=== PATIENT | female | born 1955 | race Caucasian/White ===

== ENCOUNTER 2024-09-12 08:02 | Outpatient (AMB) | payer OTHER, SELFPAY ==
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
[2024-09-12 08:13] VITALS: BP 110/80; PULSE 92; TEMP 37.2; O2SAT 97; BMI 27.3
== END 2024-09-12 08:44 | disposition home or self-care (01) ==
PROVIDERS: PCP Internal Medicine; Visit Provider Physician Assistant
DX: J06.9 Acute upper respiratory infection, unspecified (principal); H66.001 Acute suppurative otitis media without spontaneous rupture of ear drum, right ear

== ENCOUNTER 2024-09-12 08:02 | Outpatient (REF) | payer OTHER, SELFPAY ==
[2024-09-12 10:43] LABS: Influenza A PCR NEGATIVE (Negative); Influenza B PCR NEGATIVE (Negative); Resp Syncy Virus RNA Qual PCR NEGATIVE (Negative); SARS COV2 PCR INHOUSE POSITIVE (Negative)
== END 2024-09-12 08:03 | disposition home or self-care (01) ==
LOC: HO.LAB 08:02
PROVIDERS: PCP Internal Medicine; Visit Provider Physician Assistant
DX: J06.9 Acute upper respiratory infection, unspecified (principal); H66.001 Acute suppurative otitis media without spontaneous rupture of ear drum, right ear
CPT/HCPCS: 0241U; 99202

== ENCOUNTER 2024-09-13 09:00 | Outpatient (AMB) | payer OTHER, SELFPAY ==
[2024-09-13 09:06] VITALS: BP 122/88; PULSE 105; TEMP 36.8; O2SAT 98; BMI 27.3
--- NOTE | 2024-09-13 09:06 | MHC.OFFWIV ---
Intake Vital Signs 09/13/24 09:06 Height 5 ft 3 in Weight 154 lb BMI 27.3 BP 122/88 Blood Pressure Location Rt brachial Position Sitting Pulse 105 H Temp 98.3 F Temp Source Oral Pulse Oximetry (%) 98 Oxygen Delivery Method Room Air Intake Visit Reasons: EP-Covid pos, Worsening symptoms Intake Note: Pt is here today c/o Rt ear pain and she tested positive for COVID-19 yesterday Patient Tobacco Use Status: Never used Tobacco Allergies Sulfa (Sulfonamide Antibiotics) Allergy (Mild, Verified 09/13/24 09:11) Hives lisinopril Adverse Reaction (Mild, Verified 09/13/24 09:11) Cough HPI EP-Covid pos, Worsening symptoms HPI Details Patient returns to walk-in after presenting yesterday with viral/respiratory symptoms and ear pain. Diagnosed with otitis media and prescribed Augmentin. Patient also notes some worsening chest congestion. However, COVID nasal swab was obtained and is returning positive. PFSH Social History Patient Tobacco Use Status: Never used Tobacco Review of Systems Const Details: See HPI Physical Exam Vital Signs: Last Vital Signs Temp 98.3 F 09/13/24 09:06 BP 122/88 09/13/24 09:06 BMI result Body Mass Index 27.3 Const Other: Patient appears mildly ill/on comfortable HEENT Other: Erythema at right TM with inferior crescent of pus Left TM is mildly erythematous Posterior pharynx with erythema/injection No patchy exudates + anterior cervical chain lymphadenopathy Assessment & Plan Assessment & Plan (1) Otitis media: Code(s): H66.90 - Otitis media, unspecified, unspecified ear Qualifiers: Otitis media type: suppurative Chronicity: acute Laterality: right Recurrence: non-recurrent Spontaneous tympanic membrane rupture: without spontaneous rupture Qualified Code(s): H66.001 - Acute suppurative otitis media without spontaneous rupture of ear drum, right ear Plan: Ongoing right otitis media Patient is on Augmentin and as only started yesterday Continue current medication regimen Can use ibuprofen and warm compresses (2) COVID-19 virus infection: Code(s): U07.1 - COVID-19 Plan: Now testing positive for COVID-19 Lungs sound coarse bilaterally but otherwise clear. Will give her a script for Paxlovid Risks/benefits discussed with patient Hydrate well Call or return to office if worsening symptoms Medications: New nirmatrelvir-ritonavir 300 mg (150 mg x 2)-100 mg (Paxlovid) take TWO 150 mg tablets of nirmatrelvir with ONE 100 mg tablet of ritonavir twice daily for 5 days PO. Hold Statin. 30 ea 0RF U07.1 - COVID-19 Coding Level of Care Code Est Pt Level 3 (72854) Diagnoses Non-recurrent acute suppurative otitis media of right ear without spontaneous rupture of tympanic membrane H66.001 Otitis media type: suppurative Chronicity: acute Laterality: right Recurrence: non-recurrent Spontaneous tympanic membrane rupture: without spontaneous rupture COVID-19 virus infection U07.1
== END 2024-09-13 11:59 | disposition home or self-care (01) ==
LOC: HO.HMCWIC 09:01
PROVIDERS: PCP Internal Medicine
DX: H66.001 Acute suppurative otitis media without spontaneous rupture of ear drum, right ear (principal); U07.1 COVID-19

== ENCOUNTER → 2024-09-13 09:00 | Outpatient (BNVA) | payer OTHER, SELFPAY | PROVIDERS: PCP Internal Medicine | DX: H66.001 Acute suppurative otitis media without spontaneous rupture of ear drum, right ear (principal); U07.1 COVID-19 | CPT/HCPCS: 99212 ==

== ENCOUNTER 2024-11-26 13:29 | Outpatient (AMB) | payer OTHER, SELFPAY ==
--- OUTSIDE RECORDS SUMMARY | 2024-11-26 13:48 | XMS_ITS | Encounter Summary ---
Author Organization [facility] Address [address] [place] [address] Care Team Providers Care Electronic Scale Assembler And Tester Name Role Phone Bhakti Escalona MD Primary Care Prov ider Encounter Details Date Type Department Care Team Description 09/21/2023 Pt. Non Urgent Medical Question Adult Medicine [address] [address] Bhakti Escalona MD [address] [place] [address] Social History Tobacco Use Types Packs/Day Years Used Date Smoking Tobacco: Never Smokeless Tobacco: Never Alcohol Use Standard Drinks/Week Comments No 0 (1 standard drink = 0.6 oz pur e alcohol) 2-3 beer/wine per week Sex Assigned at Date Recorded Not on file Job Start Date Occupation Industry Not on file Not on file Not on file COVID-19 Exposure Response Date Recorded In the last 10 days, have yo u been in contact with someone who was confirmed or suspected to have Coronavirus/COVID-19? No / Unsure 08/24/2023 11:04 AM EST documented as of this encounter Plan of Treatment Not on file documented as of this encounter Visit Diagnoses Not on filedocumented in this encounter Care Teams Electronic Scale Assembler And Tester Relationship Specialty Start Date End Date Bhakti Escalona MD [address] [place] [address] PCP - General Internal Medicine 04/06/22 documented as of this encounter
--- OUTSIDE RECORDS SUMMARY | 2024-11-26 13:48 | XMS_ITS | Encounter Summary ---
Author Organization [facility] Address [address] [place] [address] Care Team Providers Care Biomedical Scientist Name Role Phone Michael Garland MD Primary Care Provider [phone] Gab Kerns PA-C Primary Care Provider Stephani Sun MD Primary Care Provider Louann Ramirez MD Primary Care Provider Bhakti Arciniega MD Primary Care Prov ider Encounter Details Date Type Department Care Team Description 07/03/2016 [facility] Medical Records [address] [place] [address] Abstract, Provider Social History Tobacco Use Types Packs/Day Years Used Date Smoking Tobacco: Never Smokeless Tobacco: Never Alcohol Use Standard Drinks/Week Comments Yes 0 (1 standard drink = 0.6 oz pur e alcohol) 2-3 beer/wine per week Sex Assigned at Date Recorded Not on file Job Start Date Occupation Industry Not on file Not on file Not on file documented as of this encounter Plan of Treatment Not on file documented as of this encounter Visit Diagnoses Not on filedocumented in this encounter Care Teams Biomedical Scientist Relationship Specialty Start Date End Date Michael Garland MD [address] [place], [place] [phone] PCP - General 12/26/09 02/27/21 Gab Kerns PA-C [address] [place] [address] PCP - General Internal Medicine 02/28/21 08/01/21 Stephani Sun MD [address] [place] [address] PCP - General Internal Medicine 08/02/21 09/06/21 Louann Ching MD [address] [place] [address] PCP - General Internal Medicine 09/07/21 04/05/22 Pascual Williamson, Bhakti Cooley MD [address] [place] [address] PCP - General Internal Medicine 04/06/22 documented as of this encounter
--- OUTSIDE RECORDS SUMMARY | 2024-11-26 13:48 | XMS_ITS | Encounter Summary ---
Author Organization [facility] Address [address] [place] [address] Care Team Providers Care Linux Consultant Name Role Phone Michael Garland MD Primary Care Provider [phone] Gab Kerns PA-C Primary Care Provider Stephani Sun MD Primary Care Provider Louann Ramirez MD Primary Care Provider Bhakti Arciniega MD Primary Care Prov ider Encounter Details Date Type Department Care Team Description 02/11/2019 Release of Information Medical Records [address] [place] [address] Abstract, Provider Social History Tobacco Use Types [...] on filedocumented in this encounter Care Teams Linux Consultant Relationship Specialty Start Date End Date Michael Garland MD [address] [place], [place] [phone] PCP - General 12/26/09 02/27/21 Gab Kerns PA-C [address] [place] [address] PCP - General Internal Medicine 02/28/21 08/01/21 Stephani Sun MD [address] [place] [address] PCP - General Internal Medicine 08/02/21 09/06/21 Louann Ching MD [address] [place] [address] PCP - General Internal Medicine 09/07/21 04/05/22 Pascual Williamson, Bhakti Cooley MD [address] [place] [address] PCP - General Internal Medicine 04/06/22 documented as of this encounter
--- OUTSIDE RECORDS SUMMARY | 2024-11-26 13:48 | XMS_ITS | Encounter Summary ---
Author Organization [facility] Address [address] [place] [address] Care Team Providers Care Endocrinology Specialist Name Role Phone Louann Ching MD [facility] Bhakti Wilson MD Primary Care Prov ider Encounter Details Date Type Department Care Team Description 09/27/2021 Driver/Guide Report Medical Records [address] [place] [address] Stanislaw Victor MD Social History Tobacco Use Types Packs/Day Years [...] on filedocumented in this encounter Care Teams Endocrinology Specialist Relationship Specialty Start Date End Date Louann Ching MD PCP - General Internal Medicine 09/07/21 04/05/22 Bhakti Escalona MD [address] [place] [address] PCP - General Internal Medicine 04/06/22 documented as of this encounter
--- OUTSIDE RECORDS SUMMARY | 2024-11-26 13:49 | XMS_ITS | Encounter Summary ---
Author Organization [facility] Address [address] [place] [address] Care Team Providers Care Steam Shovelman Name Role Phone Bhakti Escalona MD Primary Care Prov ider Encounter Details Date Type Department Care Team Description 05/17/2023 Meat Grading Machine Operator Report Medical Records [address] [place] [address] Jacquie Stovall Social History Tobacco Use Types Packs/Day Years [...] on filedocumented in this encounter Care Teams Steam Shovelman Relationship Specialty Start Date End Date Bhakti Escalona MD [address] [place], [place] [phone] PCP - General Internal Medicine 04/06/22 documented as of this encounter
--- OUTSIDE RECORDS SUMMARY | 2024-11-26 13:49 | XMS_ITS | Encounter Summary ---
Author Organization [facility] Address [address] [place] [address] Care Team Providers Care Rn Bone Marrow Transplant Name Role Phone Michael Garland MD Primary Care Provider [phone] Gab Kerns PA-C Primary Care Provider [phone] Stephani Sun MD Primary Care Provider Louann Ramirez MD Primary Care Provider Bhakti Arciniega MD Primary Care Prov ider Reason for Visit * Reason Onset Date Comments refill request 02/11/2018 Encounter Details Date Type Department Care Team Description 02/11/2018 Refill Adult Medicine [facility] - [address] [phone] Michael Garland MD [address] [place] [address] [phone] refill request Social History Tobacco Use Types Packs/Day Years Used Date Smoking Tobacco: Never Smokeless Tobacco: Never Alcohol Use Standard Drinks/Week Comments No 0 (1 standard drink = 0.6 oz pur e alcohol) 2-3 beer/wine per week Sex Assigned at Date Recorded Not on file Job Start Date Occupation Industry Not on file Not on file Not on file documented as of this encounter Miscellaneous Notes * Telephone Encounter - Nicole Hutton M.A. - 02/11/2018 3:46 PM EDT Lab Results Component Value Date NA 141 05/20/2017 K 4.2 05/20/2017 CO2 25.6 05/20/2017 CL 100 05/20/2017 BUN 13 05/20/2017 CREAT 0.8 05/20/2017 GLU 109 05/20/2017 CA 9.8 05/20/2017 GFR > 60 05/20/2017 * Telephone Encounter - Kalpana Laureano - 02/11/2018 8:53 AM EDT Patient would like script to be: E-PRESCRIBED/FAXED TO PHARMACY WHEN WAS THE PATIENT'S LAST APPOINTMENT IN ADULT MEDICINE? 12/26/17 WHEN WAS THE LAST TIME THE PATIENT SAW THEIR PCP? 11/07/17 Does patient have an upcoming appointment? Yes 05/15/18 (THE MEDICATION REQUESTED IS ON THE MED LIST ABOVE) All of the medications requested were on the CURRENT MEDS list Did you check the Pharmacy information above?: YES Patient wants: 90 -day supply Is this a mail order prescription request ? YES Patients current insurance carrier is: Payor: [employer] / Plan: [employer] POS $20/$30 [employer] [id number] / Product Type: POS [id number] documented in this encounter Plan of Treatment Not on file documented as of this encounter Visit Diagnoses Not on filedocumented in this encounter Care Teams Rn Bone Marrow Transplant Relationship Specialty Start Date End Date Michael Garland MD [address] [place] [address] PCP - General 12/26/09 02/27/21 Gab Kerns PA-C [address] [place] [address] PCP - General Internal Medicine 02/28/21 08/01/21 Stephani Sun MD [address] [place] [address] PCP - General Internal Medicine 08/02/21 09/06/21 Louann Ching MD [address] [place] [address] PCP - General Internal Medicine 09/07/21 04/05/22 Bhakti Escalona MD [address] [place] [address] PCP - General Internal Medicine 04/06/22 documented as of this encounter
--- OUTSIDE RECORDS SUMMARY | 2024-11-26 13:49 | XMS_ITS ---
Author Organization [facility] Address [address] [facility] [address] [place] [address] Care Team Providers Care Training Program Manager Name Role Phone Bhakti Garner Primary Care Provider TIARA Ortiz Unavailable [phone] Allergies Allergen (clinical drug ingredient) Drug/Non Drug Allergy documented on EMR Reaction Allergy Type Onset Date Status Substance with sulfonamide structure and antibacterial mechanism of action (substance) sulfa drugs (uncoded) Unknown Allergy Active VoSoL HC Unknown Drug Allergy Active lisinopril Lisinopril Unknown Drug Allergy Activ e Mold Unknown Allergy Active REASON FOR VISIT 3 month f/u Medications Medication SIG (Take, Route, Frequency, Duration) Notes Start Date End Date Status Nortriptyline HCl 25 MG 1 capsule Orally Once a day Active Turmeric 500 MG as directed Orally Not-Taking Reclast 5 MG/100ML as directed Intravenous Not-Taking ALPRAZolam 0.5 MG 1 tablet Orally Once a day Active Calcium Citrate + D Active Claritin 10 MG 1 tablet Orally Once a day Not-Taking PROzac 20 MG 1 capsule Orally Onc e a day Active Estradiol 0.1 MG/GM as directed Vaginal Not-Taking Losartan Potassium 50 MG 1 tablet Orally Once a day Active Simvastatin 40 MG 1 tablet in the even ing Orally Once a day Active Omeprazole 20 MG 1 capsule 30 minutes before morning meal Orally Once a day Active Problems Problem Type SNOMED Code ICD Code Onset Dates Problem Status W/U Status Risk Notes Problem Postmenopausal osteoporosis (456996605) Postmenopausal osteoporosis (M81.0) Active confirmed Vital Signs Weight 163.6 lbs 07/18/2024 Height 5ft 3in in 07/18/2024 BMI 28.98 kg/m2 07/18/2024 Heart Rate 80 /min 07/18/2024 Temperature 96.6 degrees Fahrenheit 07/18/20 24 Respiratory Rate 12 /min 07/18/2024 Encounters Encounter Location Date Provider Diagnosis [facility] [address] [facility] [address] [place] [address] 07/18/2024 TIARA SEAY Type 2 diabetes mellitus with hyperglycemia, without long-term current use of insulin E11.65 ; Hallux limitus, right M20.5X1 and Postmenopausal osteoporosis M81.0 Assessments Encounter Date Diagnosis (ICD Code) Assessment Notes Treatment Notes Treatment Clinical Notes Section Notes 07/18/2024 Type 2 diabetes mellitus with hyperglycemia, without long-term current use of insulin (ICD-10 - E11.65) Discussed with patient regarding proper glucose control, exercise, and diet. Explained to patient proper shoe gear, and importance of daily foot checks. I reviewed neuropathy and why it occurs in diabetics. I educated the patient on proper blood sugar control and the importance of an HgBA1c of less than 7.0%. I reviewed the signs and symptoms of neuropathy with the patient. 07/18/2024 Hallux limitus, right (ICD-10 - M20.5X1) The foot callus is resolved. 07/18/2024 Postmenopausal osteoporosis (ICD-10 - M81.0) I discussed her osteoporosis diagnosis. We discussed she is a higher risk of developing stress fractures in the feet. I discussed the signs and symptoms of a stress fracture. We discussed this does not have to be activity dependent. I recommended she call the office with any new onset pain or swelling in the feet. Plan Of Treatment Treatment Notes Assessment Notes Type 2 diabetes mellitus wit h hyperglycemia, without long-term current use of insulin Discussed with patient regarding proper glucose control, exercise, and diet. Explained to patient proper shoe gear, and importance of daily foot checks. I reviewed neuropathy and why it occurs in diabetics. I educated the patient on proper blood sugar control and the importance of an HgBA1c of less than 7.0%. I reviewed the signs and symptoms of neuropathy with the patient. Hallux limitus, right The foot callus is resolved. Postmenopausal osteoporosis I discussed her osteoporosis diagnosis. We discussed she is a higher risk of developing stress fractures in the feet. I discussed the signs and symptoms of a stress fracture. We discussed this does not have to be activity dependent. I recommended she call the office with any new onset pain or swelling in the feet. Next Appt Details Follow Up: 3 Months, Reason: Provider Name:TIARA PURVIS SEAY, 2025 11:30:00 AM, [address] [facility], [facility] [address], [place], [address], Progress Notes * Marichuy HARRISONOB: [birth year] (69 yo F)Acc No.[id number]:07/18/2024 Progress Note Patient:?Nicole HARRISON Provider:?Tiara Seay DPM :1955???Age:69 Y???Sex:Female D ate:07/18/2024 Address:[address] [place], [place] [id number] Pcp:Bhakti Garner Subjective: * Chief Complaints: * ???3 month f/u * HPI: ???Constitutional:? This 69 y/o female returns to my office for a diabetic foot evaluation. The callus has not returned. Overall she denies any pain or recent issues with her feet. She was diagnosed with osteoporosis and is awaiting starting Reclast. She denies any recent stress fractures. She has no other foot complaints this visit. Her hba1c was elevated last time at 7.0. Her last visit with her PCP care team for diabetes management was 03/26/2024. Allergies and medical history reviewed. * ROS:?GENERAL: Pt denies nausea, fever, vomiting, chills, or shortness of breath. Pt in NAD. ALLERGY: patient denies any new allergy HEME/ONC: patient denies any bleeding or clotting disorders CARDIOLOGY: pt denies chest pain, palpitations LUNGS: pt denies shortness of breath ABDOMEN: patient denies any bloating, abdominal pain, or swelling MUSCULOSKELETAL: See HPI, she has occasional joint pain SKIN: see HPI, otherwise no lesions, rash or itching NEURO: No persistent headache, weakness or numbness PSYCH: patient has anxiety The remainder of the review of systems is noncontributory. * Medical History:? * Surgical History:?tonsillect citlali and adenoidectomy eye surgery plastic surgery- ears 4 D&C wisdom teeth extraction hysterectomy * Hospitalization/Major Diagno stic Procedure:?tonsillectomy and adenoidectomy eye surgery plastic surgery- ears hysterectomy * Family History:?Father: hear t attack.?Mother: diabetes, hypertension, , hypercholesterolemia, unknown type of cancer.? * Social History:?Tobacco: no Alcohol: occasional . * Medications:?TakingCalcium C itrate + D ALPRAZolam 0.5 MG Tablet 1 tablet Orally Once a day Nortriptyline HCl 25 MG Capsule 1 capsule Orally Once a day Omeprazole 20 MG Capsule Delayed Release 1 capsule 30 minutes before morning meal Orally Once a day Simvastatin 40 MG Tablet 1 tablet in the evening Orally Once a day Losartan Potassium 50 MG Tablet 1 tablet Orally Once a day PROzac 20 MG Capsule 1 capsule Orally Once a day Taking Calcium Citrate + D Taking ALPRAZolam 0.5 MG Tablet 1 tablet Orally Once a day Taking Nortriptyline HCl 25 MG Capsule 1 capsule Orally Once a day Taking Omeprazole 20 MG Capsule Delayed Release 1 capsule 30 minutes before morning meal Orally Once a day Taking Simvastatin 40 MG Tablet 1 tablet in the evening Orally Once a day Taking Losartan Potassium 50 MG Tablet 1 tablet Orally Once a day Taking PROzac 20 MG Capsule 1 capsule Orally Once a day Not-TakingTurmeric 500 MG Capsule as directed Orally Claritin 10 MG Tablet 1 tablet Orally Once a day Estradiol 0.1 MG/GM Cream as directed Vaginal Reclast 5 MG/100ML Solution as directed Intravenous Medication List reviewed and reconciled with the patientNot-Taking Turmeric 500 MG Capsule as directed Orally Not-Taking Claritin 10 MG Tablet 1 tablet Orally Once a day Not-Taking Estradiol 0.1 MG/GM Cream as directed Vaginal Not-Taking Reclast 5 MG/100ML Solution as directed Intravenous Medication List reviewed and reconciled with the patient * Allergies:?Moldsulfa drugsLi sinoprilVoSoL HCno[Allergies Verified] Objective: * Vitals:?Wt:163.6lbs, Ht: 5ft 3in, BMI:28.98Index, HR:80/min, Temp:96.6F, RR:12/min, Ht-cm: 160.02, Wt-k.21 kg. * Examination: ???General Examination: ???GENERAL: Patient appears well nourished, with NAD. ?VASCULAR: Dorsalis pedis pulses are 2/4 bilaterally and Posterior tibial pulses are 2/4 bilaterally. Capillary filling time within normal limits the digits. No pallor on elevation or rubor on dependency. No varicosities. Denies rest pain or claudication pain. Each foot temperature is within normal limits. ?NEUROLOGICAL: Sharp/dull sensation intact bilaterally, protective sensation intact 10/10 with 5.07 [place] Alondra bilaterally, vibratory sensation with tuning fork intact to the tibial tuberosity bilaterally, position sense intact bilaterally to the tibial tuberosity. ?ORTHOPEDIC: Good muscle strength 4+/5 of all flexors and extensors. Dorsi flexion of ankle , 0 degrees, plantar flexion WNL. No muscle atrophy. Atrophied plantar fat pad bilaterally. ?DERMATOLOGICAL: Normal skin temperature, normal skin turgor. ?BIOMECHANICS: STJ ROM WNL, MTJ ROM WNL, 1st MPJ ROM limited. On weight-bearing, rectus foot position. ?SHOES: sneakers. Assessment: * Assessment: 1.?Type 2 diabetes mellitus with hyperglycemia, without long-term current use of insulin - E11.65 (Primary)?2.?Hallux limitus, right - M20.5X1?3.?Postmenopausal osteoporosis - M81.0? Plan: * Treatment: 2.?Hallux limitus, right? Notes: The foot callus is resolved. ?? 3.?Postmenopausal osteoporos is? Notes: I discussed her osteoporosis diagnosis. We discussed she is a higher risk of developing stress fractures in the feet. I discussed the signs and symptoms of a stress fracture. We discussed this does not have to be activity dependent. I recommended she call the office with any new onset pain or swelling in the feet.?? * Procedure Codes:? * Follow Up:?3 Months * Billing Information: * Visit Code:? 51996 Office Visit, Est Pt., Level 3. * Procedure Codes:? * Sign off status: Completed true * Provider:?Tiara Seay DPM Date:? 07/18/2024 Generated for Dennis zambrano/Faxing/eTransmitting on:?11/26/2024 01:49 PM EST History and Physical Notes * HPI (History of Present Illness) Category Sub-Category Detail Notes Category Not es Constitutional This 69 y/o f bernie returns to my office for a diabetic foot evaluation. The callus has not returned. Overall she denies any pain or recent issues with her feet. She was diagnosed with osteoporosis and is awaiting starting Reclast. She denies any recent stress fractures. She has no other foot complaints this visit. Her hba1c was elevated last time at 7.0. Her last visit with her PCP care team for diabetes management was 03/26/2024. Allergies and medical history reviewed. Examination Category Sub-Category Detail Notes Category Not es General Examination GENERAL: Patient appears well nourished, with NAD. VASCULAR: Dorsalis pedis pulses are 2/4 bilaterally and Posterior tibial pulses are 2/4 bilaterally. Capillary filling time within normal limits the digits. No pallor on elevation or rubor on dependency. No varicosities. Denies rest pain or claudication pain. Each foot temperature is within normal limits. NEUROLOGICAL: Sharp/dull sensation intact bilaterally, protective sensation intact 10/10 with 5.07 [place] Alondra bilaterally, vibratory sensation with tuning fork intact to the tibial tuberosity bilaterally, position sense intact bilaterally to the tibial tuberosity. ORTHOPEDIC: Good muscle strength 4+/5 of all flexors and extensors. Dorsi flexion of ankle , 0 degrees, plantar flexion WNL. No muscle atrophy. Atrophied plantar fat pad bilaterally. DERMATOLOGICAL: Normal skin temperature, normal skin turgor. BIOMECHANICS: STJ ROM WNL, MTJ ROM WNL, 1st MPJ ROM limited. On weight-bearing, rectus foot position. SHOES: sneakers
--- OUTSIDE RECORDS SUMMARY | 2024-11-26 13:49 | XMS_ITS | Encounter Summary ---
Author Organization [facility] Address [address] [place] [address] Care Team Providers Care Conveyor Belt Installer Name Role Phone Michael Garland MD Primary Care Provider [phone] Gab Kerns PA-C Primary Care Provider [phone] Stephani Sun MD Primary Care Provider Louann Ramirez MD Primary Care Provider Bhakti Arciniega MD Primary Care Prov ider Reason for Visit * Reason Onset Date Comments Buggyman Feedback 03/20/2016 Encounter Details Date Type Department Care Team Description 03/20/2016 Telephone Adult Medicine [facility] - [address] [phone] Michael Garland MD [address] [place] [address] [phone] Buggyman Feedback Social History Tobacco Use Types Packs/Day Years [...] encounter Miscellaneous Notes * Telephone Encounter - Michael Garland MD - 03/20/2016 11:14 AM EDT She will need x rays prior to the podiatry appt Find out which side the little piggy is deformed * Telephone Encounter - Jonna Russell - 03/20/2016 11:03 AM EDT Please review this patients new referral request. The referral has been pended. Please complete thefollowing: If approved> sign order If denied>please give instructions and route to your practice nursing pool. Practice nurse should inform referrals and the patient if denied. * Telephone Encounter - Antoine Scott - 03/20/2016 10:48 AM EDT Request for a referral to a [facility]ist for a patient with a [facility] PCP. If patient does NOT have a [facility] PCP they must obtain a referral from their PCP before being seen-do not submit request to Referrals department-contact patient. Luan ANSARI and Juanito ANSARI should not see patients with community PCP's as they are not billed as specialists. Specialty patient is being referred to: Podiatry Name of Specialist patient is seeing: TBD Reason/diagnosis for visit: Sore feet, bend pinkie toe Date of appoinment: TBD If retro, date referral needs to start: TBD Michael Garland Payor: [employer] / Plan[facility] POS [id number] / Product Type: POS [id number] documented in this encounter Plan of Treatment Not on file documented as of this encounter Visit Diagnoses Diagnosis Toe deformity, unspecified laterality- Primary documented in this encounter Care Teams Conveyor Belt Installer Relationship Specialty Start Date End Date Michael Garland MD [address] [place] [address] PCP - General 12/26/09 02/27/21 Gab Kerns PA-C [address] [place] [address] PCP - General Internal Medicine 02/28/21 08/01/21 Stephani Sun MD [address] [place] [address] PCP - General Internal Medicine 08/02/21 09/06/21 Louann Ching MD [address] [place] [address] PCP - General Internal Medicine 09/07/21 04/05/22 Pascual Williamson, Bhakti Cooley MD [address] [place] [address] PCP - General Internal Medicine 04/06/22 documented as of this encounter
--- OUTSIDE RECORDS SUMMARY | 2024-11-26 13:49 | XMS_ITS | Encounter Summary ---
Author Organization [facility] Address [address] [place] [address] Care Team Providers Care Senior Database Administrator Name Role Phone Bhakti Escalona MD Primary Care Prov ider Encounter Details Date Type Department Care Team Description 03/23/2023 [facility] [address] [place] [address] Abstract, Provider Social History Tobacco Use Types [...] suspected to have Coronavirus/COVID-19? No / Unsure 03/23/2023 11:19 AM EDT documented as of this encounter Plan of Treatment Not on file documented as of this encounter Visit Diagnoses Not on filedocumented in this encounter Care Teams Senior Database Administrator Relationship Specialty Start Date End Date Bhakti Escalona MD [address] [place] [address] PCP - General Internal Medicine 04/06/22 documented as of this encounter
--- OUTSIDE RECORDS SUMMARY | 2024-11-26 13:49 | XMS_ITS | Encounter Summary ---
Author Organization [facility] Address [address] [place] [address] Care Team Providers Care Senior Research Analyst Name Role Phone Michael Garland MD Primary Care Provider [phone] Gab Kerns PA-C Primary Care Provider Stephani Sun MD Primary Care Provider Louann Ramirez MD Primary Care Provider Bhakti Arciniega MD Primary Care Prov ider Encounter Details Date Type Department Care Team Description 09/16/2016 Night Triage Doc Medical Records [address] [place] [address] Abstract, Provider Social History Tobacco Use Types [...] filedocumented in this encounter Care Teams Senior Research Analyst Relationship Specialty Start Date End Date Michael Garland MD [address] [place], [place] [phone] PCP - General 12/26/09 02/27/21 Gab Kerns PA-C [address] [place] [address] PCP - General Internal Medicine 02/28/21 08/01/21 Stephani Sun MD [address] [place] [address] PCP - General Internal Medicine 08/02/21 09/06/21 Louann Ching MD [address] [place] [address] PCP - General Internal Medicine 09/07/21 04/05/22 Pascual Williamson, Bhakti Cooley MD [address] [place] [address] PCP - General Internal Medicine 04/06/22 documented as of this encounter
--- OUTSIDE RECORDS SUMMARY | 2024-11-26 13:49 | XMS_ITS | Encounter Summary ---
Author Organization [facility] Address [address] [place] [address] Care Team Providers Care Application Support Lead Name Role Phone Louann Ching MD Primary Care Provider Bhakti Arciniega MD Primary Care Prov ider Encounter Details Date Type Department Care Team Description 01/24/2022 Business Doc Medical Records [address] [place] [address] Abstract, Provider Social History Tobacco Use Types [...] suspected to have Coronavirus/COVID-19? No / Unsure 01/20/2022 10:51 AM EDT documented as of this encounter Plan of Treatment Not on file documented as of this encounter Visit Diagnoses Not on filedocumented in this encounter Care Teams Application Support Lead Relationship Specialty Start Date End Date Louann Ching MD PCP - General Internal Medicine 09/07/21 04/05/22 Bhakti Escalona MD [address] [place] [address] PCP - General Internal Medicine 04/06/22 documented as of this encounter
--- OUTSIDE RECORDS SUMMARY | 2024-11-26 13:49 | XMS_ITS | Encounter Summary ---
Author Organization [facility] Address [address] [place] [address] Care Team Providers Care Investment Counselor Name Role Phone Gab Kerns PA-C Primary Care Provider [phone] Stephani Sun MD Primary Care Provider Louann Ramirez MD Primary Care Provider Bhakti Arciniega MD Primary Care Prov ider Encounter Details Date Type Department Care Team Description 06/23/2021 Pt. Non Urgent Medical Question Adult Medicine [address] [phone] Gab Kerns PA-C [address] [place] [address] [phone] Social History Tobacco Use Types Packs/Day Years [...] encounter Miscellaneous Notes * Telephone Encounter - Liliya Wilson M.A. - 06/23/2021 12:05 PM EDTFrom: Nicole Mccracken To: Miguel A Kerns Sent: 06/23/2021 11:40 AM EDT Subject: Ulises Mccracken 06-17-1934 Ad Healy needs a refill for metformin 500 mg Just to let you know his eye drMichelle nazario said cospot eye drops can make you short of breath and fatigued We are waiting for a ct of rt side pain i am hoping it is just from physical therapy We can rest ofappointments till ct Ramón camarena documented in this encounter Plan of Treatment Not on file documented as of this encounter Visit Diagnoses Not on filedocumented in this encounter Care Teams Investment Counselor Relationship Specialty Start Date End Date Gab Kerns PA-C [address] [place] [address] PCP - General Internal Medicine 02/28/21 08/01/21 Stephani Sun MD [address] [place] [address] PCP - General Internal Medicine 08/02/21 09/06/21 Louann Ching MD [address] [place] [address] PCP - General Internal Medicine 09/07/21 04/05/22 Bhakti Escalona MD [address] [place] [address] PCP - General Internal Medicine 04/06/22 documented as of this encounter
--- OUTSIDE RECORDS SUMMARY | 2024-11-26 13:49 | XMS_ITS | Clinical Summary ---
Author Organization [facility] Address [address] [place] [address] Care Team Providers Care Patrol Sergeant Name Role Phone Bhakti Escalona MD Primary Care Prov ider Allergies Active Allergy Reactions Severity Noted Date Comments Lisinopril Cough Low 01/03/2017 Mold Headaches 08/21/2023 Sulfa Drugs Hives/Urticaria,Rash /Dermatit is 04/27/2009 Hydrocortisone-Acetic Acid Rash/Dermatitis Low 07/09 Medications Medication Sig Dispensed Refills Start Date End Date Status CPAP Historical (HISTORICAL CPAP)Indications:Sl eep apnea 9 cm by Nasal route at bedtime. Via full face mask/ [employer] 0 Active Calcium Citrate-Vitamin D (CITRACAL + D OR) Take by mouth. 0 Act armando Turmeric 500 MG Cap Take by mouth. 0 A ctive Blood Glucose Monitoring Suppl (FreeStyle Lite) Device Use to check blood sugar once daily 100 Each 5 07/20/2021 Active FreeStyle Lancets Misc Use to check blood sugar once daily 100 Each 5 07/20/2021 Active Glucose Blood (FREESTYLE LITE) Strip Use to check blood sugar once daily 100 Strip 5 07/20/2021 Active nortriptyline (PAMELOR) 25 MG capsuleIndications: LILIYA (obstructive sleep apnea) Take 25 mg by mouth at bedtime. 0 Active omeprazole (PRILOSEC) 20 MG capsule Take 1 Capsule by mouth daily. 90 Capsule 0 01/17/2023 Active estradiol (ESTRACE) 0.1 MG/GM vaginal cream 1 Gram Vaginally Twice a Week for 90 Days 0 05/07/2023 Active loratadine (CLARITIN) 10 MG tablet Take 1 Tablet by mouth daily. 0 Active MAGNESIUM OR Take by mouth as needed. 0 Active Zoledronic Acid (Reclast) 5 MG/100ML Solution Inject 5 mg into the vein Once. 100 mL 0 01/11/2024 Active simvastatin (ZOCOR) 40 MG tablet TAKE 1 TABLET BY MOUTH AT BEDTIME 90 Tablet 1 01/21/2024 Active losartan (COZAAR) 50 MG tablet TAKE 1 TABLET BY MOUTH DAILY 90 Tablet 1 01/21/2024 Active butalbital-aspirin- caffeine (FIORINAL) capsule Take 1 Capsule by mouth every 6 hours as needed for Headaches. 30 Capsule 0 03/05/2024 Active fluoxetine (PROZAC) 20 MG capsule TAKE 1 CAPSULE BY MOUTH DAILY 90 Capsule 1 03/18/2024 Active alprazolam (XANAX) 0.5 MG tablet Take 1 Tablet by mouth daily as needed for Anxiety. 30 Tablet 0 07/29/2024 Active Active Problems Problem Noted Date Fatty liver 02/26/2024 Palpitations 12/15/2022 Osteopenia 11/03/2022 Type 2 diabetes mellitus wit hout complication, without long-term current use of insulin 07/20/2021 Insomnia 06/04/2019 Adjustment disorder with depressed mood 11/08/2016 Generalized anxiety disorder 11/08/2016 HTN (hypertension) 03/10/2015 Impaired fasting glucose 04/18/2014 Benign neoplasm of colon 06/19/2012 Overview: CN + snare 06/19/2012: 12 mm sigmoid colon polyp. Tubular adenoma and hyperplastic. CN 2015: LRA x 2; next CN 2020. Attention deficit hyperactivity disorder (ADHD) 05/10/2011 GERD (gastroesophageal reflux disease) 0 01/12/2010 Overview: Controlled with ppi daily. 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 Polysomnogram PAP treatment study. Date 10/26/2020. Wt 160#; BMI 28; SE 79 % SM 89 %; spent 13 % of the study in REM. On CPAP @ 7-11; AHI < 0.5; and, average oxygen saturation was 93-94%. For the entire study, PLMs ~0. Pure hypercholesterolemia 04/27/2009 Depression 04/27/2009 Allergic rhinitis 04/27/2009 Peptic ulcer 04/27/2009 Overview: Controlled with ppi daily. IBS (irritable bowel syndrome) 9 Overview: Bloating, gas, pain, constipation, onset age 40's, improved after menopause. Resolved Problems Problem Noted Date Resolved Date Anxiety state, unspecified 05/10/201111/08 Immunizations Name Administration Dates Next Due COVID-19 (Pfizer) 03/29/2022 COVID-19 (Pfizer) Pt Reported 10/06/2021, 021,01/20/2021 Covid-19 Bivalent (Pfizer) 07/13/2022 Influenza (> 6 Months) 07/23/2016,2014,07/26/2014,08/03,07/09/2012,07/02/2011,07/20/2010 ,06/18/2009 Influenza Flu (PT Reported) 07/07/2019 Influenza Vaccine-preservati ve Free-quadrivalent 4 Years 07/19/2021 Influenza Vaccine-quadrivale nt 4 Years Plus 07/07/2018,06/27/2017 Influenza vaccine high dose age 65 and over 06/22/2023,07/25/2022,07/09/2020 PREVNAR 20 06/22/2023 Pneumoccoccal(Adult) Polysac charide PPSV23 01/20/2022 Shingrix (Recombinant zoster vaccine) 03/04/2019 TD (STATE SUPPLIED FOR ADULT S AND CHILDREN) 08/01/2019 Tdap 06/24/2009 Family History Medical History Relation Name Comments AL Father age 65 Stroke Father Diabetes Maternal Grandfather Cancer, Other Maternal Grandmother Alzheimers Disease Mother Colon Polyps Mother Diabetes Mother Cancer, Other Paternal Grandmother Relation Name Status Comments Aunt Alive ovarian cancer Father (Age 74) stroke Maternal Grandfather Maternal Grandmother Mother (Age 73) dm alzheim ers cancer ? primary only child Paternal Grandmother Social History Tobacco Use Types Packs/Day Years Used Date Smoking Tobacco: Never Smokeless Tobacco: Never Tobacco Cessation:Counseling Given: Not Answered Alcohol Use Standard Drinks/Week Comments No 0 (1 standard drink = 0.6 oz pur e alcohol) 2-3 beer/wine per week Sex Assigned at Date Recorded Not on file Job Start Date Occupation Industry Not on file Not on file Not on file Last Filed Vital Signs Vital Sign Reading Time Taken Comments Blood Pressure 126/77 12/31/2023 10:32 AM EDT Pulse 111 12/31/2023 10:32 AM EDT Temperature 35.6 ??C (96.1 ??F) 12/31/2023 10:32 AM E DT Respiratory Rate 14 12/31/2023 10:32 AM EDT Oxygen Saturation 98% 10/03/2023 2:48 PM EST Inhaled Oxygen Concentration - - Weight 76.8 kg (169 lb 6.4 oz) 12/31/2023 10:32 AM EDT Height 160 cm (5' 3 ) 12/31/2023 10:32 AM EDT Body Mass Index 30.01 12/31/2023 10:32 AM EDT Plan of Treatment Health Maintenance Due Date Last Done Comments DIABETES: BLOOD SUGAR CONTROL TEST (HGBA1C) 05/28/2024 02/26/2024, 02/05/2024, 02/05/2024, Additional history exists Covid-19 Vaccine ( season) 2024 07/13/2022, 07/13/2022, 03/29/2022, Additional history exists INFLUENZA (#1) 2024 06/22/2023, 07/08, 07/19/2021, Additional history exists BMI CHECK/ADVISE 10/08/2024 12/31/2023, , 03/23/2023, Additional history exists BONE DENSITY SCREENING 11/03/2024 11/03/2022 DIABETES: ANNUAL EYE EXAM 12/11/20242023 (External Completion), 12/13/2022 (External Completion), 10/11/2021 (External Completion) MAMMOGRAM 12/19/2024 12/20/2023 (Exte rnal Completion), 08/30/2022 (External Completion), 07/12/2021 (External Completion), Additional history exists DIABETES: ANNUAL FOOT EXAM 01/13/202501/13, 12/18/2023 (External Completion), 12/15/2022, Additional history exists DIABETES/HEART DISEASE: ANNUAL CHOLESTEROL (LDL) 02/25/2025 02/26/2024, 02/05/2024, 08/28/2023, Additional history exists DIABETES: ANNUAL URINE PROTEIN TEST (MICROALBUMIN) 02/25/2025 02/26/2024, 02/05/2024, 08/28/2023, Additional history exists COLON CANCER SCREENING 02/23/2027 (Completed), 08/07/2016, 06/19/2012, Additional history exists DTAP/TDAP/TD (3 - Td or Tdap) 08/01/2029 08/01/2019, 06/24/2009 SHINGLES VACCINE Addressed 09/14/2020 (Ext ernal Completion), 07/14/2020 (External Completion), 03/04/2019 Overridden with the intention of not completing the topic PNEUMOCOCCAL VACCINE Completed 06/22/2023, 01/21/20 HEPATITIS C SCREENING Completed 02/26/2024, 013 Care Teams Patrol Sergeant Relationship Specialty Start Date End Date Bhakti Escalona MD [address] [place] [id number] PCP - General Internal Medicine 04/06/22
--- OUTSIDE RECORDS SUMMARY | 2024-11-26 13:49 | XMS_ITS | Encounter Summary ---
Author Organization [facility] Address [address] [place] [address] Care Team Providers Care Bone Drier Operator Name Role Phone Michael Garland MD Primary Care Provider [phone] Gab Kerns PA-C Primary Care Provider + [phone] Stephani [place] MD Primary Care Provider Louann Ramirez MD Primary Care Provider Bhakti Arciniega MD Primary Care Prov ider Encounter Details Date Type Department Care Team Description 09/16/2018 Dry End Operator Report Medical Records [address] [place] [address] Jacquie Stovall Social History Tobacco Use Types [...] on filedocumented in this encounter Care Teams Bone Drier Operator Relationship Specialty Start Date End Date Michael Garland MD [address] [place], [place] [phone] PCP - General 12/26/09 02/27/21 Gab Kerns PA-C [address] [place] [address] PCP - General Internal Medicine 02/28/21 08/01/21 Stephani [place] MD [address] [place] [address] PCP - General Internal Medicine 08/02/21 09/06/21 Louann Ching MD [address] [place] [address] PCP - General Internal Medicine 09/07/21 04/05/22 Bhakti Escalona MD [address] [place] [address] PCP - General Internal Medicine 04/06/22 documented as of this encounter
--- OUTSIDE RECORDS SUMMARY | 2024-11-26 13:49 | XMS_ITS ---
Author Organization [facility] Address [address] [facility] [address] [place] [address] Care Team Providers Care Project Management Professor Name Role Phone KAREN CAICEDO MD, CLARITZA Primary Care Provider Kristin Kurtz [phone] REASON FOR VISIT Annual (YELLOW FORM DONE) Encounters Encounter Location Date Provider Diagnosis [facility] [address] [place] [address] 09/19/2024 Kristin Carranza Plan Of Treatment Next Appt Details Provider Name:Kristin cedillo, 12/25/2024 10:20:00 AM, [address] [facility], [address], [place], [address], Progress Notes * HUNTERCORWINOB: [birth year] (69 yo F)Acc No.[id number]:09/19/2024 PROGRESS NOTES Patient:?KRANTHI HARRISON Appointment Provider:?Kristin cedillo M.D. :1955???Age:69 Y???Sex:Female D ate:09/19/2024 Address:[facility] [address] , [id number] Pcp:CLARITZA CAICEDO MD Subjective: * Chief Complaints: * ???1. Annual (YELLOW FORM DO NE). * Medical History:? Objective: * Vitals:? Assessment: Plan: * Treatment: * Images: Billing Information: * Visit Code:? * Procedure Codes:? * Electronic signature of Becca Carranza MD on 11/26/2024 at 01:48 PM EST Sign off status: Pending * Appointment Provider:?Kristin Carranza M.D. Date:?09/19/2024 Generated for Dennis zambrano/Cesar/Pepito on:?11/26/2024 01:48 PM EST
--- OUTSIDE RECORDS SUMMARY | 2024-11-26 13:49 | XMS_ITS | Encounter Summary ---
Author Organization [facility] Address [address] [place] [address] Care Team Providers Care Grocery Cashier Name Role Phone Bhakti Escalona MD Primary Care Prov ider Encounter Details Date Type Department Care Team Description 11/06/2022 [facility] [address] [place] [id number] Md Jolly Social History Tobacco Use Types Packs/Day Years [...] suspected to have Coronavirus/COVID-19? No / Unsure 11/03/2022 1:48 PM EST documented as of this encounter Plan of Treatment Not on file documented as of this encounter Visit Diagnoses Not on filedocumented in this encounter Care Teams Grocery Cashier Relationship Specialty Start Date End Date Bhakti Escalona MD [address] [place], [place] [phone] PCP - General Internal Medicine 04/06/22 documented as of this encounter
--- OUTSIDE RECORDS SUMMARY | 2024-11-26 13:49 | XMS_ITS | Encounter Summary ---
Author Organization [facility] Address [address] [place] [address] Care Team Providers Care Stone Polisher Hand Name Role Phone Gab Kerns PA-C Primary Care Provider [phone] Stephani [place] MD Primary Care Provider Louann Ramirez MD Primary Care Provider Bhakti Arciniega MD Primary Care Prov ider Encounter Details Date Type Department Care Team Description 04/25/2021 Crocodile Farmer Report Medical Records [address] [place] [address] Stanislaw Victor MD Social History Tobacco Use [...] on filedocumented in this encounter Care Teams Stone Polisher Hand Relationship Specialty Start Date End Date Gab Kerns PA-C [address] [place] [address] PCP - General Internal Medicine 02/28/21 08/01/21 Stephani [place] MD [address] [place] [address] PCP - General Internal Medicine 08/02/21 09/06/21 Louann Ching MD [address] [place], [place] [phone] PCP - General Internal Medicine 09/07/21 04/05/22 Bhakti Escalona MD [address] [place] [id number] PCP - General Internal Medicine 04/06/22 documented as of this encounter
--- OUTSIDE RECORDS SUMMARY | 2024-11-26 13:49 | XMS_ITS | Encounter Summary ---
Author Organization [facility] Address [address] [place] [address] Care Team Providers Care Ski Guide Name Role Phone Michael Garland MD Primary Care Provider [phone] Gab Kerns PA-C Primary Care Provider + [phone] Stephani [place] MD Primary Care Provider Louann Ramirez MD Primary Care Provider Bhakti Arciniega MD Primary Care Prov ider Encounter Details Date Type Department Care Team Description 01/19/2016 Technical Support Internship Report Medical Records [address] [place] [address] Jacquie Stovall Social History Tobacco Use Types [...] on filedocumented in this encounter Care Teams Ski Guide Relationship Specialty Start Date End Date Michael Garland MD [address] [place], [place] [phone] PCP - General 12/26/09 02/27/21 Gab Kerns PA-C [address] [place] [address] PCP - General Internal Medicine 02/28/21 08/01/21 Stephani [place] MD [address] [place] [address] PCP - General Internal Medicine 08/02/21 09/06/21 Louann Ching MD [address] [place] [address] PCP - General Internal Medicine 09/07/21 04/05/22 Bhakti Escalona MD [address] [place] [address] PCP - General Internal Medicine 04/06/22 documented as of this encounter
--- OUTSIDE RECORDS SUMMARY | 2024-11-26 13:49 | XMS_ITS | Clinical Summary ---
Author Organization [facility] Address [address] [place] [address] Care Team Providers Care Gm Mobile Name Role Phone Bhakti Escalona MD Primary Care Prov ider Allergies Active Allergy Reactions Criticality Noted Date Comments Hydrocortisone-Acetic Acid Rash Low 08/01/2011 Lisinopril Other (See Comments) Low 01/03/2017 Molds & Smuts Other (See Comments) 08/21/2023 Sulfa Antibiotics Hives 04/27/2009 Other reaction(s): Rash/Dermatitis Medications Medication Sig Dispensed Refills Start Date End Date Status simvastatin (ZOCOR) tablet 40 mg 0 04/12/2024 Active SUMAtriptan (IMITREX) 25 MG tablet 0 04/16/2021 Active ALPRAZolam (XANAX) 0.5 MG tablet 0 02/04/2024 Active FLUoxetine (PROzac) 20 MG capsule 0 03/19/2024 Active fluticasone (FLONASE) 50 MCG/ACT nasal spray 2 puff into both nostrils once a day 0 Active losartan (COZAAR) tablet 50 mg 0 04/12/2024 Active nortriptyline (PAMELOR) 25 MG capsule 0 05/09/2024 Active estradiol (ESTRACE) 0.1 MG/GM vaginal cream 0 02/14/2024 Active clobetasol (TEMOVATE) 0.05 % ointment 0 02/13/2024 Active hrqobmkpha-pnrvlao-yg ffeine (FIORINAL) 50-325-40 MG capsule TAKE 1 CAPSULE BY MOUTH EVERY 6 HOURS NEEDED FOR HEADACHES 0 03/06/2024 Active Active Problems Problem Noted Date Diagnosed Date Osteoporosis 03/25/2024 Social History Tobacco Use Types Packs/Day Years Used Date Smoking Tobacco: Never Assessed Sex and Gender Information Value Date Recorded Sex Assigned at Male 03/21/2024 10:09 AM EDT Gender Identity Not on file Sexual Orientation Not on file Job Start Date Occupation Industry Not on file Not on file Not on file Last Filed Vital Signs Vital Sign Reading Time Taken Comments Blood Pressure 146/98 05/13/2024 2:20 PM EDT Pulse 93 05/13/2024 2:20 PM EDT Temperature 36.1 ??C (97 ??F) 05/13/2024 2:20 PM EDT Respiratory Rate 18 05/13/2024 2:20 PM EDT Oxygen Saturation 99% 05/13/2024 2:20 PM EDT Inhaled Oxygen Concentration - - Weight - - Height - - Body Mass Index - - Plan of Treatment Health Maintenance Due Date Last Done Comments Hepatitis C Screening 1955 Depression Screening 1969 Preventative Health Evaluation 1975 Colon Cancer Screening (Colonoscopy) 2002 Breast Cancer Screening (Mammogram) 2007 Shingrix-Zoster Vaccine (2 of 2) 04/29/2019 03/04/2019 DTap / Tdap / Td (2 - Td or Tdap) 06/24/2019 06/24/2009 Fall Risk Assessment 2022 Osteoporosis Screening (DEXA Scan) 2022 COVID-19 Vaccine ( season) 2024 03/29/2022, 10/06/2021, 02/10/2021, Additional history exists Influenza Vaccine (#1) 2024 3, 07/25/2022, 07/19/2021, Additional history exists RSV Adult > 60+ Yrs or (1 - 1-dose 75+ series) 01/29/2032 Pneumococcal Vaccine Completed 06/22/2023, 01/21/20 Hepatitis B Vaccines Aged Out No long er eligible based on patient's age to complete this topic RSV Ped < 20 months Aged Out No longe r eligible based on patient's age to complete this topic Care Teams Gm Mobile Relationship Specialty Start Date End Date Bhakti Escalona MD [address] [place] [address] PCP - General Internal Medicine 05/13/24
--- OUTSIDE RECORDS SUMMARY | 2024-11-26 13:49 | XMS_ITS | Encounter Summary ---
Author Organization [facility] Address [address] [place] [address] Care Team Providers Care Office Technologist Name Role Phone Michael Garland MD Primary Care Provider [phone] Gab Kerns PA-C Primary Care Provider [phone] Stephani [place] MD Primary Care Provider Louann Ramirez MD Primary Care Provider Bhakti Arciniega MD Primary Care Prov ider Reason for Referral * Non ROSLYN (Routine) - Authorized/Booked Specialty Diagnoses / Procedures Referred By Contac t Referred To Contact Dermatology Diagnoses Skin lesion Procedures REFERRAL TO DERMATOLOGY Michael Garland MD [address] [place] [address] Jorge A Huerta MD [address] [place] [address] [place] [id number] Referral ID Status Reason Start Date Expiration Date V isits Requested Visits Authorized [id number] Authorized/B ooked 11/15/2017 11/15/2018 12 12 Reason for Visit * Reason Onset Date Comments City Library Director Feedback 11/14/2017 Encounter Details Date Type Department Care Team Description 11/14/2017 Telephone Adult [facility] [address] [place] [address] Michael Garland MD [address] [place] [address] City Library Director Feedback Social History Tobacco Use Types Packs/Day [...] encounter Miscellaneous Notes * Telephone Encounter - Lindsey Mejía - 11/14/2017 11:38 AM EST Please review this patients new referral request. The referral has been pended. Please complete thefollowing: If approved> sign order If denied>please give instructions and route to your practice nursing pool. Practice nurse should inform referrals and the patient if denied. * Telephone Encounter - Tona Fisher - 11/14/2017 11:27 AM EST What insurance does the patient have today? [employer] Plan Effective 07/08/09: BS will not retro referral requests over 90 days. If request is for this please instruct patient to call the 800# on their insurance card to appeal. Do not submit a request. Referrals cannot be processed if the insurance is not accurate. If the insurance listed above in red is NO BILLING INFORMATION FOUND FOR THIS ENCOUTNER The patients correct insurance must be obtained and registered in [facility] or their referral can not be processed. Is this a retro request? NO. If yes for what date of service do you need the retro referral? N/A Who is calling to request this referral? The Patient If the caller is not the patient, what is their name? N/A Ask the patient WHO referred them to this specialty: Patient spoke to Dr. Garland and was told they would order a referral to this specialty FIRST and LAST NAME of SPECIALIST PATIENT is seeing: Alexis Villareal What specialty is this? Dermotalogy DIAGNOSIS Patient is being seen for (Not a body part or a procedure): Skin issue Have you seen this SPECIALIST for this PROBLEM/DX before?NO If YES, when: Have you checked REVIEW or the APPT DESK to see if this referral has already been done or has visits left? YES Is this visit:Initial Visit Address of Specialist:[address] [place] [address] Phone # of Specialist:[phone] Fax #: (if applicable): Does patient have an appointment scheduled?: NO Date of appointment- (including a retro-request): Is this appointment related to: Not MVA, WC or Surgery related documented in this encounter Plan of Treatment Not on file documented as of this encounter Visit Diagnoses Diagnosis Skin lesion- Primary Unspecified disorder of skin and subcutaneous tissue documented in this encounter Care Teams Office Technologist Relationship Specialty Start Date End Date Michael Garland MD [address] [place] [address] PCP - General 12/26/09 02/27/21 Gab Kerns PA-C [address] [place] [address] PCP - General Internal Medicine 02/28/21 08/01/21 Stephani [place] MD [address] [place] [address] PCP - General Internal Medicine 08/02/21 09/06/21 Louann Ching MD [address] [place] [address] PCP - General Internal Medicine 09/07/21 04/05/22 Bhakti Escalona MD [address] [place] [address] PCP - General Internal Medicine 04/06/22 documented as of this encounter
--- OUTSIDE RECORDS SUMMARY | 2024-11-26 13:49 | XMS_ITS | Patient Health Record ---
Author Organization [facility] Address [address] [facility] [address] [place] [address] Care Team Providers Care Wire Stitcher Operator Name Role Phone Bhakti Garner Primary Care Provider JDE Ortiz Unavailable [phone] Allergies Allergen (clinical drug ingredient) Drug/Non Drug Allergy documented on EMR Reaction Allergy Type Onset Date Status Substance with sulfonamide structure and antibacterial mechanism of action (substance) sulfa drugs (uncoded) Unknown Allergy Active VoSoL HC Unknown Drug Allergy Active lisinopril Lisinopril Unknown Drug Allergy Activ e Mold Unknown Allergy Active Reason For Referral Reason Diabetic check Diagnosis 1 Type 2 diabetes dallas itus without complication, without long-term current use of insulin (E11.9) Referring Provider First Name Bhakti Cooley Referring Provider Last Name Pascual Referred Organization [facility] Referred Provider JED SEAY Referred Address [address] [facility] [address],[place], [place],[address], Referred Provider Specialty Podiatry Referral Priority Routine Medications Medication SIG (Take, Route, Frequency, Duration) Notes Start Date End Date Status Turmeric 500 MG as directed Orally Not-Taking PROzac 20 MG 1 capsule Orally Onc e a day Active Losartan Potassium 50 MG 1 tablet Orally Once a day Not-Taking Simvastatin 40 MG 1 tablet in the even ing Orally Once a day Active Omeprazole 20 MG 1 capsule 30 minutes before morning meal Orally Once a day Active Nortriptyline HCl 25 MG 1 capsule Orally Once a day Active ALPRAZolam 0.5 MG 1 tablet Orally Once a day Active Calcium Citrate + D Active Reclast 5 MG/100ML as directed Intravenous Not-Taking Estradiol 0.1 MG/GM as directed Vaginal Not-Taking Claritin 10 MG 1 tablet Orally Once a day Not-Taking Problems Problem Type SNOMED Code ICD Code Onset Dates Problem Status W/U Status Risk Notes Problem [id number] Type 2 diabetes mellitus without complication, without long-term current use of insulin (E11.9) Active confirmed Problem [id number] Type 2 diabetes mellitus with hyperglycemia, without long-term current use of insulin (E11.65) Active confirmed Problem Postmenopausal osteoporosis (404729286) Postmenopausal osteoporosis (M81.0) Active confirmed Vital Signs Heart Rate 80 /min 07/18/2024 Temperature 96.6 degrees Fahrenheit 07/18/2024 Respiratory Rate 12 /min 07/18/2024 Height 5ft 3in in 10/29/2024 Weight 162.6 lbs 10/29/2024 BMI 28.8 kg/m2 10/29/2024 Encounters Encounter Location Date Provider Diagnosis [facility] [address] [address] 01/14/2024 JED SEAY Type 2 diabetes mellitus with hyperglycemia, without long-term current use of insulin E11.65 ; Hallux limitus, right M20.5X1 ; Foot callus L84 and Postmenopausal osteoporosis M81.0 [facility] [address] [address] 04/16/2024 JED SEAY Type 2 diabetes mellitus with hyperglycemia, without long-term current use of insulin E11.65 ; Hallux limitus, right M20.5X1 and Postmenopausal osteoporosis M81.0 [facility] [address] [address] 07/18/2024 JED SEAY Type 2 diabetes mellitus with hyperglycemia, without long-term current use of insulin E11.65 ; Hallux limitus, right M20.5X1 and Postmenopausal osteoporosis M81.0 [facility] [address] [address] 10/29/2024 JED SEAY Type 2 diabetes mellitus with hyperglycemia, without long-term current use of insulin E11.65 ; Hallux limitus, right M20.5X1 and Postmenopausal osteoporosis M81.0 [facility] [address] [address] 12/07/2023 JED SEAY Assessments Encounter Date Diagnosis (ICD Code) Assessment Notes Treatment Notes Treatment Clinical Notes Section Notes 01/14/2024 Type 2 diabetes mellitus with hyperglycemia, without long-term current use of insulin (ICD-10 - E11.65) This is an outpatient visit for evaluation and management of a new patient, which required appropriate review of pertinent medical history, review of any previous imaging, review of all previous records, and examination and decision-making. Time was 45 minutes spent in review of all these facets including face to face discussion with the patient regarding my findings and in discussion of a current and future treatment plan. Discussed with patient regarding proper glucose control, exercise, and diet. Explained to patient proper shoe gear, and importance of daily foot checks. I reviewed neuropathy and why it occurs in diabetics. I educated the patient on proper blood sugar control and the importance of an HgBA1c of less than 7.0%. I reviewed the signs and symptoms of neuropathy with the patient. 01/14/2024 Hallux limitus, right (ICD-10 - M20.5X1) 04/16/2024 Type 2 diabetes mellitus with hyperglycemia, without [...] symptoms of neuropathy with the patient. 07/18/2024 Type 2 diabetes mellitus with hyperglycemia, [...] and symptoms of neuropathy with the patient. 10/29/2024 Type 2 diabetes mellitus with hyperglycemia, without [...] and symptoms of neuropathy with the patient. 10/29/2024 Hallux limitus, right (ICD-10 - M20.5X1) The foot callus is resolved. 07/18/2024 Hallux limitus, right (ICD-10 - M20.5X1) The foot callus is resolved. 04/16/2024 Hallux limitus, right (ICD-10 - M20.5X1) The foot callus is resolved. 01/14/2024 Foot callus (ICD-10 - L84) We discussed the diffuse callus on the right foot. I explained this is due to biomechanics, shoe gear, and a thinning fat pad. I reviewed using a pumice stone and keratolytic creams to help get rid of the current callus. I reviewed changing shoes and making sure she has support to avoid recurrence. She is in agreement with this plan. 04/16/2024 Postmenopausal osteoporosis (ICD-10 - M81.0) I discussed her osteoporosis diagnosis. We discussed she is a higher risk of developing stress fractures in the feet. I discussed the signs and symptoms of a stress fracture. We discussed this does not have to be activity dependent. I recommended she call the office with any new onset pain or swelling in the feet. 01/14/2024 Postmenopausal osteoporosis (ICD-10 - M81.0) I discussed her osteoporosis diagnosis. We discussed she is a higher risk of developing stress fractures in the feet. I discussed the signs and symptoms of a stress fracture. We discussed this does not have to be activity dependent. I recommended she call the office with any new onset pain or swelling in the feet. 07/18/2024 Postmenopausal osteoporosis (ICD-10 - M81.0) I discussed her osteoporosis diagnosis. We discussed she is a higher risk of developing stress fractures in the feet. I discussed the signs and symptoms of a stress fracture. We discussed this does not have to be activity dependent. I recommended she call the office with any new onset pain or swelling in the feet. 10/29/2024 Postmenopausal osteoporosis (ICD-10 - M81.0) I discussed her osteoporosis diagnosis. We discussed she is a higher risk of developing stress fractures in the feet. I discussed the signs and symptoms of a stress fracture. We discussed this does not have to be activity dependent. I recommended she call the office with any new onset pain or swelling in the feet. Plan Of Treatment Next Appt Details Provider Name:JED SEAY, 2025 11:30:00 AM, [address] [facility], [facility] [address], [place], [address], Insurance Providers Payer Name Payer Address Payer Phone Subscriber Number Group Number Insured Name Patient Relationship to Insured Coverage Start Date Coverage End Date [facility] [address] [place] [address] [phone] [id number] Nicole Mccracken Self - patient is the insured Medical (General) History Medical History History ICD Code palpitations type II diabetes osteopenia insomnia adjustment disorder with depressed mood anxiety hypertension impaired fasting glucose benign neoplasm of colon ADHD gastroesophageal reflux disease (GERD) history of squamous cell carcinoma of sk in sleep apnea hypercholesterolemia depression allergic rhinitis peptic ulcer disease irritable bowel syndrome + COVID 2020 COVID vaccinated X 3 ([employer]) Surgical History Surgery Date(Month/Year) tonsillectomy and adenoidectomy eye surgery plastic surgery-ears 4 D&C wisdom teeth extraction hysterectomy Hospitalization History Reason Date(Month/Year) hysterectomy plastic surgery- ears eye surgery tonsillectomy and adenoidectomy
--- OUTSIDE RECORDS SUMMARY | 2024-11-26 13:49 | XMS_ITS | Encounter Summary ---
Author Organization [facility] Address [address] [place] [address] Care Team Providers Care Smoking Pipe Mounter Name Role Phone Stephani Sun MD Primary Care Provider Louann Ramirez MD Primary Care Provider Bhakti Arciniega MD Primary Care Prov ider Reason for Visit * Reason Onset Date Comments Warehouse Shipping Supervisor Feedback 08/29/2021 Dr. Stovall Encounter Details Date Type Department Care Team Description 08/29/2021 [place] [facility] [address] [address] Stephani Sun MD Warehouse Shipping Supervisor Feedback (Dr. Stovall ) Social History Tobacco Use Types Packs/Day Years [...] Exposure Response Date Recorded In the last month, have you been in contact with someone who was confirmed or suspected to have Coronavirus / COVID-19? No / Unsure 08/16/2021 12:43 PM EST documented as of this encounter Miscellaneous Notes * Telephone Encounter - Anne Mojica M.A. - 09/07/2021 1:55 PM EST Message left for patient to return my call. [phone] The earliest appt with Dr. Esqueda would be a telehealth appt on 09/14/21 * Telephone Encounter - Louann Ching - 09/07/2021 11:38 AM EST Never seen this pt. She will need visit to discuss referal * Telephone Encounter - Nayana Rollins - 09/07/2021 10:10 AM EST Please review this patients new referral request. The referral has been pended. Please complete thefollowing: If approved> sign order If denied>please give instructions and route to your practice nursing pool. Practice nurse should inform referrals and the patient if denied. * Telephone Encounter - Nora Rojas - 09/07/2021 9:52 AM EST Pcp udated. * Telephone Encounter - Nayana Rollins - 08/30/2021 8:51 AM EST Patient needs to call and select a new PCP, patient has Dr. Sun as their PCP. * Telephone Encounter - Nora Rojas - 08/29/2021 3:12 PM EST What insurance does the patient have today? Payor: [employer] / Plan: HMO $21/$31 IRVING [id number] / Product Type: HMO [id number] Effective 07/08/09: BCBS will not retro referral requests over 90 [...] insurance must be obtained and registered in [facility] or their referral can not be processed. Is this a retro request? NO. If yes for what date of service do you need the retro referral? N/A Who is calling to request this referral? Pt If the caller is not the patient, what is their name? N/A Ask the patient WHO referred them to this specialty: Patient self referred FIRST and LAST NAME of SPECIALIST PATIENT is seeing: Wilman Alcantara NPI- [id number] What specialty is this? ENT DIAGNOSIS Patient is being seen for (Not a body part or a procedure): Allergy Have you seen this SPECIALIST for this PROBLEM/DX before?YES If YES, when: Have you checked REVIEW or the APPT DESK to see if this referral has already been done or has visits left? NO Is this visit:Follow Up Address of Specialist: [address] [place] [address] Phone # of Specialist:[phone] Fax #: (if applicable):[phone] Does patient have an appointment scheduled?: NO Date of appointment- (including a retro-request): TBD Is this appointment related to: Not MVA, WC or Surgery related documented in this encounter Plan of Treatment Not on file documented as of this encounter Visit Diagnoses Not on filedocumented in this encounter Care Teams Smoking Pipe Mounter Relationship Specialty Start Date End Date Stephani Sun MD PCP - General Internal Medicine 08/02/21 09/06/21 Louann Ching MD PCP - General Internal Medicine 09/07/21 04/05/22 Bhakti Escalona MD [address] [place] [address] PCP - General Internal Medicine 04/06/22 documented as of this encounter
--- OUTSIDE RECORDS SUMMARY | 2024-11-26 13:49 | XMS_ITS | Encounter Summary ---
Author Organization [facility] Address [address] [place] [address] Care Team Providers Care Landscape Crew Leader Name Role Phone Louann Ching MD Primary Care Provider Bhakti Arciniega MD Primary Care Prov ider Encounter Details Date Type Department Care Team Description 12/07/2021 Pt. Non Urgent Medical Question Adult Medicine [address] [address] Gab Kerns PA-C [address] [place] [address] Social History Tobacco Use Types Packs/Day Years [...] have Coronavirus / COVID-19? No / Unsure 11/23/2021 10:08 AM EST documented as of this encounter Plan of Treatment Not on file documented as of this encounter Visit Diagnoses Not on filedocumented in this encounter Care Teams Landscape Crew Leader Relationship Specialty Start Date End Date Louann Ching MD PCP - General Internal Medicine 09/07/21 04/05/22 Pascual Williamson, Bhakti Cooley MD [address] [place] [address] PCP - General Internal Medicine 04/06/22 documented as of this encounter
--- OUTSIDE RECORDS SUMMARY | 2024-11-26 13:49 | XMS_ITS | Encounter Summary ---
Author Organization [facility] Address [address] [place] [address] Care Team Providers Care Knitting Demonstrator Name Role Phone Bhakti Escalona MD Primary Care Prov ider Reason for Visit * Reason Onset Date Comments injection 12/27/2023 Encounter Details Date Type Department Care Team Description 12/27/2023 Telephone Endocrinology - [address] [address] Joyce Davila PA-C [address] [place] [address] injection Social History Tobacco Use Types Packs/Day Years [...] encounter Miscellaneous Notes * Telephone Encounter - Patience Guerra - 02/20/2024 12:57 PM EDT Faxed script, demographics sheet, referral information, office visit note and lab results to Marcela Huitron [phone]. * Telephone Encounter - Elise Myers - 02/19/2024 4:29 PM EDT You may print this referral (specialty care certification) in a print friendly version or submit another referral (specialty care certification) request. Referral received. Provider is outside of the [facility] limited network. Additional member cost share will apply. Referral (Specialty Care Certification) ID [id number] Referring Physician Name/ID (Requester Name/ID) [id number] BHAKTI ESCALONA MD [address] Date of 1955 Referred to Provider ID (Service Provider ID) [id number] [facility] OUT PT Date of Service 02/19/2024 Diagnosis Code M85.80 Number of Visits 3 Service Type Requested Consultation/Diagnostic/Medical Care - Consultative opinion and necessary diagnostic studies and treatment Request will be sent to [facility] and they will contact the patient to schedule appointment * Telephone Encounter - Patience Guerra - 01/15/2024 9:03 AM EDT Called [facility] and spoke with rep named Margy Man. She informed me that there is no prior-auth required for either CPT code 83424 (infusion) or J3489 (Reclast). This plan requires an insurance referral. Ref# [id number] Elise Hardy To process insurance referral. * Telephone Encounter - Joyce Davila PA-C - 01/11/2024 2:46 PM EDT Script is printed again. * Telephone Encounter - Joyce Davila PA-C - 01/01/2024 2:59 PM EDT Hayden, can you please follow-up on this? Reclast was ordered more than 4 months ago. Patient has not heard anything regarding an appointment. Labs are already ordered. * Telephone Encounter - Chelita joy Kauffman - 12/27/2023 10:54 AM EDT Patient saw Joyce Davila on 10/30/23 and discussed getting Reclast. She is calling to follow up on how to get this scheduled please. documented in this encounter Plan of Treatment Not on file documented as of this encounter Results * CHG 25 HYDROXY INCLUDES FRACTIONS IF PERFORMED (02/05/2024 11:20 AM EDT) Pathologist [facility] VITAMIN D, 25-HYDROXY 41 30 - 80 ng/mL 02/05/2024 3:10 PM EDT [facility] 02/05/2024 11:2 0 AM EDT 02/05/2024 11:21 AM EDT Narrative [facility] - 02/05/2024 3:10 PM EDT Release to patient->Immediate Joyce Davila PA-C LAB [facility] * (ABNORMAL) CHG BASIC METABOLIC PANEL CALCIUM TOTAL (02/05/2024 11:20 AM EDT) GLOMERULAR FILTRATION RATE 66 >60 02/05/2024 3:45 PM EDT [facility] Comment: This eGFR result was calculated using the CKD-EPI 2020 Creatinine Equation GLUCOSE 127(H) 70 - 100 mg/dL 02/05/2024 3:45 PM EDT [facility] Comment:Reference range appl icable to fasting specimens only Blood Urea Nitrogen 15 5 - 25 mg/dL 02/05/2024 3:45 PM EDT [facility] CREAT 0.95 0.5 - 1.1 mg/dL 02/05/2024 3:45 PM EDT [facility] NA 139 135 - 145 mEq/L 02/05/2024 3:45 PM EDT [facility] K 4.2 3.5 - 5.5 mmol/L 02/05/2024 3:45 PM EDT [facility] CL 105 96 - 110 mmol/L 02/05/2024 3:45 PM EDT [facility] CARBON DIOXIDE (CO2) 23 21 - 32 mmol/L 02/05/2024 3:45 PM EDT [facility] ANION GAP 11 3 - 11 02/05/2024 3:45 PM EDT [facility] CALCIUM 9.3 8.5 - 10.5 mg/dL 02/05/2024 3:45 PM EDT [facility] 02/05/2024 11:2 0 AM EDT 02/05/2024 11:21 AM EDT Narrative [facility] - 02/05/2024 3:45 PM EDT Release to patient->Immediate Joyce Davila PA-C LAB [facility] documented in this encounter Visit Diagnoses Diagnosis Osteopenia, unspecified location- Primary Type 2 diabetes mellitus without complication, without long-term current use of insulin (HCC) Osteopenia, unspecified location Pure hypercholesterolemia Depression Depressive disorder, not elsewhere classified Other irritable bowel syndrome Gastroesophageal reflux disease without esophagitis Esophageal reflux Attention deficit hyperactivity disorder (ADHD), predominantly inattentive type Primary hypertension Unspecified essential hypertension Generalized anxiety disorder documented in this encounter Care Teams Knitting Demonstrator Relationship Specialty Start Date End Date Bhakti Escalona MD [address] [place] [address] PCP - General Internal Medicine 04/06/22 documented as of this encounter
--- OUTSIDE RECORDS SUMMARY | 2024-11-26 13:49 | XMS_ITS | Encounter Summary ---
Author Organization [facility] Address [address] [place] [address] Care Team Providers Care Language Arts Teacher Name Role Phone Michael Garland MD Primary Care Provider [phone] Gab Kerns PA-C Primary Care Provider [phone] Stephani Sun MD Primary Care Provider Louann Ramirez MD Primary Care Provider Bhakti Arciniega MD Primary Care Prov ider Encounter Details Date Type Department Care Team Description 10/28/2019 Logistics Analyst Report Medical Records [address] [place] [address] [facility] Social History Tobacco Use Types Packs/Day Years [...] on filedocumented in this encounter Care Teams Language Arts Teacher Relationship Specialty Start Date End Date Michael Garland MD [address] [place], [place] [phone] PCP - General 12/26/09 02/27/21 Gab Kerns PA-C [address] [place] [address] PCP - General Internal Medicine 02/28/21 08/01/21 Stephani Sun MD [address] [place] [address] PCP - General Internal Medicine 08/02/21 09/06/21 Louann Ching MD [address] [place] [address] PCP - General Internal Medicine 09/07/21 04/05/22 Bhakti Escalona MD [address] [place] [address] PCP - General Internal Medicine 04/06/22 documented as of this encounter
--- OUTSIDE RECORDS SUMMARY | 2024-11-26 13:49 | XMS_ITS | Encounter Summary ---
Author Organization [facility] Address [address] [place] [address] Care Team Providers Care Cord Maker Name Role Phone Michael Garland MD Primary Care Provider [phone] Gab Kerns PA-C Primary Care Provider + [phone] Stephani Sun MD Primary Care Provider Louann Ramirez MD Primary Care Provider Bhakti Arciniega MD Primary Care Prov ider Encounter Details Date Type Department Care Team Description 07/19/2016 Pipe Recovery Specialist Report Medical Records [address] [place] [address] Jacquie Stovall Social History Tobacco Use Types [...] on filedocumented in this encounter Care Teams Cord Maker Relationship Specialty Start Date End Date Michael Garland MD [address] [place], [place] [id number] PCP - General 12/26/09 02/27/21 Gab Kerns PA-C [address] [place] [address] PCP - General Internal Medicine 02/28/21 08/01/21 Stephani Sun MD [address] [place] [address] PCP - General Internal Medicine 08/02/21 09/06/21 Louann Ching MD [address] [place] [address] PCP - General Internal Medicine 09/07/21 04/05/22 Bhakti Escalona MD [address] [place] [address] PCP - General Internal Medicine 04/06/22 documented as of this encounter
--- OUTSIDE RECORDS SUMMARY | 2024-11-26 13:49 | XMS_ITS | Encounter Summary ---
Author Organization [facility] Address [address] [place] [address] Care Team Providers Care Roving Court Reporter Name Role Phone Michael Garland MD Primary Care Provider [phone] Gab Kerns PA-C Primary Care Provider + [phone] Stephani Sun MD Primary Care Provider Louann Ramirez MD Primary Care Provider Bhakti Arciniega MD Primary Care Prov ider Encounter Details Date Type Department Care Team Description 07/21/2019 Paint Preparer Report Medical Records [address] [place] [address] Jacquie Stovall Social History Tobacco Use Types [...] on filedocumented in this encounter Care Teams Roving Court Reporter Relationship Specialty Start Date End Date Michael Garland MD [address] [place], [place] [phone] PCP - General 12/26/09 02/27/21 Gab Kerns PA-C [address] [place] [address] PCP - General Internal Medicine 02/28/21 08/01/21 Stephani Sun MD [address] [place] [address] PCP - General Internal Medicine 08/02/21 09/06/21 Louann Ching MD [address] [place] [address] PCP - General Internal Medicine 09/07/21 04/05/22 Bhakti Escalona MD [address] [place] [address] PCP - General Internal Medicine 04/06/22 documented as of this encounter
--- OUTSIDE RECORDS SUMMARY | 2024-11-26 13:49 | XMS_ITS ---
Author Organization [email or web address] Address [address] [facility] [address] [facility] [address] [place] [address] Care Team Providers Care Thaw Shed Heater Tender Name Role Phone KAREN CAICEDO MD, CLARITZA Primary Care Provider Kristin Kurtz [phone] Allergies Allergen (clinical drug ingredient) Drug/Non Drug Allergy documented on EMR Reaction Allergy Type Onset Date Status Substance with sulfonamide structure and antibacterial mechanism of action (substance) Sulfa Antibiotics Hives Drug Allergy Active REASON FOR VISIT Annual (YELLOW FORM DONE) Encounters Encounter Location Date Provider Diagnosis [email or web address] [address] [facility] [address] [place] [address] 05/26/2024 Kristin Carranza Plan Of Treatment Next Appt Details Provider Name:Kristin cedillo, 12/25/2024 10:20:00 AM, [address] [facility], [address], [place], [address], Progress Notes * CORWIN HARRISONOB: [birth year] (69 yo F)Acc No.[id number]:05/26/2024 PROGRESS NOTES Patient:?KRANTHI HARRISON Appointment Provider:?Kristin cedillo M.D. :1955???Age:69 Y???Sex:Female D ate:05/26/2024 Address:[address], , [id number] Pcp:CLARITZA CAICEDO MD Subjective: * Chief Complaints: * ???1. Annual (YELLOW FORM DO NE). * Medical History:?Mastodynia, Major depressive disorder, single episode, unspecified, Menopausal [...] vulva, Mammographic heterogeneous density, bilateral breasts. * Slash Trimmer History:?/ Para?0/0.?Sexual activity?currently sexually active.?Last Pap Smear:?03/03/21 NIL, NEG HPV, 03/14/17 NEG HRHPV, 01/07/14.?Mammogram:?01/22/24 50-75% density, 01/19/23 Unilat Right, 12/29/22 50-75% density, 12/28/21 50-75% density, 12/10/20 50-75% density, 09/29/19 50-75% density, 07/31/18 Unilat Left 50-75% density, 05/30/17 50-75% density, 05/24/16 50-75% density, 02/10/15, 50-75% density.?LMP and menses?Hyst 09/19/222002.? Control:?Menopause.?Menopause: ?Began at age: ?48 ???Colonoscopy?2016.?Bone Density:?11/03/22, 09/11/19, 05/30/17, 2009.?TELECOMMUNICATIONS LINESWORKER HISTORY MISC.?03/22/17 María Elena Score Lifetime Risk = 7.4%.? * OB History:?Total pregnancies?0.? * Allergies:?Sulfa Antibiotics : Hives - Allergy. Objective: * Vitals:? Assessment: Plan: * Treatment: * Images: Billing Information: * Visit Code:? * Procedure Codes:? * Electronic signature of Becca Carranza MD on 11/26/2024 at 01:48 PM EST Sign off status: Pending * Appointment Provider:?Kristin Carranza M.D. Date:?05/26/2024 Generated for Dennis zambrano/Cesar/Pepito on:?11/26/2024 01:48 PM EST
--- OUTSIDE RECORDS SUMMARY | 2024-11-26 13:49 | XMS_ITS | Encounter Summary ---
Author Organization [facility] Address [address] [place] [address] Care Team Providers Care Clinical Trial Specialist Name Role Phone Bhakti Escalona MD Primary Care Prov ider Reason for Visit * Reason Onset Date Comments APPOINTMENT 05/06/2024 Encounter Details Date Type Department Care Team Description 05/06/2024 Telephone Pulmonology - [place] [address] [facility] [address] [place] [phone] Radha Portillo MD [address] [place] [phone] APPOINTMENT Social History Tobacco Use Types Packs/Day Years [...] encounter Miscellaneous Notes * Telephone Encounter - Domitila Lai - 05/06/2024 4:04 PM EDT Follow up due, lvm to schedule. documented in this encounter Plan of Treatment Not on file documented as of this encounter Visit Diagnoses Not on filedocumented in this encounter Care Teams Clinical Trial Specialist Relationship Specialty Start Date End Date Bhakti Escalona MD [address] [place] [id number] PCP - General Internal Medicine 04/06/22 documented as of this encounter
--- OUTSIDE RECORDS SUMMARY | 2024-11-26 13:49 | XMS_ITS | Encounter Summary ---
Author Organization [facility] Address [address] [place] [address] Care Team Providers Care Gauge And Weigh Machine Adjuster Name Role Phone Michael Garland MD Primary Care Provider [phone] Gab Kerns PA-C Primary Care Provider + [phone] Stephani Sun MD Primary Care Provider Louann Ramirez MD Primary Care Provider Bhakti Arciniega MD Primary Care Prov ider Encounter Details Date Type Department Care Team Description 11/25/2020 Orders Only Pulmonology - [place] [address] [facility] [address] [place] [address] Radha Portillo MD [address] [place] [address] LILIYA (obstructive sleep apnea) Social History Tobacco Use Types Packs/Day Years [...] on file documented as of this encounter Procedures Procedure Name Priority Date/Time Associated Diagnosis Comments TREATMENT SLEEP STUDY-16 CHANNEL Routine 10/26/2020 LILIYA (obstructive sleep apnea) documented in this encounter Results * TREATMENT SLEEP STUDY-16 CHANNEL (10/26/2020) Radha Portillo MD PULMONOLOGY documented in this encounter Visit Diagnoses Diagnosis LILIYA (obstructive sleep apnea) Obstructive sleep apnea (adult) (pediatric) documented in this encounter Care Teams Gauge And Weigh Machine Adjuster Relationship Specialty Start Date End Date Michael Garland MD [address] [place], [place] [phone] PCP - General 12/26/09 02/27/21 Gab Kerns PA-C [address] [place] [address] PCP - General Internal Medicine 02/28/21 08/01/21 Stephani Sun MD [address] [place], [place] [phone] PCP - General Internal Medicine 08/02/21 09/06/21 Louann Ching MD [address] [place] [address] PCP - General Internal Medicine 09/07/21 04/05/22 Bhakti Escalona MD [address] [place] [address] PCP - General Internal Medicine 04/06/22 documented as of this encounter
--- OUTSIDE RECORDS SUMMARY | 2024-11-26 13:49 | XMS_ITS | Encounter Summary ---
Author Organization [facility] Address [address] [place] [address] Care Team Providers Care Judge Clerk Name Role Phone Bhakti Escalona MD Primary Care Prov ider Encounter Details Date Type Department Care Team Description 06/19/2022 Pt. Non Urgent Medical Question Adult Medicine [address] [address] Gab Kerns PA-C [address] [place] [phone] Social History Tobacco Use Types Packs/Day Years [...] suspected to have Coronavirus/COVID-19? No / Unsure 06/19/2022 2:30 PM EDT documented as of this encounter Progress Notes * Damaris Kimbrough M.A. - 06/19/2022 1:32 PM EDT Please see Mychart msg Referral was placed on 04/21/2022, please update on status Thank you documented in this encounter Miscellaneous Notes * Telephone Encounter - Damaris Kimbrough M.A. - 06/19/2022 1:32 PM EDTFrom: Nicole Mccracken To: Miguel A Kerns Sent: 06/19/2022 11:55 AM EDT Subject: Referral Raffaele De Guzman I need a referral for dr aldana [address] [place] [phone] Tel:[phone] Research Management Associate for my sleep apnea my appointment is today at 1:30. Thank you documented in this encounter Plan of Treatment Not on file documented as of this encounter Visit Diagnoses Not on filedocumented in this encounter Care Teams Judge Clerk Relationship Specialty Start Date End Date Bhakti Escalona MD [address] [place] [address] PCP - General Internal Medicine 04/06/22 documented as of this encounter
--- OUTSIDE RECORDS SUMMARY | 2024-11-26 13:49 | XMS_ITS | Encounter Summary ---
Author Organization [facility] Address [address] [place] [address] Care Team Providers Care Tube Repairer Name Role Phone Bhakti Escalona MD Primary Care Prov ider Reason for Visit * Reason Onset Date Comments [facility] [employer] [facility] Director Feedback 04/06/2022 Dr Alvarado [facility] Encounter Details Date Type Department Care Team Description 04/06/2022 Telephone Adult Medicine [address] [phone] Louann Ching MD [employer] [facility] Director Feedback (Dr Christiano Hines [facility] ) Social History Tobacco Use Types Packs/Day [...] encounter Miscellaneous Notes * Telephone Encounter - John Cuellar - 06/26/2022 2:05 PM EDT No insurance referral required per patient's insurance. Dr Williamson faxed order and notes on one of their patients, so they could be seen with our providers. Patient has been referred to OB?DENTAL FLOSS PACKER DX: Patient is being seen for: D & C for uterine bleeding INS: [employer] Please review this patients new referral request. The referral has been pended. Please complete thefollowing: If approved> sign order If denied>please give instructions and route to your practice nursing pool. Practice nurse should inform referrals and the patient if denied. Order is pended * Telephone Encounter - Serena Canela - 05/04/2022 11:49 AM EDT PLEASE BACK DATE TO 03/13/2022 03/20/2022 AND 04/04/2022. * Telephone Encounter - Elizabeth Benson - 04/06/2022 11:01 AM EDT What insurance does the patient have today? Payor: [employer] / Plan: POS $0 [place] [id number] / Product Type: POS [id number] Effective 07/08/09: BCBS will not retro referral [...] insurance must be obtained and registered in [facility] or their referral can not be processed. Is this a retro request? NO. If yes for what date of service do you need the retro referral? N/A Who is calling to request this referral? The patient If the caller is not the patient, what is their name? N/A Ask the patient WHO referred them to this specialty: Patient self referred FIRST and LAST NAME of SPECIALIST PATIENT is seeing: Dr Christiano Hines [facility] What specialty is this? OPTIC FIBRE DRAWER DIAGNOSIS Patient is being seen for (Not a body part or a procedure): D & C for uterine bleeding Have you seen this SPECIALIST for this PROBLEM/DX before?YES If YES, when: Have you checked REVIEW or the APPT DESK to see if this referral has already been done or has visits left? NO Is this visit:Follow Up Address of Specialist: [address] [facility] [facility] [address] [facility] Phone # of Specialist: [phone] Fax #: (if applicable): [phone] Does patient have an appointment scheduled?: YES Date of appointment- (including a retro-request): 04/07/22, 04/19/22, 05/03/22 Is this appointment related to: Surgery documented in this encounter Plan of Treatment Not on file documented as of this encounter Visit Diagnoses Not on filedocumented in this encounter Care Teams Tube Repairer Relationship Specialty Start Date End Date Bhakti Escalona MD [address] [place] [phone] PCP - General Internal Medicine 04/06/22 documented as of this encounter
--- OUTSIDE RECORDS SUMMARY | 2024-11-26 13:49 | XMS_ITS ---
Author Organization [facility] Address [address] [facility] [address] [place] [address] Care Team Providers Care Plant Senior Manager Name Role Phone Bhakti Garner Primary Care Provider TIARA Ortiz [phone] REASON FOR VISIT 3 month f/u Encounters Encounter Location Date Provider Diagnosis [facility] [address] [facility] [address] [place] [address] 10/10/2024 TIARA SEAY Plan Of Treatment Next Appt Details Provider Name:TIARA SEAY, 2025 11:30:00 AM, [address] [facility] [facility] [address], [place], [address], Progress Notes * Marichuy HARRISONOB: [birth year] (69 yo F)Acc No.[id number]:10/10/2024 Progress Note Patient:?Nicole HARRISON Provider:?Tiara Seay DPM :1955???Age:69 Y???Sex:Female D ate:10/10/2024 Address[address] [facility] [address], [phone] Pcp:Bhakti Garner Subjective: * Chief Complaints: * ???1. 3 month f/u. * Medical History:? Objective: * Vitals:? Assessment: Plan: * Treatment: * Billing Information: * Visit Code:? * Procedure Codes:? * Electronic signature of BRAIN SEAY D.P.M on 11/26/2024 at 01:49 PM EST Sign off status: Pending * Provider:?Tiara Seay DPM Date:? 10/10/2024 Generated for Dennis zambrano/Cesar/Pepito on:?11/26/2024 01:49 PM EST
--- OUTSIDE RECORDS SUMMARY | 2024-11-26 13:49 | XMS_ITS | Clinical Summary ---
Author Organization [facility] [address] [facility] Address [address] [place] [address] Phone Care Team Providers Care Machine Pan Greaser Name Role Phone Bhakti Hogue MD Primary Care Prov ider Allergies Active Allergy Reactions Criticality Noted Date Comments Hydrocortisone-Acetic Acid Rash Low 08/01/2011 Lisinopril Cough,Unknown Low 01/03/2017 Mold Headache,Other 08/21/2023 Sulfa (Sulfonamide Antibiotics) 04/27/2009 Other Reaction(s): Hives/Urticaria, Rash/Dermatitis Medications simvastatin (ZOCOR) 40 mg tablet Take 1 tablet (40 mg total) by mouth at bedtime. 90 tablet 1 09/01/20 24 Active estradioL (ESTRACE) 0.01 % (0.1 mg/gram) vaginal cream 1 Gram Vaginally Twice a Week for 90 Days 05/07/20 23 Active nortriptyline (PAMELOR) 25 mg capsule Take 1 capsule (25 mg total) by mouth at bedtime. 05/09/20 24 Active omeprazole (PriLOSEC) [address] capsule Take 1 capsule (20 mg total) by mouth 1 (one) time each day. 01/18/20 23 Active blood-glucose meter kit Use to check blood sugar once daily 07/20/20 21 Active FREESTYLE LANCETS MISC Use to check blood sugar once daily 07/20/20 21 Active blood sugar diagnostic (FreeStyle Lite Strips) test strip Use to check blood sugar once daily 07/20/20 21 Active UNABLE TO FIND Take by mouth. Calcium Citrate-Vitami n D (CITRACAL + D OR) Active UNABLE TO FIND CPAP Historical (HISTORICAL CPAP), 9 cm by Nasal route at bedtime. Via full face mask/ [employer] Active losartan (Cozaar) 25 mg tablet Take 1 tablet (25 mg total) by mouth 1 (one) time each day. 90 each 3 09/11/20 24 025 Active ALPRAZolam (XANAX) 0.5 mg tablet Take 1 tablet (0.5 mg total) by mouth 1 (one) time each day if needed for anxiety. Max Daily Amount: 0.5 mg 30 tablet 10/27/19 25 Active FLUoxetine (PROzac) 20 mg capsule TAKE 1 CAPSULE BY MOUTH DAILY 90 capsule 11/20/19 25 Active FLUoxetine (PROzac) 20 mg capsule TAKE 1 CAPSULE BY MOUTH DAILY 90 capsule 09/01/20 24 025 Discontinued Active Problems Problem Noted Date Diagnosed Date Osteoporosis 03/25/2024 Fatty liver 02/26/2024 Palpitations 12/15/2022 Osteopenia 11/03/2022 Type 2 diabetes mellitus wit hout complication, without long-term current use of insulin 07/20/2021 Insomnia 06/04/2019 Adjustment disorder with depressed mood 11/08/19 17 Generalized anxiety disorder 11/08/2016 HTN (hypertension) 03/10/2015 Impaired fasting glucose 04/18/2014 Benign neoplasm of colon 06/19/2012 Overview (08/28/2024): CN + snare 06/19/2012: 12 mm sigmoid colon polyp. Tubular adenoma and hyperplastic. CN 2015: LRA x 2; next CN 2020. Attention deficit hyperactivity disorder (ADHD) 05/10/2011 GERD (gastroesophageal reflux disease) 0 Overview (08/28/2024): Controlled with ppi daily. Sleep apnea 06/24/2009 Overview (08/28/2024): Followed by dr phan sleep study Redone 2016mod sleep apnea Mostly in REM and supine [facility] Polysomnogram PAP treatment study. Date 10/26/2020. Wt 160#; BMI 28; SE 79 % SM 89 %; spent 13 % of the study in REM. On CPAP @ 7-11; AHI < 0.5; and, average oxygen saturation was 93-94%. For the entire study, PLMs ~0. Allergic rhinitis 04/27/2009 Depression 04/27/2009 IBS (irritable bowel syndrome) 04/27/2009 Overview (08/28/2024): Bloating, gas, pain, constipation, onset age 40's, improved after menopause. Peptic ulcer 04/27/2009 Overview (08/28/2024): Controlled with ppi daily. Pure hypercholesterolemia 04/27/2009 Encounters Date Type Department Care Team Description 09/17/2024 Telephone Adult Medicine [address] [phone] Bhakti Mak MD Earache 09/12/2024 Telephone Adult Medicine [address] [phone] Bhakti Mak MD Medication Problem; Blood Pressure Check 09/08/2024 9:00 AM EST Office Visit Adult Medicine [address] [phone] Svetlana Mccarty, PA Primary hypertension (Primary Dx); Pure hypercholesterolemia; Type 2 diabetes mellitus without complication, without long-term current use of insulin ([facility]); Gastroesophageal reflux disease without esophagitis; Obstructive sleep apnea syndrome; Age-related osteoporosis without current pathological fracture; Anxiety and depression; Iron deficiency; Cold intolerance; Tremor from Last 3 Months Immunizations Name Administration Dates Next Due Influenza Quadravalent, MDCK , 0.5ml, preservative free (Flucelvax) 6mo and older 07/19/2021 Influenza Quadravalent, MDCK , 0.5ml, with preservative (Flucelvax) 6mo and older 07/07/2018,06/27/2017 Influenza trivalent, 0.5mL ( Fluad) 65yo and older 06/22/2023,07/25/2022,07/09/2020 Influenza trivalent, 0.5mL, preservative free (Fluarix; FluLaval; Fluzone) ages 6mo and older (Afluria) 3 years and older 07/23/2016,08/08/2015,07/26/2014,08/03,07/09/2012,07/02/2011,07/20/2010 ,06/18/2009 Influenza, Unspecified 07/07/2019 Pfizer (ages 12 & older) Biv alent, COVID-19 07/13/2022 Pneumococcal conjugate 20 va lent (Prevnar 20, PCV 20) 2mo and older 06/22/2023 Pneumococcal polysaccharide 23 valent (Pneumovax 23) 2yo and older 01/20/2022 Td Tetanus diptheria (Tdvax) 7yo and older 08/01/2019 Tdap Tetanus diptheria acell ular pertussis (Boostrix; Adacel) 7yo and older 06/24/2009 Zoster recombinant (Shingrix ) 19yo and older 03/04/2019 Surgical History Surgery Date Site/Laterality Comments TONSILLECTOMY PROCEDURE: HISTORICAL TONSILLECTOMY OTHER SURGICAL HISTORY PROCEDURE: HISTORY OTHER; COMMENT: strabismus surgery OTHER SURGICAL HISTORY PROCEDURE: HISTORICAL SQUAMOUS CELL CA; COMMENT: SCC 09/13 right upper back (well differentiated, invasive) COLONOSCOPY 2001 PROCEDURE: HISTORICAL COLONOSCOPY; COMMENT: negative COLONOSCOPY 06/19/2012 PROCEDURE: HISTORICAL COLONOSCOPY; COMMENT: 12 mm sigmoid colon polyp: Tubular adenoma. COLONOSCOPY 08/07/2016 PROCEDURE: HISTORICAL COLONOSCOPY; COMMENT: 5 mm diminutive polyps ? 2 : tubular adenoma x 1; SSA x 1. OTHER SURGICAL HISTORY 2018 PROCEDURE: HISTORY OTHER; COMMENT: D&C dr simmons uterine polyp removed OTHER SURGICAL HISTORY 04/19/2022 PROCEDURE: HYSTEROSCOPY, SURGICAL/ABLATION; COMMENT: Hysteroscopy and D&C for postmenopausal bleeding dr. simmons OTHER SURGICAL HISTORY 2021 PROCEDURE: HISTORICAL TOTAL HYSTERECTOMY W/O BSO Medical History Medical History Date Comments Pure hypercholesterolemia 04/27/2009 DX:Pur e hypercholesterolemia Depressive disorder, not els ewhere classified 04/27/2009 DX:Depressive disorder, not elsewhere classified Allergic rhinitis 04/27/2009 DX:Allergic rh initis Peptic ulcer 04/27/2009 DX:Peptic ulcer IBS (irritable bowel syndrome) 04/27/2009 D X:IBS (irritable bowel syndrome) Sleep apnea 06/24/2009 DX:Sleep apnea GERD (gastroesophageal reflu x disease) 01/12/2010 DX:GERD (gastroesophageal re flux disease) Benign neoplasm of colon 06/19/2012 DX:Kirby gn neoplasm of colon Impaired fasting glucose 04/18/2014 DX:Impa ired fasting glucose History of squamous cell car cinoma of skin 07/14/2009 DX:History of squamous cell carcinoma of skin; COMMENT: SCC 09/13 right upper back (well differentiated, invasive) Insomnia 06/04/2019 DX:Insomnia Family History Medical History Relation Name Comments Heart attack Father age 65 Stroke Father Diabetes Maternal Grandfather Other cancer Maternal Grandmother Alzheimer's disease Mother Colon polyps Mother Diabetes Mother Other cancer Paternal Grandmother Relation Name Status Comments Aunt [...] drink = 0.6 oz pur e alcohol) Housing Instability Answer Date Recorde d Are you worried that in the next 2 months you may not have stable housing? No 09/08/2024 Food Access & Nutrition Answer Date Rec orded Do you have access to a vari ety of food including fruits and vegetables? Yes 09/08/2024 Health Literacy Answer Date Recorded How often do you need to hav e someone help you when you read instructions, pamphlets, or other written material from your doctor or pharmacy? Never 09/08/2024 Caregiver: How often do you need to have someone help you when you read instructions, pamphlets, or other written material from your doctor or pharmacy? Not on file 09/08/2024 Financial Risk Answer Date Recorded How hard is it for you to pa y for the very basics like food, housing, medical care, and air conditioning / heating? Not very hard 09/08/2024 Transportation Answer Date Recorded Has the lack of transportati on kept you from meetings, work, or from getting things needed for daily living? No Has the lack of transportati on kept you from medical appointments or from getting medications? No 09/08/2024 Social Isolation Answer Date Recorded How often do you feel lonely or isolated from th ose around you? Never 09/08/2024 Food Risk Answer Date Recorded Within the past 12 months we worried whether our food would run out before we got money to buy more. Never true 09/08/2024 Within the past 12 months th e food we bought just didn't last and we didn't have money to get more. Never true 09/08/2024 Dependent Care Answer Date Recorded Do you need help finding or paying for care for your loved ones. For example, exceptional children teacher assistant or elderly care for an older adult? No 09/08/2024 Education Answer Date Recorded Do you think completing more education or training, like finishing a GED, going to college, or learning a trade, would be helpful for you? No 09/08/2024 Employment and Income Answer Date Recor ded During the last four weeks, have you been actively looking for work? No 09/08/2024 Living Situation Answer Date Recorded What is your living situation? 1 11/09/2023 Comments No Sex and Gender Information Value Date Recorded Sex Assigned at Not on file Legal Sex Female 2:11 PM EST Gender Identity Not on file Sexual Orientation Not on file Obstetrics History Last Filed Vital Signs Vital Sign Reading Time Taken Comments Blood Pressure 115/60 09/08/2024 8:59 AM EST Pulse 84 09/08/2024 8:59 AM EST Temperature 36.1 ??C (96.9 ??F) 09/08/2024 8:59 AM ES T Respiratory Rate 16 09/08/2024 8:59 AM EST Oxygen Saturation 96% 09/08/2024 8:59 AM EST Inhaled Oxygen Concentration - - Weight 71.2 kg (157 lb) 09/08/2024 8:59 AM EST Height 160 cm (5' 3 ) 09/08/2024 8:59 AM EST Body Mass Index 27.81 09/08/2024 8:59 AM EST Plan of Treatment Upcoming Encounters Date Type Department Care Team (Late st Contact Info) Description 12/04/2024 8:45 AM EST Office Visit Adult Medicine [address] [phone] Svetlana Mccarty PA [address] [place] [address] 12/23/2024 9:40 AM EDT Office Visit [address] [phone] Joyce Davila PA [address] [place] [address] 01/14/2025 2:30 PM EDT Office Visit Adult Medicine [address] [phone] Gab Kerns, COTY [address] [place] [address] 04/22/2025 2:30 PM EDT Office Visit Adult Medicine [address] [phone] Gab Kerns, PA [address] [place] [address] 05/13/2026 2:00 PM EDT Appointment [facility] [address] [place] [phone] Health Maintenance Due Date Last Done Comments Breast Cancer Screening 1955 Zoster Vaccines (2 of 2) 04/29/2019 03/04/2019 COVID-19 Vaccine ( season) 2024 09/04/2023, 07/13/2022, 03/29/2022, Additional history exists Influenza Vaccine (#1) 2024 , 07/25/2022, 07/19/2021, Additional history exists Diabetes: Blood Sugar Control Test (HGBA1C) 08/28/2024 02/26/2024, 02/26/2024, 02/05/2024 Diabetes: Annual Retina Eye Exam 12/11/2024 12/12/2023 Diabetes: Annual Foot Exam 01/13/2025 01/14/2024 Diabetes: Annual Urine Albumin-Creatinine Ratio (uACR) 02/25/2025 02/26/2024 Diabetes: Annual GFR (Glomerular Filtration Rate) 02/25/2025 02/26/2024, 02/26/2024, 02/05/2024, Additional history exists Hypertension/CHF/CAD Annual BMP Blood Test 02/25/2025 02/26/2024, 02/26/2024, 02/05/2024, Additional history exists Depression Screening 09/08/2025 09/08/2024 Falls Risk Assessment 09/08/2025 09/08/2024 Social Influencers of Health Screening 09/08/2025 09/08/2024 Colorectal Cancer Screening: Colonoscopy 02/23/2027 02/23/2022 Cholesterol Screening (Lipid Panel) 02/25/2029 02/26/2024, 02/26/2024, 02/05/2024 DTaP,Tdap,and Td Vaccines (3 - Td or Tdap) 08/01/2029 08/01/2019, 06/24/2009 Osteoporosis Screening (Bone Density Screening) 11/03/2032 11/03/2022 Pneumococcal Vaccine: 50+ Years Completed 06/22/2023, 01/20/2022 RSV Immunization Patients 60+ Years Old Completed 11/23/2023 Hepatitis C Screening Completed 02/26/2024 HIB Vaccines Aged Out No longer eligi ble based on patient's age to complete this topic HPV Vaccines Aged Out No longer eligi ble based on patient's age to complete this topic Hepatitis A Vaccines Aged Out No long er eligible based on patient's age to complete this topic Hepatitis B Vaccines Aged Out No long er eligible based on patient's age to complete this topic IPV Vaccines Aged Out No longer eligi ble based on patient's age to complete this topic MMR Vaccines Aged Out No longer eligi ble based on patient's age to complete this topic Meningococcal ACWY Vaccine Aged Out N o longer eligible based on patient's age to complete this topic Meningococcal B Vacine Aged Out No lo nger eligible based on patient's age to complete this topic RSV Immunization Patients Under 20 months Aged Out No longer eligible based on patient's age to complete this topic Varicella Vaccines Aged Out No longer eligible based on patient's age to complete this topic Procedures Procedure Name Priority Date/Time Associated Diagnosis Comments HEPATITIS C SCREENING Routine 02/26/2024 URINE ALBUMIN CREATININE RATIO Routine 02/26/2024 ANNUAL BMP BLOOD TEST Routine 02/26/2024 HEMOGLOBIN A1C Routine 02/26/2024 LIPID PANEL Routine 02/26/2024 DIABETES FOOT EXAM Routine 01/14/2024 DIABETES EYE EXAM Routine 12/12/2023 DXA BONE DENSITY STUDY 1+ SITS AXIAL SKEL Routine 11/03/2022 2:19 PM EST Type 2 diabetes mellitus without complications (CMS/HCC) Pure hypercholesterolemia, unspecified Essential (primary) hypertension Impaired fasting glucose COLONOSCOPY Routine 02/23/2022 from Last 3 Months or Most Recently Relevant to Health Maintenance Results * Urine Albumin Creatinine Ratio (02/26/2024) [facility] Urine Albumin Creatinine Ratio abstracted Result [facility] Provider HEALTH MAINTENANCE Final Result * Annual BMP Blood Test (02/26/2024) [facility] Annual BMP Blood Test abstracted [facility] Provider HEALTH MAINTENANCE Final Result * Hepatitis C Screening (02/26/2024) [facility] Hepatitis C Screening abstracted [facility] Provider HEALTH MAINTENANCE Final Result * Hemoglobin A1c (02/26/2024) [facility] Hemoglobin A1C 6.4 <=6.5 % Blood Venous blood specimen / Unknown [facility] Provider LAB BLOOD ORDERABLES Kavya l Result * Lipid panel (02/26/2024) [facility] LDL/HDL Ratio 3 0 - 4 Triglycerides 89 0 - 150 mg/dL Cholesterol 101 0 - 200 mg/dL HDL 40 >=40 mg/dL LDL Cholesterol 44 0 - 100 mg/dL Blood Venous blood specimen / Unknown [facility] Provider LAB BLOOD ORDERABLES Kavya l Result * Diabetes Foot Exam (01/14/2024) [facility] Diabetes: Annual Foot Exam abstracted [facility] Provider HEALTH MAINTENANCE Final Result * Diabetes Eye Exam (12/12/2023) [facility] Diabetes: Annual Retina Eye Exam abstracted Result [facility] HEALTH MAINTENANCE Final Result * DXA BONE DENSITY STUDY 1+ SITS AXIAL SKEL (11/03/2022 2:19 PM EST) Anatomical Region Laterality Modality Bone Densitometr y 09/06/2022 11:0 4 AM EST Narrative 11/03/2022 6:05 PM EST BONE DENSITY SCAN (DEXA): FINDINGS: Lumbar Spine T-score is -2.1. ?? (SD relative to 20-29 y/o adult) Z-score is -0.3. ??(SD relative to age matched peers) This is considered osteopenia by WHO criteria. Left Hip T-score is -2.3. Z-score is -0.8. This is considered osteopenia by WHO criteria. Comparison exam(s): None. Lateral survey view of the thoracolumbar spine shows no significant compression deformities. IMPRESSION: IMPRESSION: Osteopenia by WHO criteria. This patient has a 33% risk of major osteoporotic fracture and a 4.0% risk of hip fracture over the next 10 years. (World Health Organization Fracture Risk Assessment) The [facility] Department of Internal Medicine recommends using National Osteoporosis Foundation (NOF) guidelines in treatment decisions related to osteoporosis. NOF guidelines suggest considering treatment for postmenopausal women and men aged 50 or older presenting with the following: History of hip or vertebral fracture. T-score = -2.5 (DXA) at the femoral neck, total hip, or spine, after appropriate evaluation to exclude secondary causes. Low bone mass (T-score between -1.0 and -2.5 at the femoral neck or spine) AND a 10-year probability of a hip fracture = 3% OR a 10-year probability of a major osteoporosis-related fracture = 20% based on the [place]-adapted WHO algorithm Please note that all treatment decisions require clinical judgment and consideration of individual patient factors, including patient preferences, co-morbidities, previous drug use, risk factors not captured in the FRAX model (e.g., frailty, falls, vitamin D deficiency, increased bone turnover, interval significant decline in bone density) and possible under- or over-estimation of fracture risk by FRAX. Optional alternative screening schedule based on michael Hollins., [facility] October 26, 2011 for patients with osteopenia (based on hip BMD T-score) is as follows: * ??advanced osteopenia (T scores -2.00 to -2.49), BMD testing every year * ??moderate osteopenia (T scores -1.50 to -1.99), BMD testing every 5 years mild osteopenia or normal BMD (T scores -1.50 and higher), BMD testing every 15 years Procedure Note Penny Calhoun MD - 11/13/2023 BONE DENSITY SCAN (DEXA): FINDINGS: Lumbar Spine T-score is -2.1. (SD relative to 20-29 y/o adult) Z-score is -0.3. (SD relative to age matched peers) This is considered osteopenia by WHO criteria. Left Hip T-score is -2.3. Z-score is -0.8. This is considered osteopenia by WHO criteria. Comparison exam(s): None. Lateral survey view of the thoracolumbar spine shows no significantcompression deformities. IMPRESSION: IMPRESSION: Osteopenia by WHO criteria. This patient has a 33% risk of majorosteoporotic fracture and a 4.0% risk of hip fracture over the next 10 years. (World HealthOrganization Fracture Risk Assessment) [facility] Department of Internal Medicine recommendsusing National Osteoporosis Foundation (NOF) guidelines in treatment decisions related toosteoporosis. NOF guidelines suggest considering treatment for postmenopausal women and menaged 50 or older presenting with the following: History of hip or vertebral fracture. T-score = -2.5 (DXA) at the femoral neck, total hip, or spine, afterappropriate evaluation to exclude secondary causes. Low bone mass (T-score between -1.0 and -2.5 at the femoral neck or spine)AND a 10-year probability of a hip fracture = 3% OR a 10-year probability of a majorosteoporosis-related fracture = 20% based on the [place]-adapted WHO algorithm Please note that all treatment decisions require clinical judgment andconsideration of individual patient factors, including patient preferences, co- morbidities,previous drug use, risk factors not captured in the FRAX model (e.g., frailty, falls, vitaminD deficiency, increased bone turnover, interval significant decline in bone density) andpossible under- or over-estimation of fracture risk by FRAX. Optional alternative screening schedule based on michael Hollins., NEJMJanuary 2011 for patients with osteopenia (based on hip BMD T-score) is as follows: * advanced osteopenia (T scores -2.00 to -2.49), BMD testing every year * moderate osteopenia (T scores -1.50 to -1.99), BMD testing every 5years mild osteopenia or normal BMD (T scores -1.50 and higher), BMD testingevery 15 years Gab ANSARI Wyatt DXA PROCEDURES Final Result * Colonoscopy (02/23/2022) [facility] Colonoscopy abstracted, no interpretation Anatomical Region Laterality Modality Other Historical Provider HEALTH MAINTENANCE Final Result from Last 3 Months or Most Recently Relevant to Health Maintenance Insurance [employer] Care Teams Machine Pan Greaser Relationship Specialty Start Date End Date Bhakti Hogue MD [address] [place] [id number] PCP - General Internal Medicine 09/08/24
--- OUTSIDE RECORDS SUMMARY | 2024-11-26 13:49 | XMS_ITS | Encounter Summary ---
Author Organization [facility] Address [address] [place] [address] Care Team Providers Care Parts Driver Name Role Phone Michael Garland MD Primary Care Provider [phone] Gab Kerns PA-C Primary Care Provider + [phone] Stehpani Sun MD Primary Care Provider Louann Ramirez MD Primary Care Provider Bhakti Arciniega MD Primary Care Prov ider Encounter Details Date Type Department Care Team Description 10/18/2019 Telephone Pulmonology - [place] [address] [facility] [address] [place] [phone] Radha Portillo MD [address] [place] [phone] Social History Tobacco Use Types Packs/Day Years [...] encounter Miscellaneous Notes * Telephone Encounter - Tammy Paulino - 10/18/2019 9:00 AM EST All attempts to reach patient to schedule pulmonary appointment have been exhausted. documented in this encounter Plan of Treatment Not on file documented as of this encounter Visit Diagnoses Not on filedocumented in this encounter Care Teams Parts Driver Relationship Specialty Start Date End Date Michael Garland MD [address] [place] [address] PCP - General 12/26/09 02/27/21 Gab Kerns PA-C [address] [place] [address] PCP - General Internal Medicine 02/28/21 08/01/21 Stephani Sun MD [address] [place] [address] PCP - General Internal Medicine 08/02/21 09/06/21 Louann Ching MD [address] [place] [address] PCP - General Internal Medicine 09/07/21 04/05/22 Bhakti Escalona MD [address] [place] [address] PCP - General Internal Medicine 04/06/22 documented as of this encounter
--- OUTSIDE RECORDS SUMMARY | 2024-11-26 13:49 | XMS_ITS | Encounter Summary ---
Author Organization [facility] Address [address] [place] [address] Care Team Providers Care Tanbark Peeler Name Role Phone Bhakti Escalona MD Primary Care Prov ider Encounter Details Date Type Department Care Team Description 04/19/2022 Hospital Medical Records [address] [place] [address] Chester Alvarado MD Social History Tobacco Use Types Packs/Day [...] suspected to have Coronavirus/COVID-19? No / Unsure 04/21/2022 10:26 AM EDT documented as of this encounter Plan of Treatment Not on file documented as of this encounter Visit Diagnoses Not on filedocumented in this encounter Care Teams Tanbark Peeler Relationship Specialty Start Date End Date Bhakti Escalona MD [address] [place] [address] PCP - General Internal Medicine 04/06/22 documented as of this encounter
--- OUTSIDE RECORDS SUMMARY | 2024-11-26 13:49 | XMS_ITS | Encounter Summary ---
Author Organization [facility] Address [address] [place] [address] Care Team Providers Care First Aid Attendant Name Role Phone Michael Garland MD Primary Care Provider [phone]- [phone] Gab Kerns PA-C Primary Care Provider Stephani Sun MD Primary Care Provider Louann Ramirez MD Primary Care Provider Bhakti Arciniega MD Primary Care Prov ider Reason for Visit * Reason Onset Date Comments External Sleep Study Request 08/19/2020 [facility] atment study Encounter Details Date Type Department Care Team Description 08/19/2020 Telephone Pulmonology [address] [place], [place] [phone] Radha Portillo MD [address] [place] [phone] External Sleep Study Request (Treatment study) Social History Tobacco Use Types Packs/Day Years [...] have Coronavirus / COVID-19? No / Unsure 08/16/2020 1:51 PM EST documented as of this encounter Miscellaneous Notes * Telephone Encounter - Serenity Brownard - 08/24/2020 2:42 PM EST appt- Oct 26 at 7 PM [facility] Covid testing Oct 23 at 10:[address] [place] Letter mailed * Telephone Encounter - Serenity Estrada - 08/19/2020 7:46 AM EST Us Family No auth required Order and notes faxed to [facility] Awaiting appt. documented in this encounter Plan of Treatment Not on file documented as of this encounter Visit Diagnoses Not on filedocumented in this encounter Care Teams First Aid Attendant Relationship Specialty Start Date End Date Michael Garland MD [address] [place] [address] PCP - General 12/26/09 02/27/21 Gab Kerns PA-C [address] [place] [address] PCP - General Internal Medicine 02/28/21 08/01/21 Stephani Sun MD [address] [place] [address] PCP - General Internal Medicine 08/02/21 09/06/21 Louann Ching MD [address] [place] [address] PCP - General Internal Medicine 09/07/21 04/05/22 Bhakti Escalona MD [address] [place] [address] PCP - General Internal Medicine 04/06/22 documented as of this encounter
--- OUTSIDE RECORDS SUMMARY | 2024-11-26 13:49 | XMS_ITS | Encounter Summary ---
Author Organization [facility] Address [address] [place] [address] Care Team Providers Care Wire Coiner Name Role Phone Louann Ching MD Primary Care Provider Bhakti Arciniega MD Primary Care Prov ider Encounter Details Date Type Department Care Team Description 12/05/2021 [facility] [address] [place] [address] Md Jolly Social History Tobacco Use Types [...] on filedocumented in this encounter Care Teams Wire Coiner Relationship Specialty Start Date End Date Louann Ching MD PCP - General Internal Medicine 09/07/21 04/05/22 Bhakti Escalona MD [address] [place] [address] PCP - General Internal Medicine 04/06/22 documented as of this encounter
--- OUTSIDE RECORDS SUMMARY | 2024-11-26 13:49 | XMS_ITS | Encounter Summary ---
Author Organization [facility] Address [address] [place] [address] Care Team Providers Care Signal Supervisor Name Role Phone Michael Garland MD Primary Care Provider [phone]- [phone] Gab Kerns PA-C Primary Care Provider + [phone] Stephani Sun MD Primary Care Provider Louann Ramirez MD Primary Care Provider Bhakti Arciniega MD Primary Care Prov ider Encounter Details Date Type Department Care Team Description 11/23/2017 Invasive Manager Report Medical Records [address] [place] [address] Jacquie Stovall Social History Tobacco Use Types [...] on filedocumented in this encounter Care Teams Signal Supervisor Relationship Specialty Start Date End Date Michael Garland MD [address] [place], [place] [phone] PCP - General 12/26/09 02/27/21 Gab Kerns PA-C [address] [place] [address] PCP - General Internal Medicine 02/28/21 08/01/21 Stephani Sun MD [address] [place] [address] PCP - General Internal Medicine 08/02/21 09/06/21 Louann Ching MD [address] [place] [address] PCP - General Internal Medicine 09/07/21 04/05/22 Bhakti Escalona MD [address] [place] [address] PCP - General Internal Medicine 04/06/22 documented as of this encounter
--- OUTSIDE RECORDS SUMMARY | 2024-11-26 13:49 | XMS_ITS | Encounter Summary ---
Author Organization [facility] Address [address] [place] [address] Care Team Providers Care Assessment Consultant Name Role Phone Bhakti Escalona MD Primary Care Prov ider Encounter Details Date Type Department Care Team Description 01/21/2024 Orders Only Medical Records [address] [place] [address] Tiara Obando DPM Social History Tobacco Use Types Packs/Day Years [...] Procedure Name Priority Date/Time Associated Diagnosis Comments OUTSIDE FOOT EXAM Routine 01/14/2024 documented in this encounter Results * OUTSIDE FOOT EXAM (01/14/2024) Tiara Obando DPM PERFORMABLES documented in this encounter Visit Diagnoses Not on filedocumented in this encounter Care Teams Assessment Consultant Relationship Specialty Start Date End Date Bhakti Escalona MD [address] [place], [place] [phone] PCP - General Internal Medicine 6/30/22 documented as of this encounter
--- OUTSIDE RECORDS SUMMARY | 2024-11-26 13:49 | XMS_ITS | Encounter Summary ---
Author Organization [facility] Address [address] [place] [address] Care Team Providers Care Pathologist Assistant Name Role Phone Michael Garland MD Primary Care Provider [phone]- [phone] Gab Kerns PA-C Primary Care Provider + [phone] Stephani Sun MD Primary Care Provider Louann Ramirez MD Primary Care Provider Bhakti Arciniega MD Primary Care Prov ider Reason for Visit * Reason Comments Encounter Details Date Type Department Care Team Description 01/22/2014 Telephone Dermatology [address] [place], [place] [phone] Alexis Villareal PA-C Social History Tobacco Use Types Packs/Day Years [...] on filedocumented in this encounter Care Teams Pathologist Assistant Relationship Specialty Start Date End Date Michael Garland MD [address] [place] [address] [phone] PCP - General 12/26/09 02/27/21 Gab Kerns PA-C [address] [place] [address] PCP - General Internal Medicine 02/28/21 08/01/21 Stephani Sun MD [address] [place] [address] PCP - General Internal Medicine 08/02/21 09/06/21 Louann Ching MD [address] [place] [address] PCP - General Internal Medicine 09/07/21 04/05/22 Bhakti Escalona MD [address] [place] [address] PCP - General Internal Medicine 04/06/22 documented as of this encounter
--- OUTSIDE RECORDS SUMMARY | 2024-11-26 13:49 | XMS_ITS | Encounter Summary ---
Author Organization [facility] Address [address] [place] [address] Care Team Providers Care Sheet Rock Nailer Name Role Phone Michael Garland MD Primary Care Provider [phone]- [phone] Gab Kerns PA-C Primary Care Provider + [phone] Stephani Sun MD Primary Care Provider Louann Ramirez MD Primary Care Provider Bhakti Arciniega MD Primary Care Prov ider Encounter Details Date Type Department Care Team Description 08/18/2020 Telephone Pulmonology - [place] [address] [facility] [address] [place] [address] Radha Portillo MD [address] [place] [address] Social History Tobacco Use Types [...] Miscellaneous Notes * Telephone Encounter - Serenity Natalie - 08/18/2020 12:48 PM EST We are currently working Jul 05 It should be worked within the next few days. * Telephone Encounter - Lenora Arnold M.A. - 08/18/2020 12:16 PM EST asking , when this pt is going to have the sleep study. documented in this encounter Plan of Treatment Not on file documented as of this encounter Visit Diagnoses Not on filedocumented in this encounter Care Teams Sheet Rock Nailer Relationship Specialty Start Date End Date Michael Garland MD [address] [place] [address] PCP - General 12/26/09 02/27/21 Gab Kerns PA-C [address] [place] [address] PCP - General Internal Medicine 02/28/21 08/01/21 Stephani Sun MD [address] [place] [address] PCP - General Internal Medicine 08/02/21 09/06/21 Louann Ching MD [address] [place], [place] [phone] PCP - General Internal Medicine 09/07/21 04/05/22 Bhakti Escalona MD [address] [place] [address] PCP - General Internal Medicine 04/06/22 documented as of this encounter
--- OUTSIDE RECORDS SUMMARY | 2024-11-26 13:49 | XMS_ITS | Encounter Summary ---
Author Organization [facility] Address [address] [place] [address] Care Team Providers Care Beauty Operator Apprentice Name Role Phone Michael Garland MD Primary Care Provider [phone]- [phone] Gab Kerns PA-C Primary Care Provider [phone] Stephani Sun MD Primary Care Provider Louann Ramirez MD Primary Care Provider Bhakti Arciniega MD Primary Care Prov ider Reason for Visit * Reason Onset Date Comments TEST RESULTS 11/13/2019 Encounter Details Date Type Department Care Team Description 11/13/2019 Telephone Adult Medicine [address] [phone] Justina Clifford PA [address] [place] [address] [phone] TEST RESULTS Social History Tobacco Use Types Packs/Day Years [...] Telephone Encounter - Anne Mojica M.A. - 11/13/2019 3:28 PM EST Pt advised. * Telephone Encounter - Kendra Dover M.A. - 11/13/2019 11:17 AM EST Nehal Man tried calling the pt. See result note * Telephone Encounter - Ean Barone - 11/13/2019 11:06 AM EST Inform patient: ANY URGENT OR ABNORMAL RESULTS WIILL RESULT IN A CALL BACK TO THE PATIENT ALEX. Type of test: x-ray Date test was performed: 11/12/19 Where was the test performed: [place] Who ordered this test?: Justina Clifford Is the doctor here today?: NO Can the message wait until the doctor returns?: YES IF PATIENT'S PCP IS NOT IN INSTRUCT PATIENT THAT THEY WILL RECEIVE A CALL BACK WHEN THE PCP IS IN THE OFFICE NEXT. documented in this encounter Plan of Treatment Not on file documented as of this encounter Visit Diagnoses Not on filedocumented in this encounter Care Teams Beauty Operator Apprentice Relationship Specialty Start Date End Date Michael Garland MD [address] [place] [address] PCP - General 12/26/09 02/27/21 Gab Kerns PA-C [address] [place] [address] PCP - General Internal Medicine 02/28/21 08/01/21 Stephani Sun MD [address] [place], [place] [phone] PCP - General Internal Medicine 08/02/21 09/06/21 Louann Ching MD [address] [place] [address] PCP - General Internal Medicine 09/07/21 04/05/22 Bhakti Escalona MD [address] [place] [address] PCP - General Internal Medicine 04/06/22 documented as of this encounter
--- OUTSIDE RECORDS SUMMARY | 2024-11-26 13:49 | XMS_ITS | Encounter Summary ---
Author Organization [facility] Address [address] [place] [address] Care Team Providers Care Track Car Operator Name Role Phone Michael Garland MD Primary Care Provider +1- [phone] Gab Kerns PA-C Primary Care Provider [phone] Stephani Sun MD Primary Care Provider Louann Ramirez MD Primary Care Provider Bhakti Arciniega MD Primary Care Prov ider Encounter Details Date Type Department Care Team Description 02/04/2012 Refill Adult Medicine [address] [phone] Michael Garland MD [address] [place] [address] [phone] Social History Tobacco Use Types Packs/Day Years Used Date Smoking Tobacco: Never Smokeless Tobacco: Never Alcohol Use Standard Drinks/Week Comments Yes 0 (1 standard drink = 0.6 oz pur e alcohol) occas Sex Assigned at Date Recorded Not on file Job Start Date Occupation Industry Not on file Not on file Not on file documented as of this encounter Plan of Treatment Not on file documented as of this encounter Visit Diagnoses Not on filedocumented in this encounter Care Teams Track Car Operator Relationship Specialty Start Date End Date Michael Garland MD [address] [place] [address] PCP - General 12/26/09 02/27/21 Gab Kerns PA-C [address] [place] [address] PCP - General Internal Medicine 02/28/21 08/01/21 Stephani Sun MD [address] [place] [address] PCP - General Internal Medicine 08/02/21 09/06/21 Louann Ching MD [address] [place] [address] PCP - General Internal Medicine 09/07/21 04/05/22 Bhakti Escalona MD [address] [place] [address] PCP - General Internal Medicine 04/06/22 documented as of this encounter
--- OUTSIDE RECORDS SUMMARY | 2024-11-26 13:49 | XMS_ITS | Encounter Summary ---
Author Organization [facility] Address [address] [place] [address] Care Team Providers Care Procurement Forester Name Role Phone Michael Garland MD Primary Care Provider [phone]- [phone] Gab Kerns PA-C Primary Care Provider [phone] Stephani Sun MD Primary Care Provider Louann Ramirez MD Primary Care Provider Bhakti Arciniega MD Primary Care Prov ider Reason for Visit * Reason Onset Date Comments refill request 08/18/2016 Encounter Details Date Type Department Care Team Description 08/18/2016 Refill Adult Medicine [address] [phone] Michael Garland MD [address] [place] [address] [phone] refill request Social History Tobacco Use Types [...] encounter Miscellaneous Notes * Telephone Encounter - Mercy Vivas L.P.N. - 08/21/2016 8:44 AM EST Not contracted last refill 06/13/2016 #10 * Telephone Encounter - Zuly Fisher - 08/18/2016 4:28 PM EST Patient would like script to be: E-PRESCRIBED/FAXED TO PHARMACY WHEN WAS THE PATIENT'S LAST APPOINTMENT IN ADULT MEDICINE? 07/05/2016 WHEN WAS THE LAST TIME THE PATIENT SAW THEIR PCP? Same as above Does patient have an upcoming appointment? Yes 10/18/2016 (THE MEDICATION REQUESTED IS ON THE MED LIST ABOVE) All of the medications requested were on the CURRENT MEDS list Did you check the Pharmacy information above?: YES Patient wants: 30 -day supply Is this a mail order prescription request ? NO Patients current insurance carrier is: Payor: [employer] / [id number] / Product Type: POS [id number] documented in this encounter Plan of Treatment Not on file documented as of this encounter Visit Diagnoses Not on filedocumented in this encounter Care Teams Procurement Forester Relationship Specialty Start Date End Date Michael Garland MD [address] [place] [address] PCP - General 12/26/09 02/27/21 Gab Kerns PA-C [address] [place] [address] [phone] PCP - General Internal Medicine 02/28/21 08/01/21 Stephani Sun MD [address] [place] [address] PCP - General Internal Medicine 08/02/21 09/06/21 Louann Ching MD [address] [place] [address] PCP - General Internal Medicine 09/07/21 04/05/22 Bhakti Escalona MD [address] [place] [address] PCP - General Internal Medicine 04/06/22 documented as of this encounter
--- OUTSIDE RECORDS SUMMARY | 2024-11-26 13:49 | XMS_ITS | Encounter Summary ---
Author Organization [facility] Address [address] [place] [address] Care Team Providers Care Assurance Senior Manager Name Role Phone Michael Garland MD Primary Care Provider +1- [phone] Gab Kerns PA-C Primary Care Provider [phone] Stephani Sun MD Primary Care Provider Louann Ramirez MD Primary Care Provider Bhakti Arciniega MD Primary Care Prov ider Reason for Visit * Reason Onset Date Comments Electric Meter Technician Feedback 08/11/2020 Alexis Villareal Encounter Details Date Type Department Care Team Description 08/11/2020 Telephone Adult Medicine [address] [phone] Michael Garland MD [address] [place] [address] [phone] Electric Meter Technician Feedback (Alexis Villareal) Social History Tobacco Use Types Packs/Day Years [...] or suspected to have Coronavirus / COVID-19? Unable to assess 08/12/2020 1:41 PM EST documented as of this encounter Miscellaneous Notes * Telephone Encounter - Jaymie Zhang - 08/11/2020 9:12 AM EST .processed and linked [id number] * Telephone Encounter - [place] - 08/11/2020 8:18 AM EST Request for a referral to a Shannen Specialist for a patient with a Shannen PCP. If patient does NOT have a Shannen PCP they must obtain a referral from their PCP before being seen-do not submit request to Referrals department-contact patient. Specialty patient is being referred to: Dermatology Name of Specialist patient is seeing: Alexis Villareal Reason/diagnosis for visit: full skin exam Date of appoinment: 08/16/20 If retro, date referral needs to start: Michael Garland Payor: [employer] / Plan: [employer] POS $20/$30 [place] [id number] / Product Type: POS [id number] documented in this encounter Plan of Treatment Not on file documented as of this encounter Visit Diagnoses Not on filedocumented in this encounter Care Teams Assurance Senior Manager Relationship Specialty Start Date End Date Michael Garland MD [address] [place] [address] PCP - General 12/26/09 02/27/21 Gab Kerns PA-C [address] [place] [address] PCP - General Internal Medicine 02/28/21 08/01/21 Stephani Sun MD [address] [place] [address] PCP - General Internal Medicine 08/02/21 09/06/21 Louann Ching MD [address] [place] [address] PCP - General Internal Medicine 09/07/21 04/05/22 Bhakti Escalona MD [address] [place] [address] PCP - General Internal Medicine 04/06/22 documented as of this encounter
--- OUTSIDE RECORDS SUMMARY | 2024-11-26 13:50 | XMS_ITS | Encounter Summary ---
Author Organization [facility] Address [address] [place] [address] Care Team Providers Care Credit Risk Management Director Name Role Phone Michael Garland MD Primary Care Provider +1- [phone] Gab Kerns PA-C Primary Care Provider + [phone] Stephani Sun MD Primary Care Provider Louann Ramirez MD Primary Care Provider Bhakti Arciniega MD Primary Care Prov ider Encounter Details Date Type Department Care Team Description 07/17/2014 Hand I Thermal Cutter Report Medical Records [address] [place] [address] Gab Rudolph MD Social History Tobacco Use Types Packs/Day [...] on filedocumented in this encounter Care Teams Credit Risk Management Director Relationship Specialty Start Date End Date Michael Garland MD [address] [place], [place] [phone] PCP - General 12/26/09 02/27/21 Gab Kerns PA-C [address] [place] [address] PCP - General Internal Medicine 02/28/21 08/01/21 Stephani Sun MD [address] [place] [address] PCP - General Internal Medicine 08/02/21 09/06/21 Louann Ching MD [address] [place] [address] PCP - General Internal Medicine 09/07/21 04/05/22 Bhakti Escalona MD [address] [place] [address] PCP - General Internal Medicine 04/06/22 documented as of this encounter
--- OUTSIDE RECORDS SUMMARY | 2024-11-26 13:50 | XMS_ITS | Encounter Summary ---
Author Organization [facility] Address [address] [place] [address] Care Team Providers Care Records Tech Name Role Phone Bhakti Escalona MD Primary Care Prov ider Encounter Details Date Type Department Care Team Description 06/24/2024 Pt. Non Urgent Medical Question Adult Medicine [address] [address] Gab Kerns PA-C [address] [place] [address] [phone] Social History Tobacco Use Types Packs/Day Years [...] on filedocumented in this encounter Care Teams Records Tech Relationship Specialty Start Date End Date Bhakti Escalona MD [address] [place] [address] PCP - General Internal Medicine 04/06/22 documented as of this encounter
--- OUTSIDE RECORDS SUMMARY | 2024-11-26 13:50 | XMS_ITS ---
Author Organization [facility] Address [address] [facility] [address] [place] [address] Care Team Providers Care Early Intervention School Psychologist Name Role Phone KAREN CAICEDO MD, CLARITZA Primary Care Provider Kristin Kurtz [phone] REASON FOR VISIT Annual HOUSECLEANER FLOOR Physical Encounters Encounter Location Date Provider Diagnosis [facility] [address] [facility] [address] [facility] [address] [place] [address] 03/12/2024 Kristin Carranza Plan Of Treatment Next Appt Details Provider Name:Kristin cedillo, 12/25/2024 10:20:00 AM, [address] [facility], [address], [place], [address], Progress Notes * CORWIN HARRISONOB: [birth year] (69 yo F)Acc No.[id number]:03/12/2024 PROGRESS NOTES Patient:?HUNTER KRANTHI Appointment Provider:?Kristin cedillo M.D. :1955???Age:69 Y???Sex:Female D ate:03/12/2024 Address:[address] [place] [address] [address], , [id number] Pcp:CLARITZA CAICEDO MD Subjective: * Chief Complaints: * ???1. Annual HOUSECLEANER FLOOR Physical. * Medical History:? Objective: * Vitals:? Assessment: Plan: * Treatment: * Images: Billing Information: * Visit Code:? * Procedure Codes:? * Electronic signature of Becca Carranza MD on 11/26/2024 at 01:50 PM EST Sign off status: Pending * Appointment Provider:?Kristin Carranza M.D. Date:?03/12/2024 Generated for Dennis zambrano/Cesar/Pepito on:?11/26/2024 01:50 PM EST
--- OUTSIDE RECORDS SUMMARY | 2024-11-26 13:50 | XMS_ITS | Encounter Summary ---
Author Organization [facility] Address [address] [place] [address] Care Team Providers Care Energy Operations Vice President Name Role Phone Bhakti Escalona MD Primary Care Prov ider Encounter Details Date Type Department Care Team Description 07/10/2022 Pt. Referral Request [facility] MyChart [address] [place] [address] Md Jolly Social History Tobacco Use Types [...] PM EDT documented as of this encounter Plan of Treatment Not on file documented as of this encounter Visit Diagnoses Not on filedocumented in this encounter Care Teams Energy Operations Vice President Relationship Specialty Start Date End Date Bhakti Escalona MD [address] [place], [place] [phone] PCP - General Internal Medicine 04/06/22 documented as of this encounter
--- OUTSIDE RECORDS SUMMARY | 2024-11-26 13:50 | XMS_ITS ---
Author Organization [facility] Address [address] [address] Care Team Providers Care Home Visit Field Care Manager Name Role Phone Bhakti Garner Primary Care Provider TIARA Ortiz [phone] Allergies Allergen (clinical drug ingredient) Drug/Non Drug [...] Duration) Notes Start Date End Date Status Simvastatin 40 MG 1 tablet in the even ing Orally Once a day Active Omeprazole 20 MG 1 capsule 30 minutes before morning meal Orally Once a day Active Nortriptyline HCl 25 MG 1 capsule Orally Once a day Active ALPRAZolam 0.5 MG 1 tablet Orally Once a day Active Calcium Citrate + D Active Turmeric 500 MG as directed Orally Not-Taking PROzac 20 MG 1 capsule Orally Onc e a day Active Reclast 5 MG/100ML as directed Intravenous Not-Taking Estradiol 0.1 MG/GM as directed Vaginal Not-Taking Claritin 10 MG 1 tablet Orally Once a day Not-Taking Losartan Potassium 50 MG 1 tablet Orally Once a day Not-Taking Vital Signs Weight 162.6 lbs 10/29/2024 Height 5ft 3in in 10/29/2024 BMI 28.8 kg/m2 10/29/2024 Encounters Encounter Location Date Provider Diagnosis [facility] [address] [address] 10/29/2024 TIARA SEAY Type 2 diabetes mellitus with hyperglycemia, without long-term current use of insulin E11.65 ; Hallux limitus, right M20.5X1 and Postmenopausal osteoporosis M81.0 Assessments Encounter Date Diagnosis (ICD Code) Assessment Notes Treatment Notes Treatment Clinical Notes Section Notes 10/29/2024 Type 2 diabetes mellitus with hyperglycemia, [...] - M20.5X1) The foot callus is resolved. 10/29/2024 Postmenopausal osteoporosis (ICD-10 - M81.0) I [...] Follow Up: 3 Months, Reason: Provider Name:TIARA SEAY, 2025 11:30:00 AM, [address], [address], Progress Notes * Marichuy HARRISONOB: [birth year] (69 yo F)Acc No.[id number]:10/29/2024 Progress Note Patient:?Nicole HARRISON Provider:?Tiara Seay DPM :1955???Age:69 Y???Sex:Female D ate:10/29/2024 Address:[address] [place], [place] [id number] Pcp:Bhakti Garner Subjective: * Chief Complaints: * ???3 month f/u * HPI: ???Constitutional:?This 69 y/o female returns to my office for a diabetic foot evaluation. Since her last visit, her . he was also a patient at this office. She states this has been a hard transition for her. The callus has not returned. Overall she denies any pain or recent issues with her feet. She was diagnosed with osteoporosis and is awaiting starting Reclast. She denies any recent stress fractures. She has no other foot complaints this visit. Her hba1c was elevated last time at 7.0. Her last visit with her PCP care team for diabetes management was 08/26/2024. Allergies and medical history reviewed. * ROS:?GENERAL: [...] in the evening Orally Once a day PROzac 20 MG [...] the evening Orally Once a day Taking PROzac 20 MG Capsule 1 capsule Orally Once a day Not-TakingLosartan Potassium 50 MG Tablet 1 tablet Orally Once a day Turmeric 500 MG Capsule as directed Orally Claritin 10 MG Tablet 1 tablet Orally Once a day Estradiol 0.1 MG/GM Cream as directed Vaginal Reclast 5 MG/100ML Solution as directed Intravenous Medication List reviewed and reconciled with the patientNot-Taking Losartan Potassium 50 MG Tablet 1 tablet Orally Once a day Not-Taking Turmeric 500 MG Capsule as directed Orally Not-Taking Claritin 10 MG Tablet 1 tablet Orally Once a day Not-Taking Estradiol 0.1 MG/GM Cream as directed Vaginal Not-Taking Reclast 5 MG/100ML Solution as directed Intravenous Medication List reviewed and reconciled with the patient * Allergies:?Moldsulfa drugsLi sinoprilVoSoL HCno[Allergies Verified] Objective: * Vitals:?Wt:162.6lbs, Ht: 5ft 3in, BMI:28.8Index, Ht-cm: 160.02, Wt-k.75 kg. * Examination: ???General Examination: ???GENERAL: Patient appears well nourished, with NAD. VASCULAR: Dorsalis pedis pulses are 2/4 bilaterally and Posterior tibial pulses are 2/4 bilaterally. Capillary filling time within normal limits the digits. No pallor on elevation or rubor on dependency. No varicosities. Denies rest pain or claudication pain. Each foot temperature is within normal limits. NEUROLOGICAL: Sharp/dull sensation intact bilaterally, protective sensation intact 10/10 with 5.07 [place] Alondra bilaterally, vibratory sensation with tuning fork [...] limited. On weight-bearing, rectus foot position. SHOES: sneakers. Assessment: * Assessment: 1.?Type 2 diabetes mellitus with hyperglycemia, without long-term current use of insulin - E11.65 (Primary)???2.?Hallux limitus, right - M20.5X1???3.?Postmenopausal osteoporosis - M81.0??? Plan: * Treatment: 2.?Hallux limitus, right? Notes: [...] Months * Billing Information: * Visit Code:? 43923 Office Visit, Est Pt., Level 3. * Procedure Codes:? * Sign off status: Completed true * Provider:?Tiara Seay DPM Date:? 10/29/2024 Generated for Dennis zambrano/Cesar/Shivaitting on:?11/26/2024 01:50 PM EST History and Physical Notes * HPI (History of Present Illness) Category Sub-Category Detail Notes Category Not es Constitutional This 69 y/o f emaandrew returns to my office for a diabetic foot evaluation. Since her last visit, her . he was also a patient at this office. She states this has been a hard transition for her. The callus has not returned. Overall she denies any pain or recent issues with her feet. She was diagnosed with osteoporosis and is awaiting starting Reclast. She denies any recent stress fractures. She has no other foot complaints this visit. Her hba1c was elevated last time at 7.0. Her last visit with her PCP care team for diabetes management was 08/26/2024. Allergies and medical history reviewed. Examination Category [...] bilaterally, protective sensation intact 10/10 with 5.07 [place] Alondra bilaterally, vibratory sensation with tuning fork [...]
--- OUTSIDE RECORDS SUMMARY | 2024-11-26 13:50 | XMS_ITS | Encounter Summary ---
Author Organization [facility] Address [address] [place] [address] Care Team Providers Care Wool Brusher Name Role Phone Bhakti Escalona MD Primary Care Prov ider Encounter Details Date Type Department Care Team Description 08/07/2022 Pt. Non Urgent Medical Question Adult Medicine [address] [address] Gab Kerns PA-C [address] [place] [address] [phone] Social History Tobacco Use Types Packs/Day Years [...] on filedocumented in this encounter Care Teams Wool Brusher Relationship Specialty Start Date End Date Bhakti Escalona MD [address] [place] [id number] PCP - General Internal Medicine 04/06/22 documented as of this encounter
--- OUTSIDE RECORDS SUMMARY | 2024-11-26 13:50 | XMS_ITS | Encounter Summary ---
Author Organization [facility] Address [address] [place] [address] Care Team Providers Care Guncotton Packer Name Role Phone Bhakti Escalona MD Primary Care Prov ider Reason for Referral * EXTERNAL (Routine) - Closed Specialty Diagnoses / Procedures Referred By Contac t Referred To Contact Obstetrics/Gynecology / Obstetrics & Gynecology Procedures REFERRAL TO OBSTETRICS & GYNECOLOGY Bhakti Escalona MD [address] [place] [id number] External Obgyn Referral ID Status Reason Start Date Expiration Date Visits Re quested Visits Authorized [id number] Closed 10/23/2022 01/23/2023 1 Encounter Details Date Type Department Care Team Description 10/23/2022 Pt. Non Urgent Medical Question Adult Medicine [address] [address] Gab Kerns PA-C [address] [place] [address] [phone] Social History Tobacco Use Types Packs/Day Years [...] encounter Miscellaneous Notes * Telephone Encounter - Gertrudis Santos C.M.A. - 10/23/2022 1:02 PM ESTFrom: Nicole Mccracken To: Miguel A Kerns Sent: 10/23/2022 12:22 PM EST Subject: Refferal I need a refferal for dr ney [facility]???[facility] for my follow up appt [address] [place] Phone [phone] Fax [phone]?? Because I I have [facility] refferal needs to come from dr ever ohara I know this is pain inthe future do you need me to ask for refferal directly from dr lau or go through the refferal line < BR>Thank you so much We are looking intotricare for life because this is ridiculous documented in this encounter Plan of Treatment Not on file documented as of this encounter Visit Diagnoses Not on filedocumented in this encounter Care Teams Guncotton Packer Relationship Specialty Start Date End Date Bhakti Escalona MD [address] [place] [id number] PCP - General Internal Medicine 04/06/22 documented as of this encounter
--- NOTE | 2024-11-26 14:00 | MHC.OFFWIV ---
Intake Vital Signs 11/26/24 14:02 Weight 166 lb BP 120/90 H Blood Pressure Location Rt brachial Position Sitting Pulse 101 H Pulse Source Pulse Oximeter Pulse Oximetry (%) 97 Oxygen Delivery Method Room Air Intake Visit Reasons: EP LRQ pain Intake Note: Patient here for lower left abdominal pain that started about 1 week ago and mentioned she feels better after having a BM. Patient Tobacco Use Status: Never used Tobacco Allergies Sulfa (Sulfonamide Antibiotics) Allergy (Mild, Verified 11/26/24 14:03) Hives lisinopril Adverse Reaction (Mild, Verified 11/26/24 14:03) Cough Do you need a note to return to daycare/school/sports/work: No HPI HPI Comments History of Present Illness Details Patient is a 69yo F who presents to the office with RLQ abdominal pain Ongoing x 1 week Last week she had body aches x 2 days and it resolved with Advil Intermittent pain better with bowel movement Hx of hysterectomy in past 2 years ago with ovary removal No fever or chills Normal appetite without nausea/vomiting, diarrhea or constipation Formed bowel movement 2-3 times a day; no diarrhea. She said she is having more than usual No urine complaints; no blood She denies change in chronic back pain; sees chiropractor for it PFSH Social History Patient Tobacco Use Status: Never used Tobacco Review of Systems Const Denies chills, Denies fever(s) and Denies poor appetite Card Denies chest pain and Denies dyspnea Resp Denies cough and Denies dyspnea GI Reports abdominal pain, Denies hematochezia, Reports change in stool character, Denies constipation, Denies diarrhea, Denies loose stools, Denies nausea, Denies vomiting and Reports other (more frequent stools) Denies dysuria, Denies urinary incontinence and Denies urinary urgency Musc Reports back pain (chronic) Skin/Breast Denies rash Physical Exam Vital Signs: Last Vital Signs Pulse 101 H 11/26/24 14:02 BP 120/90 H 11/26/24 14:02 Pulse Ox 97 11/26/24 14:02 Oxygen Delivery Method Room Air 11/26/24 14:02 General: Non-toxic, NAD. Speaking full sentences. Skin: Warm dry throughout Eye: EOMI HENT: Airway patent. Uvula midline. No pharyngeal erythema or edema. No REGULATORY AFFAIRS CONSULTANT. slightly dry oral mucosa. Bilateral canals clear. TM non-erythematous, non-bulging. No TM perforation or hemotympanum noted. Respiratory: CTA bilaterally. No wheezes, rales or rhonchi Cardiac: RRR. No murmur Abdominal: BS present. No palpable masses. No abdominal distention or pusatile mass. + ttp RLQ with deep palpation but otherwise no ttp with light palpation. Negative Rosving and Psoas sign. No CVAT. MSK: Full ROM extremities. Neurology: Alert. No aphasia or facial droop. Gait without abnormality Psych: Good mood and affect Assessment & Plan Assessment & Plan (1) Abdominal pain: Code(s): R10.9 - Unspecified abdominal pain Qualifiers: Abdominal location: right lower quadrant Qualified Code(s): R10.31 - Right lower quadrant pain Plan: Patient seen and evaluated. Pain ongoing x 1 week and pt does not have acute abdomen on exam U/a obtained due to R flank/RLQ pain: no leuks, nitrates or blood No culture indicated Discussed different etiologies of abdominal pain No current concern for appy due to intermittent pain x 1 week, afebrile without significant findings on abdominal exam Warning s/s discussed with pt on what to monitor for with concern appy and she will go to ED with any persistent pain, worsening pain, fever, nausea/vomiting, umbilical pain etc Patient gave verbal understanding and had no additional questions or concerns at time of discharge All questions answered Coding Level of Care Code Est Pt Level 3 (39666) Diagnoses Right lower quadrant abdominal pain R10.31 Abdominal location: right lower quadrant
[2024-11-26 14:02] VITALS: BP 120/90; PULSE 101; O2SAT 97
== END 2024-11-26 14:40 | disposition home or self-care (01) ==
PROVIDERS: PCP Internal Medicine; Visit Provider Physician Assistant
DX: Z13.9 Encounter for screening, unspecified (principal); R10.31 Right lower quadrant pain

== ENCOUNTER → 2024-11-26 13:29 | Outpatient (BNVA) | payer OTHER, SELFPAY | PROVIDERS: PCP Internal Medicine | DX: R10.31 Right lower quadrant pain (principal) | CPT/HCPCS: 81003; 99212 ==

== ENCOUNTER 2025-07-15 15:57 | Outpatient (AMB) | payer OTHER, SELFPAY ==
--- NOTE | 2025-07-15 16:05 | A.OFFVIS_ITS ---
Intake Visit Reasons: 6m Allergies Sulfa (Sulfonamide Antibiotics) Allergy (Mild, Verified 11/26/24 14:03) Hives lisinopril Adverse Reaction (Mild, Verified 11/26/24 14:03) Cough Medication List - Last Reconciled 07/15/25 by Tc Victor MD alprazolam 0.5 mg PO DAILY PRN clobetasol 0.05% 1 appl topical BID estradiol 10 mcg vaginal 2XW fluoxetine 20 mg PO DAILY fluticasone propionate 50 mcg/actuation (Flonase Allergy Relief) 1 spray intranasal DAILY nortriptyline 25 mg PO BEDTIME omeprazole 20 mg PO DAILY simvastatin 40 mg PO BEDTIME HPI Comments Details: 70-year-old woman with a history of tension headaches and migraines here for 6- monthly follow-up. Doing well with only one mild migraine in last 6 months. Mild headaches 1-2x/wk, using Advil OTC which will relieve headache within 30-60 minutes. No photophobia, sonophobia, nausea or vomiting. No specific triggers identified. Neck pain and stiffness resolved. Some increased fatigue and trouble falling asleep at night. is oncology patient and has some anxiety related to that. She was having daily headache after swimming with neck extended in 12/2022, neck pain and stiffness. Having trouble falling asleep x 10 yrs. Using Alprazolam 0.5 mg hs which is not helping. Has tried Cannabis and Melatonin. No caffeine after morning. Had some lack of focus. Seeing Chiropractor weekly for neck and back. She was getting frequent headaches since 03/2021, she started nortriptyline 10 mg at bedtime which helped initially but had some dizziness and headaches again. She finds some focusing issues with her eyes. She didn't have her headaches triggered by heavy perfume and sometimes by stress. Her suffers from cancer. She has used [id number] medications, and Fiorinal when necessary. She describes the headache is coming on without aura mostly frontal and occipital pressure and throbbing sometimes it nausea but no vomiting. Occasionally, dizziness no photophobia or sonophobia. There is no family history of migraine. [facility] Medical History (Updated 07/15/25 @ 16:13 by Tc Victor MD) Cervical spondylosis LILIYA on CPAP Migraine Social History Patient Tobacco Use Status: Never used Tobacco Review of Systems Const Details: General/Constitutional:? Change in appetitedenies.? Chillsdenies.? Fatigueadmits.? Feverdenies.? Weight gaindenies.? Weight lossdenies. ???Sleep:? Difficulty getting to sleepadmits.? Difficulty maintaining sleepdenies?.? Urge to move legsadmits.? Teeth grindingadmits.? Shouting or Kicking during sleep denies.? Abnormal behavior during sleepdenies.? Excessive sleepadmits.? Snoring admits.? Daytime sleepinessdenies. ???Respiratory:? Shortness of breathadmits.? Chest paindenies.? Coughdenies. ???Cardiovascular:? Chest pain at restdenies.? Chest pain with exertiondenies.? Claudicationdenies .? Dizzinessdenies.? Fluid accumulation in the legsdenies.? Irregular heartbeat denies.? Palpitationsdenies. ???Gastrointestinal:? Abdominal paindenies.? Constipationdenies.? Diarrheadenies.? Difficulty swallowingdenies.? Heartburndenies.? Nauseadenies.? Rectal bleedingdenies. ???Genitourinary:? Frequent urinationdenies.? Urgencydenies.? Incontinenceadmits.? Erectile Dysfunctiondenies. ???Musculoskeletal:? Neck paindenies.? Back paindenies.? Muscle achesdenies.? Painful jointsdenies.? Sciaticadenies.? Weaknessdenies. ???Neurologic:? Difficulty swallowingdenies.? Balance difficultyadmits.? Coordinationnormal.? Difficulty speakingdenies.? Dizzinessadmits.? Faintingdenies.? Gait abnormality denies.? Headacheadmits.? Loss of strengthdenies.? Loss of use of extremity denies.? Low back paindenies.? Memory lossdenies.? Seizuresdenies.? Ticsdenies.? Tingling/NumbnessRight ear to the neck.? Transient loss of visiondenies.? Tremor denies. ???Psychiatric:? Anxietyadmits.? Auditory/visual hallucinationsdenies.? DelusionsAgitation.? Depressed moodadmits.? Stressorsadmits.? Substance abusedenies.? Suicidal thoughtsdenies. Physical Exam Neuro Other: Neurological: Abnormal neurological findings:??Tenderness of the right TM joints.?Mental Status:??alert and oriented X 3,?Normal attention, orientation, memory and affect.?Cranial Nerves:??Pupils are equal, round and reactive to light. Fundoscopy shows normal disc bilaterally. External occular muscles are intact. Visual watson are full, no ptosis. Face is symmetrical, no facial weakness or droop. Facial sensations are normal. Tongue protrudes in midline. Palate elevates symmetrically. Shoulder shrugging is normal..?Motor Examination:??Normal muscle tone, bulk and strength,?No atrophy or fasciculations,?No drift of the extended upper extremities,?Deep tendon reflexes are 2+?,?Plantars are flexor?.?Straight Leg Raising:??90 degrees.?Sensory Exam:??Normal light touch, temperature, pinprick, vibration and joint-position sensations?,?Rhomberg sign is absent.?Coordination:??no ataxia,?no titubation,?krqasq-ai-tbgo, twqk-bxaz-zgcx test and rapid alternating movements were normal.?Gait Exam:??Within normal limits.?Cerebellar Signs:??Zykbly-px-yxmh and gqtx-xo-pcyv is normal,?no dysdiadochokinesia?.?Extrapyramidal System:??No tremor, rigidity with normal facial expressions,?No bradykinesia, no bradyphrenia. Normal arm swing and posture. No propulsion or retropulsion.?Speech:??Normal,?no dysphasia or dysarthria..? Mini Mental Status Exam: Level of Consciousness:??Alert.?Orientation:??Knows correct year, month, date, day and season,?Knows correct city, county and state. Knows correct location and floor.?Registration:??Able to register 3 objects.?Attention:??Serial 7's performed accurately.?Recall:??Able to recall 3 out of 3 objects.?Language:??Normal spontaneous speech, fluency, repetition,naming, comprehension, reading and writing.?Total Score:??30/30.? General Examination: GENERAL APPEARANCE:??normal,?in no acute distress.?HEART:??S1, S2 normal,?no murmurs.?LUNGS:??clear anteriorly and posteriorly.?MUSCULOSKELETAL:??normal.?EXTREMITIES:??no edema.?PSYCH:??alert, oriented,?cognitive function intact,?cooperative with exam.? Assessment & Plan Assessment & Plan (1) Migraine: Comment: CT sinuses normal 12/26 CT brain normal. Code(s): G43.909 - Migraine, unspecified, not intractable, without status migrainosus Category: Medical (2) Tension headache: Code(s): G44.209 - Tension-type headache, unspecified, not intractable Category: Medical (3) Insomnia: Code(s): G47.00 - Insomnia, unspecified Category: Medical Plan Continue current medications. I have given her supply of zolpidem to try for a few days at a time to see if it will help with her insomnia. Medications: New zolpidem 10 mg PO BEDTIME 30 tabs 1RF 30 days Changed From nortriptyline 25 mg PO BEDTIME To nortriptyline 25 mg PO BEDTIME 90 caps 3RF 90 days Coding Level of Care Code Est Pt Level 4 (14542) Diagnoses Migraine G43.909 Tension headache G44.209 Insomnia G47.00
== END 2025-07-15 16:17 | disposition home or self-care (01) ==
LOC: HO.HSM 15:58
PROVIDERS: PCP Internal Medicine; Referring Provider Internal Medicine; Visit Provider Psychiatry & Neurology Neurology
DX: G43.909 Migraine, unspecified, not intractable, without status migrainosus (principal); G44.209 Tension-type headache, unspecified, not intractable; G47.00 Insomnia, unspecified
CPT/HCPCS: 99214

== ENCOUNTER → 2025-07-15 15:57 | Outpatient (BNVA) | payer OTHER, SELFPAY | PROVIDERS: PCP Internal Medicine; Referring Provider Internal Medicine; Visit Provider Psychiatry & Neurology Neurology | DX: M54.2 Cervicalgia (principal); G43.909 Migraine, unspecified, not intractable, without status migrainosus; G44.209 Tension-type headache, unspecified, not intractable; G47.00 Insomnia, unspecified | CPT/HCPCS: 99212 ==

== ENCOUNTER 2025-08-06 09:19 | Outpatient (AMB) | payer OTHER, SELFPAY ==
--- OUTSIDE RECORDS SUMMARY | 2024-03-12 07:00 | XMS_ITS ---
Author Organization [employer] Address [address] [place] [address] Care Team Providers Care Leather Tacker Name Role Phone KAREN CAICEDO MD, CLARITZA Primary Care Provider Kristin Kurtz [phone] REASON FOR VISIT Annual DEGREASER Physical Encounters Encounter Location Date Provider Diagnosis [facility] [employer] [address] [place] [address] 03/12/2024 Kristin Carranza Plan Of Treatment Next Appt Details Provider Name:Kristin redmondjoy, 12/31/2025 11:00:00 AM, [address], [address], [place], [address], Progress Notes * MILY HARRISONDOMINGOOB: [birth year] (70 yo F)Acc No.[id number]:03/12/2024 PROGRESS NOTES Patient: Nacho MANZOCHUCKYMILYKRANTHI Appointment Provider: Joy Carranza M.D. :1955 A ge:69 Y S ex:Female Date:03/12/2024 Address:[address] [address], , [place] Pcp:CLARITZA CAICEDO MD Subjective: * Chief Complaints: * 1 . Annual DEGREASER Physical. * Medical History: Objective: * Vitals: Assessment: Plan: * Treatment: * Images: Billing Information: * Visit Code: * Procedure Codes: * Electronic signature of Becca Carranza MD on 08/06/2025 at 10:37 AM EDT Sign off status: Pending * Appointment Provider: Joy Carranza M.D. Date: 0 03/12/2024 Generated for Dennis zambrano/Cesar/Pepito on: 1 10:37 AM EDT
--- OUTSIDE RECORDS SUMMARY | 2024-05-26 10:20 | XMS_ITS ---
Author Organization [employer] [facility] Address [address] [place] [address] Care Team Providers Care Insurance Examiner Name Role Phone KAREN CAICEDO MD, CLARITZA Primary Care Provider Kristin Kurtz [phone] Allergies Allergen (clinical drug ingredient) Drug/Non Drug Allergy documented on EMR Reaction Allergy Type Onset Date Status Substance with sulfonamide structure and antibacterial mechanism of action (substance) Sulfa Antibiotics Hives Drug Allergy Active REASON FOR VISIT Annual (YELLOW FORM DONE) Encounters Encounter Location Date Provider Diagnosis [facility] [employer] [facility] [address] [place] [address] 05/26/2024 Kristin Carranza Plan Of Treatment Next Appt Details Provider Name:Kristin cedillo, 12/31/2025 11:00:00 AM, [address], [address], [place], [address], Progress Notes * CORWIN HARRISONOB: [birth year] (70 yo F)Acc No.[id number]:05/26/2024 PROGRESS NOTES Patient: KRANTHI BARONE Appointment Provider: Shmuel Carranza M.D. :1955 A ge:69 Y S ex:Female Date:05/26/2024 Address:[address] [facility] [address], , [id number] Pcp:CLARITZA CAICEDO MD Subjective: * Chief Complaints: * 1 . Annual (YELLOW FORM DONE). * Medical History: M astodynia, Major depressive disorder, single episode, unspecified, Menopausal and female climacteric states, Attention-deficit hyperactivity disorder, predominantly hyperactive type, Gastro-esophageal reflux disease without esophagitis, Hyperlipidemia, unspecified, Hormone replacement therapy (postmenopausal), Other seborrheic keratosis, Benign neoplasm of vulva, Lichen sclerosus et atrophicus, Inconclusive mammogram, Postmenopausal bleeding, Abnormal findings on diagnostic imaging of other specified body structures, Polyp of corpus uteri, Disorder of bone density and structure, unspecified, Atrophy of vulva, Mammographic heterogeneous density, bilateral breasts. * Manager Surgery History: G ravida/ Para 0 /0. S exual activity c urrently sexually active. L ast Pap Smear: NIL, NEG HPV, 03/14/17 NEG HRHPV, 01/07/14. M ammogram: 50-75% density, 01/19/23 Unilat Right, 12/29/22 50-75% density, 12/28/21 50- 75% density, 12/10/20 50-75% density, 09/29/19 50-75% density, 07/31/18 Unilat Left 50-75% density, 05/30/17 50-75% density, 05/24/16 50-75% density, 02/10/15, 50-75% density. L MP and menses H yst 09/19/222002. B irth Control: M enopause. M enopause: B clementine at age: [age] C olonoscopy 2 016. B one Density: , 09/11/19, 05/30/172009. G YN HISTORY MISC. María Elena Score Lifetime Risk = 7.4%. * OB History: T otal pregnancies 0 . * Allergies: S ulfa Antibiotics: Hives - Allergy. Objective: * Vitals: Assessment: Plan: * Treatment: * Images: Billing Information: * Visit Code: * Procedure Codes: * Electronic signature of Becca Carranza MD on 08/06/2025 at 10:37 AM EDT Sign off status: Pending * Appointment Provider: Shmuel Carranza M.D. Date: 0 05/26/2024 Generated for Dennis zambrano/Cesar/Shivaitting on: 1 10:37 AM EDT
--- OUTSIDE RECORDS SUMMARY | 2024-09-19 09:20 | XMS_ITS ---
Author Organization [employer] [facility] Address [address] [place] [address] Care Team Providers Care Wheat Farmer Name Role Phone KAREN CAICEDO MD, CLARITZA Primary Care Provider Kristin Kurtz [phone] REASON FOR VISIT Annual (YELLOW FORM DONE) Encounters Encounter Location Date Provider Diagnosis [facility] [employer] [facility] [address] [place] [address] 09/19/2024 Kristin Carranza Plan Of Treatment Next Appt Details Provider Name:Kristin Wiley mamadou, 12/31/2025 11:00:00 AM, [address], [address], [place], [address], Progress Notes * CORWIN HARRISONOB: [birth year] (70 yo F)Acc No.[id number]:09/19/2024 PROGRESS NOTES Patient: KRANTHI BARONE Appointment Provider: Shmuel Carranza M.D. :1955 A ge:69 Y S ex:Female Date:09/19/2024 Address:[address] [place] [address] [address], , [id number] Pcp:CLARITZA CAICEDO MD Subjective: * Chief Complaints: * 1 . Annual (YELLOW FORM DONE). * Medical History: Objective: * Vitals: Assessment: Plan: * Treatment: * Images: Billing Information: * Visit Code: * Procedure Codes: * Electronic signature of Becca Carranza MD on 08/06/2025 at 10:37 AM EDT Sign off status: Pending * Appointment Provider: Shmuel Carranza M.D. Date: 1 11/20/2023 Generated for Dennis zambrano/Cesar/Pepito on: 1 10:37 AM EDT
--- OUTSIDE RECORDS SUMMARY | 2024-10-10 11:00 | XMS_ITS ---
Author Organization [facility] Address [address] [place] [address] Care Team Providers Care Black Studies Professor Name Role Phone Bhakti Garner Primary Care Provider JED Ortiz [phone] REASON FOR VISIT 3 month f/u Encounters Encounter Location Date Provider Diagnosis [facility] [address] [facility] [address] [place] [address] 10/10/2024 JED SEAY Plan Of Treatment Next Appt Details Provider Name:JED SEAY, 08/17/2025 02:15:00 PM, [address] [facility] [address], [place], [address], Progress Notes * Marichuy HARRISONOB: [birth year] (70 yo F)Acc No.[id number]:10/10/2024 Progress Note Patient: Nicole BARONE Provider: Yahaira Seay DPM :1955 A ge:69 Y S ex:Female Date:10/10/2024 Address:[address] [facility] [address] [id number] Pcp:Bhakti Garner Subjective: * Chief Complaints: * 1 . 3 month f/u. * Medical History: Objective: * Vitals: Assessment: Plan: * Treatment: * Billing Information: * Visit Code: * Procedure Codes: * Electronic signature of BRAIN SEAY D.P.M on 08/06/2025 at 10:37 AM EDT Sign off status: Pending * Provider: Yahaira eSay DPM Date: 0 10/10/2024 Generated for Dennis zambrano/Cesar/Shivaitting on: 1 10:37 AM EDT
--- OUTSIDE RECORDS SUMMARY | 2025-01-28 07:30 | XMS_ITS ---
Author Organization [facility] Address [address] [place] [address] Care Team Providers Care Cash Posting Specialist Name Role Phone Bhakti Garner Primary Care Provider JED Ortiz [phone] REASON FOR VISIT 3 month f/u Encounters Encounter Location Date Provider Diagnosis [facility] [address] [place] [address] 2025 JED SEAY Plan Of Treatment Next Appt Details Provider Name:JED SEAY, 08/17/2025 02:15:00 PM, [address] [facility] [address], [place], [address], Progress Notes * Marichuy HARRISONOB: [birth year] (70 yo F)Acc No.[id number]:2025 Progress Note Patient: Nicole BARONE Provider: Yahaira Seay DPM :1955 A ge:70 Y S ex:Female Date:2025 [address]:[facility] [facility] [address] [id number] Pcp:Bhakti Garner Subjective: * Chief Complaints: * 1 . 3 month f/u. * Medical History: Objective: * Vitals: Assessment: Plan: * Treatment: * Billing Information: * Visit Code: * Procedure Codes: * Electronic signature of BRAIN SEAY D.P.M on 08/06/2025 at 10:36 AM EDT Sign off status: Pending * Provider: Yahaira Seay DPM Date: 0 2025 Generated for Dennis zambrano/Cesar/Shivaitting on: 1 10:36 AM EDT
--- NOTE | 2025-08-06 09:22 | MHC.OFFVIS ---
Intake Visit Reasons: Medication discussion Allergies Sulfa (Sulfonamide Antibiotics) Allergy (Mild, Verified 08/06/25 09:27) Hives lisinopril Adverse Reaction (Mild, Verified 08/06/25 09:27) Cough Medication List - Last Reconciled 08/06/25 by Liana Ahmadi CNP alprazolam 0.5 mg PO DAILY PRN clobetasol 0.05% 1 appl topical BID estradiol 10 mcg vaginal 2XW fluoxetine 20 mg PO DAILY fluticasone propionate 50 mcg/actuation (Flonase Allergy Relief) 1 spray intranasal DAILY nortriptyline 25 mg PO BEDTIME 90 days omeprazole 20 mg PO DAILY simvastatin 40 mg PO BEDTIME zolpidem 10 mg PO BEDTIME 30 days HPI Comments Details: 70-year-old woman with a history of tension headaches, migraines, and insomnia with trouble falling asleep for over 10 years. She has tried cannabis, melatonin, and Benadryl in the past which did not help. She takes alprazolam 0.5mg as needed at bedtime which only works some of the time. She does not take caffeine after morning. She tried zolpidem 10mg for three nights which seemed to help and had no significant side effects aside from feeling a little drowsy the next day. She did not take the medication on the fourth night and had trouble sleeping. She took medication the following night, but had side effects of feeling shaky, sweating, and not feeling right, and has not taken medication again. She was taking alprazolam 0.5mg as needed at bedtime which may help some of the time, but has not been helping much more recently. She feels very exhausted during the day. Headaches have been okay with nortriptyline. Her niece with mild MS recently moved in. Infrequent mild migraines. Some mild headaches relieved by Advil OTC within 30-60 minutes. No photophobia, sonophobia, nausea or vomiting. No specific triggers identified. Neck pain and stiffness resolved. She was having daily headache after swimming with neck extended in 12/2022, neck pain and stiffness, was seeing Chiropractor weekly for neck and back. Had some lack of focus. She was getting frequent headaches since 03/2021, she started nortriptyline 10 mg at bedtime which helped initially, but had some dizziness and headaches again. She finds some focusing issues with her eyes. She didn't have her headaches triggered by heavy perfume and sometimes by stress. She has used sokh-xps-jltayip medications, and Fiorinal when necessary. She describes the headache is coming on without aura mostly frontal and occipital pressure and throbbing sometimes with nausea but no vomiting. Occasionally, dizziness no photophobia or sonophobia. There is no family history of migraine. [facility] Medical History (Updated 08/06/25 @ 09:26 by Liana Ahmadi CNP) Cervical spondylosis LILIYA on CPAP Migraine Social History Patient Tobacco Use Status: Never used Tobacco Review of Systems Const Denies chills, Denies daytime sleepiness, Reports difficulty sleeping, Reports fatigue, Denies fever(s), Denies frequent falls, Reports headache(s), Denies increased appetite, Denies poor appetite, Reports snoring, Denies weakness, Denies weight gain and Denies weight loss Eyes Denies loss of vision ENT Denies vertigo, Reports dizziness, Reports headache(s) and Denies neck pain Card Denies chest pain at rest, Denies chest pain with activity, Denies syncope, Denies leg edema, Denies palpitations, Denies dyspnea and Denies dyspnea on exertion Resp Denies cough, Denies dyspnea, Denies dyspnea on exertion and Reports snoring GI Denies abdominal pain, Denies constipation, Denies heartburn, Denies diarrhea and Denies nausea Denies urinary frequency, Denies urinary incontinence and Denies urinary urgency Musc Denies abnormal gait, Denies back pain, Denies myalgias, Denies arthralgias, Denies neck pain, Reports numbness and Reports tingling Neuro Denies abnormal gait, Denies vertigo, Reports dizziness, Denies syncope, Denies frequent falls, Reports headache(s), Denies lack of coordination, Denies loss of vision, Denies memory loss, Reports numbness, Denies Other visual disturbances, Reports restless legs, Denies seizure-like activity, Reports tingling, Denies paresthesias, Denies tremor(s) and Denies weakness Psych Reports anxiety, Reports depression, Denies auditory hallucinations, Denies memory loss and Denies visual hallucinations Endo Reports fatigue and Denies palpitations Physical Exam Const Other: General Appearance:? normal, in no acute distress. Heart:? S1, S2 normal, no murmurs. Lungs:? clear anteriorly and posteriorly. Musculoskeletal:? normal. Extremities:? no edema. Psych:? alert, oriented, cognitive function intact, cooperative with exam. Neuro Other: Abnormal Neurological Findings:?Tenderness of R TM joints.? Mental Status: alert and oriented X 3. Normal attention, orientation, memory, and affect. Cranial Nerves: Pupils are equal, round, and reactive to light. External ocular muscles are intact. Visual watson are full, no ptosis. Face is symmetrical, no facial weakness or droop. Facial sensations are normal. Tongue protrudes in midline. Palate elevates symmetrically. Shoulder shrugging is normal Motor Examination: Normal muscle tone, bulk and strength. No atrophy or fasciculations. No drift of the extended upper extremities. DTR 2+. Plantars are flexor. Sensory Exam: Normal light touch, temperature, pinprick, vibration, and joint-position sensations. Rhomberg sign is absent. Coordination: No ataxia. No titubation. Gait Exam: Within normal limits. Cerebellar Signs: Nbsrpw-sr-zfwv is okay. Extrapyramidal System: No tremor, rigidity with normal facial expressions. No bradykinesia. No bradyphrenia. Normal arm swing and posture. No propulsion or retropulsion. Speech: Normal. Results Reviewed Results Reviewed: CT sinuses normal 12/26 CT brain normal Assessment & Plan Assessment & Plan (1) Migraine: Comment: CT sinuses normal 12/26 CT brain normal. Code(s): G43.909 - Migraine, unspecified, not intractable, without status migrainosus Category: Medical Qualifiers: Migraine type: unspecified Status migrainosus presence: without status migrainosus Intractability: not intractable Qualified Code(s): G43.909 - Migraine, unspecified, not intractable, without status migrainosus (2) Tension headache: Code(s): G44.209 - Tension-type headache, unspecified, not intractable Category: Medical Plan: Continue nortriptyline 25mg 1 capsule at bedtime. (3) Insomnia: Code(s): G47.00 - Insomnia, unspecified Category: Medical Qualifiers: Insomnia type: unspecified Qualified Code(s): G47.00 - Insomnia, unspecified Plan: She did not like how she felt with zolpidem and medication was stopped. Start trazodone 100mg 1/2 - 1 tablet at bedtime as needed for sleep, use/side effects reviewed. Follow up in 4 weeks or sooner as needed. Plan Meds tried: nortriptyline, zolpidem Medications: New trazodone 100 mg PO BEDTIME PRN 30 tabs 1RF sleep 30 days Discontinued zolpidem Discontinued Reason: Doctor's Order 10 mg PO BEDTIME 30 days 30 tabs 1RF Coding Level of Care Code Est Pt Level 4 (73185) Diagnoses Migraine without status migrainosus, not intractable, unspecified migraine type G43.909 Migraine type: unspecified Status migrainosus presence: without status migrainosus Intractability: not intractable Tension headache G44.209 Insomnia, unspecified type G47.00 Insomnia type: unspecified
--- OUTSIDE RECORDS SUMMARY | 2025-08-06 10:37 | XMS_ITS | Patient Health Record ---
Author Organization [facility] Address [address] [place] [address] Care Team Providers Care Boom Stick Worker Name Role Phone KAREN CAICEDO MD, CLARITZA Primary Care Provider U [email or web address] Kristin Carranza Unavailable [phone] Allergies Allergen (clinical drug ingredient) Drug/Non Drug Allergy documented on EMR Reaction Allergy Type Onset Date Status Substance with sulfonamide structure and antibacterial mechanism of action (substance) Sulfa Antibiotics Hives Drug Allergy Active Results Component Value Reference Range Notes Urinalysis Reviewed date:12/25/2024 10:50:23 AM Interpretation: Performing Lab: Notes/Report: PH 6.0 PROTEIN Neg GLUCOSE Neg BLOOD Neg Reason For Referral No Information Medications Medication SIG (Take, Route, Frequency, Duration) Notes Start Date End Date Status Clobetasol Propionate 0.05 % 1 application to affected area Externally ONCE A WEEK, PRN; Duration: 90 DAYS 03/03/2022 Active PROzac 20 MG 1 capsule Orally Onc e a day Active Estradiol Vaginal Cream 0.01% 1 Gram Vaginally Twice a Week; Duration: 90 days 05/07/2023 Active Xanax 0.5 MG 1 tablet Orally Once a night Active Omeprazole 20MG 1 ORAL Once a day 12/25/2012 Active Simvastatin 40 MG 1 tablet in the even ing Orally Once a day Active Curcumin 95 500 MG as directed Orally Active Nortriptyline HCl 25 MG 1 capsule Orally Once a day Active Citracal Calcium+D A ctive Clobetasol Propionate 0.05 % 1 application to affected area Externally ONCE A WEEK; Duration: 90 days 12/25/2024 Active Losartan Potassium 25 MG 1 tablet Orally Once a day Active Estradiol Vaginal Cream 0.01% 1 Gram to the affected area Vaginal/Vulva Twice a week; Duration: 90 Days 12/25/2024 Active Reclast 5 MG/100ML as directed Intravenous Active Social History Tobacco Use: Social History Observation Description Date Details (start date - stop date) Never Smoker NA - NA Sexual History Question Answer Notes Had sex in the past 12 months (vaginal, oral, or anal)? Yes with Men only Prevention strategies discussed: Other Tobacco use other than smoking: Question Answer Notes Are you an other tobacco user? No AUDIT-C (Standard) Question Answer Notes Did you have a drink contain ing alcohol in the past year? Yes How often did you have a dri nk containing alcohol in the past year? 2 to 3 times a week (3 points) How many drinks did you have on a typical day when you were drinking in the past year? 1 or 2 drinks (0 point) How often did you have six o r more drinks on one occasion in the past year? Never (0 point) Points 3 Interpretation Positive Tobacco Control (Standard) Question Answer Notes Tobacco use: Nonsmoker Problems Problem Type SNOMED Code ICD Code Onset Dates Problem Status W/U Status Risk Notes Problem Menopause (909592061) Menopausal and female climacteric states (N95.1) Active confirmed Problem Postmenopausal atrophic vaginitis (66073683) Postmenopausal atrophic vaginitis (N95.2) Active confirmed Problem Postmenopausal bleeding (02039309) Postmenopausal bleeding (N95.0) Active confirmed Problem Age-related osteoporosis (744173509) Age-related osteoporosis without current pathological fracture (M81.0) Active confirmed Problem Localized morphea (040195195) Lichen sclerosus et atrophicus (L90.0) Active confirmed Problem Polyp of corpus uteri (20373034) Polyp of corpus uteri (N84.0) Active confirmed Problem Atrophy of vulva (157079106) Atrophy of vulva (N90.5) Active confirmed Problem Menopause (464024965) Menopausal and female climacteric states (N95.1) Active confirmed Problem Imaging result abnormal (777352010) Abnormal findings on diagnostic imaging of other specified body structures (R93.89) Active confirmed Problem Hyperlipidemia (89069467) Other and unspecified hyperlipidemia (272.4) Active confirmed Major Problem Depressive disorder (97179594) Depressive disorder, not elsewhere classified (311) Active confirmed Major Problem Attention deficit hyperactivity disorder (732415685) Attention deficit disorder of childhood with hyperactivity (314.01) Active confirmed Major Problem Esophageal reflux (204604399) Esophageal reflux (530.81) Active confirmed Major Problem Mastodynia (43003551) Mastodynia (611.71) Active confirmed Diag Problem Menopausal symptom (62165085) Symptomatic menopausal or female climacteric states (627.2) Active confirmed Major Problem Gynecological examination normal (232020613809749) Routine gynecological examination (V72.31) Active confirmed Problem Exercises teaching, guidance, and counseling (002281856) Exercise counseling (V65.41) Active confirmed Diag Problem Screening for malignant neoplasm of colon (316335474) Special screening for malignant neoplasms, colon (V76.51) Active confirmed Major Vital Signs Temperature 97.2 degrees Fahrenheit 12/25/2024 Blood pressure diastolic 84 mm Hg 12/25/2024 Height 63 in 12/25/2024 Blood pressure systolic 120 mm Hg 12/25/2024 Weight 162 lbs 12/25/2024 BMI 28.69 kg/m2 12/25/2024 Encounters Encounter Location Date Provider Diagnosis [address] [place] [address] 12/25/2024 Kristin Carranza Encounter for gynecological examination (general) (routine) without abnormal findings Z01.419 ; Encounter for screening mammogram for malignant neoplasm of breast Z12.31 ; Age-related osteoporosis without current pathological fracture M81.0 ; Lichen sclerosus et atrophicus L90.0 ; Atrophy of vulva N90.5 ; Postmenopausal atrophic vaginitis N95.2 and Dense breasts, unspecified R92.30 Assessments Encounter Date Diagnosis (ICD Code) Assessment Notes Treatment Notes Treatment Clinical Notes Section Notes 12/25/2024 Encounter for gynecological examination (general) (routine) without abnormal findings (ICD-10 - Z01.419) NO MORE PAP TESTS. 12/25/2024 Encounter for screening mammogram for malignant neoplasm of breast (ICD-10 - Z12.31) REGULAR MAMMOGRAMS AND SBE'S WERE RECOMMENDED. 12/25/2024 Age-related osteoporosis without current pathological fracture (ICD-10 - M81.0) DISCUSSED HER LAST BMD RESULTS AND OSTEOPOROSIS AND ITS IMPACT ON HER HEALTH. ADEQUATE CALCIUM AND VIT D. WEIGHT BEARING EXERCISES. OSTEO PRECAUTIONS. CONTINUE CARE WITH [facility] AND [facility]. REPEAT BMD THIS YEAR. 12/25/2024 Lichen sclerosus et atrophicus (ICD-10 - L90.0) DISCUSSED FINDINGS, NO RECURRENCE. CONTINUE MAINTENANCE DOSE,. 12/25/2024 Atrophy of vulva (ICD-10 - N90.5) CONTINUE TWICE WEEKLY APPLICATION OF ESTRADIOL CREAM. 12/25/2024 Postmenopausal atrophic vaginitis (ICD-10 - N95.2) CONTINUE ESTRADIOL CREAM. 12/25/2024 Dense breasts, unspecified (ICD-10 - R92.30) DISCUSSED DENSE BREASTS ON MAMMOGRAM AND ITS IMPLICATIONS. 3D MAMMOGRAMS WERE RECOMMENDED. Plan Of Treatment Pending Test Test Name Order Date Sonohysterogram 05/29/2018 MAMMOGRAM, SCREENING 12/25/2024 MAMMOGRAM, SCREENING 03/27/2018 MAMMOGRAM, SCREENING 01/13/2015 MAMMOGRAM, SCREENING 03/03/2021 MAMMOGRAM, SCREENING 03/03/2022 MAMMOGRAM, SCREENING 03/08/2023 Ultrasound : Sono Hystergram 09/08/2019 Vulvar Biopsy 01/20/2015 ENDOMETRIAL BX 05/29/2018 25OH VITAMIN D 03/22/2023 COMPREHENSIVE METABOLIC PANEL 03/22/2023 N-TELOPEPTIDE CROSS 03/22/2023 PTH, INTACT 03/22/2023 TSH 03/22/2023 BONE DENSITY 12/25/2024 BONE DENSITY 03/14/2017 BONE DENSITY 03/03/2021 BONE DENSITY 03/03/2022 MM Digital Mammo Screening 03/03/2022 MM Digital Mammo Screening 03/03/2021 MM Digital Mammo Screening 12/25/2024 MM Digital Mammo Screening 03/08/2023 Next Appt Details Provider Name:Kristin cedillo, 12/31/2025 11:00:00 AM, [address], [address], [place], [address], Insurance Providers Payer Name Payer Address Payer Phone Subscriber Number Group Number Insured Name Patient Relationship to Insured Coverage Start Date Coverage End Date [employer] [address] [place], [place] [id number] KRANTHI HARRISON Self - patient is the insured Medical (General) History Medical History History ICD Code Mastodynia N64.4 Major depressive disorder, single episod e, unspecified F32.9 Menopausal and female climacteric states N95.1 Attention-deficit hyperactivity disorder , predominantly hyperactive type F90.1 Gastro-esophageal reflux disease without esophagitis K21.9 Hyperlipidemia, unspecified E78.5 Hormone replacement therapy (postmenopau pedro pablo) Z79.890 Other seborrheic keratosis L82.1 Benign neoplasm of vulva D28.0 Lichen sclerosus et atrophicus L90.0 Inconclusive mammogram R92.2 Postmenopausal bleeding N95.0 Abnormal findings on diagnostic imaging of other specified body structures R93.89 Disorder of bone density and structure, unspecified M85.9 Atrophy of vulva N90.5 Mammographic heterogeneous density, bila teral breasts R92.333 Dense breasts, unspecified R92.30 Other specified disorders of bone densit y and structure, multiple sites M85.89 Submucous leiomyoma of uterus D25.0 Leiomyoma of uterus, unspecified D25.9 Other signs and symptoms in breast N64.5 9 Polyp of corpus uteri N84.0 Surgical History Surgery Date(Month/Year) Colonoscopy Bilateral Ear Surgery Bilateral Eye Surgery Tonsillectomy/Adenoidectomy Hysteroscopy Fractional Dialation & Curettage Polypectomy D/C with Dr Alvarado 4th one Right Breast Bx 02/08/23 Hysterectomy 09/19/22 Hospitalization History Reason Date(Month/Year) See Surgical Hx
--- OUTSIDE RECORDS SUMMARY | 2025-08-06 10:37 | XMS_ITS | Clinical Summary ---
Author Organization [facility] Address [address] [place] [address] Care Team Providers Care Fish Net Maker Name Role Phone Bhakti Escalona MD Primary [...] (TEMOVATE) 0.05 % ointment 0 02/13/2024 Active scdtmrkpjs-wzndndw-ta ffeine (FIORINAL) 50-325-40 MG capsule TAKE 1 [...] 93 05/13/2024 2:20 PM EDT Temperature 36.1 C (97 F) 05/13/2024 2:20 PM EDT Respiratory Rate 18 [...] (DEXA Scan) 2022 COVID-19 Vaccine ( season) 2025 03/29/2022, 10/06/2021, 02/10/2021, Additional history exists Influenza Vaccine (#1) 2025 3, 07/25/2022, 07/19/2021, Additional history exists RSV Adult > 60+ Yrs or (1 - 1-dose 75+ series) 01/29/2032 Pneumococcal Vaccine Completed 06/22/2023, 01/21/20 Hepatitis B Vaccines Aged Out No long er eligible based on patient's age to complete this topic RSV Ped < 20 months Aged Out No longe r eligible based on patient's age to complete this topic Care Teams Fish Net Maker Relationship Specialty Start Date End Date Bhakti Escalona MD [address] [place] [address] PCP - General Internal Medicine 05/13/24
--- OUTSIDE RECORDS SUMMARY | 2025-08-06 10:37 | XMS_ITS | Patient Health Record ---
Author Organization [facility] Address [address] [facility] [address] [place] [address] Care Team Providers Care Manufacturing Director Name Role Phone Bhakti Garner Primary Care Provider JED Ortiz Unavailable [phone] Allergies Allergen (clinical drug ingredient) Drug/Non Drug Allergy documented on EMR Reaction Allergy Type Onset Date Status Substance with sulfonamide structure and antibacterial mechanism of action (substance) sulfa drugs (uncoded) Unknown Allergy Active VoSoL HC Unknown Drug Allergy Active lisinopril Lisinopril Unknown Drug Allergy Activ e Mold Unknown Allergy Active Reason For Referral Reason diabetic eval Diagnosis 1 Type 2 diabetes d[place] itus without complication, without long-term current use of insulin (E11.9) Referring Provider First Name Terry Referring Provider Last Name [facility] Referred Organization [facility] Referred Provider JED SEAY Referred Address [address] [facility] [address],[place], [place],[address], Referred Provider Specialty Podiatry Referral Priority Routine Medications Medication SIG (Take, Route, Frequency, Duration) Notes Start Date End Date Status Simvastatin 40 MG 1 tablet in the evening Orally Once a day Active PROzac 20 MG 1 capsule Orally Onc e a day Active Nortriptyline HCl 25 MG 1 capsule Orally Once a day Active Omeprazole 20 MG 1 capsule 30 minutes before morning meal Orally Once a day Active ALPRAZolam 0.5 MG 1 tablet Orally Once a day Active Reclast 5 MG/100ML as directed Intravenous Not-Taking Calcium Citrate + D Active Claritin 10 MG 1 tablet Orally Once a day Not-Taking Estradiol 0.1 MG/GM as directed Vaginal Not-Taking Turmeric 500 MG as directed Orally 1000MG Active Losartan Potassium 50 MG 1 tablet Orally Once a day Not-Taking Problems Problem Type SNOMED Code ICD Code Onset Dates Problem Status W/U Status Risk Notes Problem Plantar fascial fibromatosis (66548433) Plantar fasciitis, bilateral (M72.2) Active confirmed Problem Type II diabetes mellitus without complication (044935570) Type 2 diabetes mellitus without complication, without long-term current use of insulin (E11.9) Active confirmed Problem Hyperglycemia due to type 2 diabetes mellitus (710187877956741) Type 2 diabetes mellitus with hyperglycemia, without long-term current use of insulin (E11.65) Active confirmed Problem Postmenopausal osteoporosis (211160857) Postmenopausal osteoporosis (M81.0) Active confirmed Vital Signs Heart Rate 85 /min 05/15/2025 Temperature 96.3 degrees Fahrenheit 05/15/2025 Respiratory Rate 16 /min 05/15/2025 Height 5ft 3in in 05/15/2025 Weight 167.5 lbs 05/15/2025 BMI 29.67 kg/m2 05/15/2025 Encounters Encounter Location Date Provider Diagnosis [facility] [address] [address] 10/29/2024 JED SEAY Type 2 diabetes mellitus with hyperglycemia, without long-term current use of insulin E11.65 ; Hallux limitus, right M20.5X1 and Postmenopausal osteoporosis M81.0 [facility] [address] [address] 02/09/2025 JED SEAY Type 2 diabetes mellitus with hyperglycemia, without long-term current use of insulin E11.65 ; Hallux limitus, right M20.5X1 and Postmenopausal osteoporosis M81.0 [facility] [address] [address] 05/15/2025 JED SEAY Type 2 diabetes mellitus with hyperglycemia, without long-term current use of insulin E11.65 ; Plantar fasciitis, bilateral M72.2 ; Postmenopausal osteoporosis M81.0 ; Pain in right foot M79.671 and Pain in left foot M79.672 Assessments Encounter Date Diagnosis (ICD Code) Assessment [...] and symptoms of neuropathy with the patient. 02/09/2025 Type 2 diabetes mellitus with hyperglycemia, without [...] and symptoms of neuropathy with the patient. 05/15/2025 Plantar fasciitis, bilateral (ICD-10 - M72.2) This is an outpatient visit for evaluation and management of an established patient, which required appropriate review of pertinent medical history, review of all previous records, and examination and decision-making. Time was 30 minutes spent in review of all these facets including face to face discussion with the patient regarding my findings and in discussion of a current and future treatment plan. Discussed the pathology of plantar fasciitis, what that means and how it affects the patient's ADL. Reviewed stretching and icing exercises with the patient, handout dispensed, and patient instructed to perform twice daily. Recommended starting a course of NSAIDs with the patient. I discussed proper shoe gear with the patient and recommended over the counter inserts. I also recommended she avoid barefoot walking. I encouraged the patient to contact my office if she sees no improvement after the next 2 months. She is in agreement with this plan. 05/15/2025 Type 2 diabetes mellitus with hyperglycemia, without [...] and symptoms of neuropathy with the patient. 05/15/2025 Postmenopausal osteoporosis (ICD-10 - M81.0) I discussed her osteoporosis diagnosis. We discussed she is a higher risk of developing stress fractures in the feet. I discussed the signs and symptoms of a stress fracture. We discussed this does not have to be activity dependent. I recommended she call the office with any new onset pain or swelling in the feet. 02/09/2025 Hallux limitus, right (ICD-10 - M20.5X1) She changed her shoes and has not seen the callus return. 10/29/2024 Hallux limitus, right (ICD-10 - M20.5X1) [...] onset pain or swelling in the feet. 02/09/2025 Postmenopausal osteoporosis (ICD-10 - M81.0) I discussed her osteoporosis diagnosis. We discussed she is a higher risk of developing stress fractures in the feet. I discussed the signs and symptoms of a stress fracture. We discussed this does not have to be activity dependent. I recommended she call the office with any new onset pain or swelling in the feet. 05/15/2025 Pain in right foot (ICD-10 - M79.671) 05/15/2025 Pain in left foot (ICD-10 - M79.672) Plan Of Treatment Next Appt Details Provider Name:JED SEAY, 08/17/2025 02:15:00 PM, [address], [address], Insurance Providers Payer Name Payer Address Payer Phone Subscriber Number Group Number Insured Name Patient Relationship to Insured Coverage Start Date Coverage End Date [facility] [address] [place] [address] [id number] Nicole Mccracken Self - patient is the [...] + COVID 2020 COVID vaccinated X 3 (Pfizer) Surgical History Surgery Date(Month/Year) tonsillectomy and adenoidectomy eye surgery plastic surgery-ears 4 D&C wisdom teeth extraction hysterectomy Hospitalization History Reason Date(Month/Year) hysterectomy plastic surgery- ears tonsillectomy and adenoidectomy eye surgery
--- OUTSIDE RECORDS SUMMARY | 2025-08-06 10:37 | XMS_ITS | Clinical Summary ---
Author Organization [facility] [address] [place] [address] [address] [place] [address] Phone Care Team Providers Care Wire Stripper Name Role Phone Terry Garnett MD Primary Care Provider Allergies Active Allergy Reactions Criticality Noted Date Comments Hydrocortisone-Acetic Acid Rash Low 08/01/2011 Lisinopril Cough,Unknown Low 01/03/2017 Mold Headache,Other 08/21/2023 Sulfa (Sulfonamide Antibiotics) 04/27/2009 Other Reaction(s): Hives/Urticaria, Rash/Dermatitis Medications estradioL (ESTRACE) 0.01 % (0.1 mg/gram) vaginal cream 1 Gram Vaginally Twice a Week for 90 Days 05/07/20 23 Active nortriptyline (PAMELOR) 25 mg capsule Take 1 capsule (25 mg total) by mouth at bedtime. 05/09/20 24 Active blood-glucose meter kit Use to check [...] bedtime. Via full face mask/ [employer] Active simvastatin (ZOCOR) 40 mg tablet TAKE 1 TABLET BY MOUTH AT BEDTIME 90 tablet 1 02/10/20 25 Active omeprazole (PriLOSEC) [address] capsule Take 1 capsule (20 mg total) by mouth 1 (one) time each day. 90 capsule 1 02/10/20 25 Active meclizine (ANTIVERT) 12.5 mg tablet Take 1 tablet (12.5 mg total) by mouth 3 (three) times a day if needed for dizziness. 30 tablet 05/21/20 25 Active loratadine (CLARITIN REDITABS) 10 mg dispersible tablet Take 1 tablet (10 mg total) by mouth 1 (one) time each day. Active clobetasoL (TEMOVATE) 0.05 % ointment Apply topically 2 (two) times a day. 12/26/19 25 Active losartan (Cozaar) 25 mg tablet Take 1 tablet (25 mg total) by mouth 1 (one) time each day. 90 each 3 06/03/20 25 026 Active ALPRAZolam (XANAX) 0.5 mg tablet Take 1 tablet (0.5 mg total) by mouth 3 (three) times a day if needed for anxiety. Max Daily Amount: 1.5 mg 56 tablet 06/15/20 25 Active FLUoxetine (PROzac) 20 mg capsule TAKE 1 CAPSULE BY MOUTH ONCE A DAY 90 capsule 1 07/27/20 25 Active FLUoxetine (PROzac) 20 mg capsule TAKE 1 CAPSULE BY MOUTH ONCE A DAY 90 capsule 04/30/20 25 025 Discontinued Active Problems Problem Noted Date Diagnosed Date Osteoporosis 03/25/2024 Fatty liver 02/26/2024 Palpitations 12/15/2022 Osteopenia 11/03/2022 Type 2 diabetes mellitus wit hout complication, without long-term current use of insulin ([facility] V24, [facility] V28) 07/20/2021 Assessment & Plan (06/03/2025 1:41 PM EDT): Orders: CBC and differential; Future Comprehensive metabolic panel; Future Hemoglobin A1c; Future Lipid panel with reflex to direct LDL; Future Insomnia 06/04/2019 Adjustment disorder with depressed mood 11/08/19 17 Generalized anxiety disorder 11/08/2016 Assessment & Plan (06/03/2025 1:41 PM EDT): HTN (hypertension) 03/10/2015 Assessment & Plan (06/03/2025 1:41 PM EDT): Benign neoplasm of colon 06/19/2012 Overview (08/28/2024): CN + snare 06/19/2012: 12 mm sigmoid colon polyp. Tubular adenoma and hyperplastic. CN 2015: LRA x 2; next CN 2020. Attention deficit hyperactivity disorder (ADHD) 05/10/2011 Assessment & Plan (06/03/2025 1:41 PM EDT): GERD (gastroesophageal reflux disease) 0 Overview (08/28/2024): Controlled with ppi daily. Sleep apnea 06/24/2009 Overview (08/28/2024): Followed by dr phan sleep study Redone 2016mod sleep apnea Mostly in REM and supine [facility] Polysomnogram PAP treatment study. Date [...] Controlled with ppi daily. Pure hypercholesterolemia 04/27/2009 Assessment & Plan (06/03/2025 1:41 PM EDT): Resolved Problems Problem Noted Date Diagnosed Date Resolved Date Impaired fasting glucose 04/18/2014 Encounters Date Type Department Care Team Description 07/08/2025 Telephone Pulmonology - [place] [address] [place] [address] Sidney Walker MA 06/03/2025 11:00 AM EDT Office Visit Adult Medicine [address] [phone] Terry Garnett MD Encounter for routine adult health examination with abnormal findings (Primary Dx); Type 2 diabetes mellitus without complication, without long-term current use of insulin (CMS/HCC V24, CMS/HCC V28); Generalized anxiety disorder; Primary hypertension; Pure hypercholesterolemia; Attention deficit hyperactivity disorder (ADHD), unspecified ADHD type 05/25/2025 1:24 PM EDT - 05/25/2025 11:59 PM EDT Hospital Encounter [facility] [address] [place] [phone] Hardy Mercer MD Age-related osteoporosis without current pathological fracture (Primary Dx) Discharge Disposition: Home or Self Care 05/21/2025 12:45 PM EDT Office Visit Adult Medicine [address] [phone] Svetlana Mccarty PA Generalized anxiety disorder with panic attacks (Primary Dx); Encounter for long-term (current) use of high-risk medication; Vertigo 05/14/2025 Telephone Endocrinology [address] [phone] Hardy Mercer MD from Last 3 Months Immunizations Immunization Administration Dates Next Due Influenza Quadravalent, MDCK [...] valent (Pneumovax 23) 2yo and older 01/20/2022 RSV, bivalent, protein subun it RSVpreF, 0.5mL, Preservative Free (Arexvy) 50yo and older 11/23/2023 Td Tetanus diptheria (Tdvax) 7yo and older [...] HISTORICAL COLONOSCOPY; COMMENT: 5 mm diminutive polyps 2: tubular adenoma x 1; SSA x 1. [...] you may not have stable housing? No 06/03/2025 Food Access & Nutrition Answer Date Rec orded Do you have access to a vari ety of food including fruits and vegetables? Yes 06/03/2025 Access to Healthcare Answer Date Record ed Within the last 3 months, ho w many times did you visit the emergency department for your medical care? 2 06/03/2025 Health Literacy Answer Date Recorded How often do you need to hav e someone help you when you read instructions, pamphlets, or other written material from your doctor or pharmacy? Never 06/03/2025 Caregiver: How often do you need to have someone help you when you read instructions, pamphlets, or other written material from your doctor or pharmacy? Not on file 06/03/2025 Financial Risk Answer Date Recorded How hard is it for you to pa y for the very basics like food, housing, medical care, and air conditioning / heating? Not very hard 06/03/2025 Transportation Answer Date Recorded Has the lack of transportati on kept you from meetings, work, or from getting things needed for daily living? No Has the lack of transportati on kept you from medical appointments or from getting medications? No 06/03/2025 Social Isolation Answer Date Recorded How often do you feel lonely or isolated from those around you? Sometimes 06/03/2025 Food Risk Answer Date Recorded Within the past 12 months we worried whether our food would run out before we got money to buy more. Never true 06/03/2025 Within the past 12 months th e food we bought just didn't last and we didn't have money to get more. Never true 06/03/2025 Dependent Care Answer Date Recorded Do you need help finding or paying for care for your loved ones. For example, children's lunchroom supervisor or elderly care for an older adult? No 06/03/2025 Education Answer Date Recorded Do you think completing more education or training, like finishing a GED, going to college, or learning a trade, would be helpful for you? Yes 06/03/2025 Employment and Income Answer Date Recor ded During the last four weeks, have you been actively looking for work? No 06/03/2025 Living Situation Answer Date Recorded What is your living situation? Unrecognized valu e 06/03/2025 Comments No Sex and Gender Information Value Date Recorded Sex Assigned at Not on file Legal Sex Female 2:11 PM EST Gender Identity Not on file Sexual Orientation Not on file Obstetrics History Last Filed Vital Signs Vital Sign Reading Time Taken Comments Blood Pressure 129/69 06/03/2025 10:51 AM EDT Pulse 77 06/03/2025 10:51 AM EDT Temperature 36.8 C (98.2 F) 06/03/2025 10:51 AM EDT Respiratory Rate 16 06/03/2025 10:5 1 AM EDT Oxygen Saturation 97% 06/03/2025 10: 51 AM EDT Inhaled Oxygen Concentration - - Weight 74.8 kg (164 lb 12.8 oz) 025 10:51 AM EDT Height 157.5 cm (5' 2 ) 06/03/2025 10:5 1 AM EDT Body Mass Index 30.14 06/03/2025 10:51 AM EDT Plan of Treatment Upcoming Encounters Date Type Department Care Team (Late st Contact Info) Description 08/11/2025 1:30 PM EST Office Visit Adult Medicine [address] [phone] Gab Kerns, PA [address] [place] [phone] 08/13/2025 9:15 AM EST Office Visit Pulmonology - [address] [place] [phone] Radha Portillo MD [address] [place] [phone] 09/04/2025 12:00 PM EST Office Visit Adult Medicine [address] [phone] Terry Garnett MD [address] [place] [address] 11/17/2025 10:30 AM EST Office Visit Adult Medicine [address] [phone] Gab Kerns, PA [address] [place] [phone] 12/23/2025 10:40 AM EDT Office Visit [address] [phone] Joyce Davila PA [address] [place] [address] 03/19/2026 11:00 AM EDT Office Visit Adult Medicine [address] [phone] Terry Garnett MD [address] [place] [address] Health Maintenance Due Date Last Done Comments Diabetes: Annual Foot Exam 01/13/2025 01/14/2024 COVID-19 Vaccine ( season) 2025 09/04/2023, 07/13/2022, 03/29/2022, Additional history exists Influenza Vaccine (#1) 2025 , 06/22/2023, 07/25/2022, Additional history exists Diabetes: Blood Sugar Control Test (HGBA1C) 11/21/2025 05/21/2025, 01/12/2025, 02/26/2024, Additional history exists Diabetes: Annual Urine Albumin-Creatinine Ratio (uACR) 01/12/2026 01/12/2025, 02/26/2024 Diabetes: Annual Retina Eye Exam 01/13/2026 01/13/2025, 12/12/2023 Diabetes: Annual GFR (Glomerular Filtration Rate) 05/21/2026 05/21/2025, 01/12/2025, 02/26/2024, Additional history exists Hypertension/CHF/CAD Annual BMP Blood Test 05/21/2026 05/21/2025, 01/12/2025, 02/26/2024, Additional history exists Falls Risk Assessment 06/03/2026 06/03/2025 , 05/25/2025, 09/08/2024 Medicare Annual Wellness Visit 06/03/2026 06/03/2025 Social Influencers of Health Screening 06/03/2026 06/03/2025 Colorectal Cancer Screening: Colonoscopy 02/23/2027 02/23/2022 Breast Cancer Screening 04/18/2027 04/18/2025, 04/18 DTaP,Tdap,and Td Vaccines (3 - Td or Tdap) 08/01/2029 08/01/2019, 06/24/2009 Cholesterol Screening (Lipid Panel) 05/21/2030 05/21/2025, 01/12/2025, 02/26/2024, Additional history exists Osteoporosis Screening (Bone Density Screening) 01/15/2035 01/15/2025, 11/03/2022 Zoster Vaccines Discontinued 03/04/2019 Pneumococcal Vaccine: 50+ Years Completed 06/22/2023, 01/20/2022 RSV Immunization Adult Patients Completed 11/23/2023 Hepatitis C Screening Completed 02/26/2024 Depression Screening Completed 06/03/2025 HIB Vaccines Aged Out No longer eligi [...] age to complete this topic Meningococcal B Vaccine Aged Out No l onger eligible based on patient's age to complete this topic RSV Immunization Patients Under 20 months Aged Out No longer eligible based on patient's age to complete this topic Varicella Vaccines Aged Out No longer eligible based on patient's age to complete this topic Procedures Procedure Name Priority Date/Time Associated Diagnosis Comments DRUG ABUSE SCREEN EXPANDED WITH REFLEX CONFIRMATION, URINE Routine 05/21/2025 1:39 PM EDT Encounter for long-term (current) use of high-risk medication MICROALBUMIN CREATININE URINE RATIO Routine 05/21/2025 9:57 AM EDT Encounter for screening mammogram for malignant neoplasm of breast Type 2 diabetes mellitus without complication, without long-term current use of insulin ([facility] V24, [facility] V28) Obstructive sleep apnea syndrome Pure hypercholesterolemia Primary hypertension Depression, unspecified depression type Arthralgia, unspecified joint Concern about memory Age-related osteoporosis without current pathological fracture Fatty liver Generalized anxiety disorder Osteopenia, unspecified location LIPID PANEL WITH REFLEX TO DIRECT LDL Routine 05/21/2025 9:57 AM EDT Encounter for screening mammogram for malignant neoplasm of breast Type 2 diabetes mellitus without complication, without long-term current use of insulin ([facility] V24, [facility] V28) Obstructive sleep apnea syndrome Pure hypercholesterolemia Primary hypertension Depression, unspecified depression type Arthralgia, unspecified joint Concern about memory Age-related osteoporosis without current pathological fracture Fatty liver Generalized anxiety disorder Osteopenia, unspecified location Low vitamin D level History of vitamin D deficiency COMPREHENSIVE METABOLIC PANEL Routine 05/21/2025 9:57 AM EDT Encounter for screening mammogram for malignant neoplasm of breast Type 2 diabetes mellitus without complication, without long-term current use of insulin ([facility] V24, [facility] V28) Obstructive sleep apnea syndrome Pure hypercholesterolemia Primary hypertension Depression, unspecified depression type Arthralgia, unspecified joint Concern about memory Age-related osteoporosis without current pathological fracture Fatty liver Generalized anxiety disorder Osteopenia, unspecified location Low vitamin D level History of vitamin D deficiency HEMOGLOBIN A1C Routine 05/21/2025 9:57 AM EDT Encounter for screening mammogram for malignant neoplasm of breast Type 2 diabetes mellitus without complication, without long-term current use of insulin ([facility] V24, [facility] V28) Obstructive sleep apnea syndrome Pure hypercholesterolemia Primary hypertension Depression, unspecified depression type Arthralgia, unspecified joint Concern about memory Age-related osteoporosis without current pathological fracture Fatty liver Generalized anxiety disorder Osteopenia, unspecified location Low vitamin D level History of vitamin D deficiency MG MAMMO DIGITAL DIAGNOSTIC BILAT Routine 04/18/2025 3:18 PM EDT BD BONE DENSITY DXA AXIAL SKELETON Routine 01/15/2025 8:46 AM EDT Osteopenia, unspecified location MICROALBUMIN CREATININE URINE RATIO Routine 01/12/2025 1:32 PM EDT Type 2 diabetes mellitus without complication, without long-term current use of insulin ([facility] V24, [facility] V28) HEPATITIS C SCREENING Routine 02/26/2024 DIABETES FOOT EXAM Routine 01/14/2024 DIABETES EYE EXAM Routine 12/12/2023 COLONOSCOPY Routine 02/23/2022 from Last 3 Months or Most Recently Relevant to Health Maintenance Results * Drug abuse screen expanded with reflex confirmation, urine (05/21/2025 1:39 PM EDT) Amphetamine Screen, Ur Negative Negative LAB CHEMISTRY METHOD 05/21/2025 5:29 PM EDT [facility] Comment:Certain OTC medicati ons containing ephedrine, phenylephrine, pseudoephedrine and phenylpropanolamine can cause false positive results. Barbiturate Screen, Ur Negative Negative LAB CHEMISTRY METHOD 05/21/2025 5:29 PM EDT [facility] Benzodiazepine Screen, Ur Negative Negative LAB CHEMISTRY METHOD 05/21/2025 5:29 PM EDT [facility] Cocaine Screen, Ur Negative Negative [facility] Opiate Screen, Ur Negative Negative LAB CHEMISTRY METHOD 05/21/2025 5:29 PM [facility] Cannabinoid (THC) Screen, Ur Negative Negative LAB CHEMISTRY METHOD 05/21/2025 5:29 PM T [facility] Comment:Specimens from patie nts taking pantoprazole sodium (Protonix) have been shown to produce false positive results. Fentanyl, Ur Negative Negative LAB CHEMISTRY METHOD 05/21/2025 5:[facility] Oxycodone Screen, Ur Negative Negative LAB CHEMISTRY METHOD 05/21/2025 5:29 PM [facility] Urine Urine specimen obtained by clean catch procedure / Unknown Non-blood Collection / Unknown 05/21/2025 1:39 PM EDT 05/21/2025 1:39 PM EDT Narrative [facility] - 05/21/2025 5:29 PM EDT Assay cutoffs: Amphetamines 1000 ng/mL Barbiturates 200 ng/mL Benzodiazepines 200 ng/mL Cocaine 300 ng/mL Fentanyl 1 ng/mL Opiates 300 ng/mL Oxycodone 100 ng/mL THC 50 ng/mL Semi-quantitative assay for screening purposes only. Unconfirmed screening result should not be used for non-medical purposes. *POSITIVE RESULTS ARE AUTOMATICALLY SENT FOR ALTERNATE METHOD CONFIRMATION* Svetlana ANSARI LAB URINE ORDERABLES Final Resul t Performing Organization Address City/[facility]/ZIP Co de Phone Number [facility] [address] [place] [address], [place] [phone] * (ABNORMAL) Lipid panel with reflex to direct LDL (05/21/2025 9:57 AM EDT) Cholesterol 187 0 - 200 mg/dL LAB CHEMISTRY METHOD 05/21/2025 1:46 PM EDT [facility] Triglycerides 187(H) 0 - 150 mg/dL LAB CHEMISTRY METHOD 05/21/2025 1:46 PM EDT [facility] HDL 54 >=40 mg/dL LAB CHEMISTRY METHOD 05/21/2025 1:46 PM EDT [facility] LDL Calculated 96 0 - 100 mg/dL LAB CHEMISTRY METHOD 05/21/2025 1:46 PM EDT [facility] Comment:Estimated LDL Calcul ated using equation: Total cholesterol - HDL cholesterol - (Triglycerides/5) VLDL Cholesterol Toni 37.4 mg/dL LAB CHEMISTRY METHOD 05/21/2025 1:46 PM EDT [facility] Non HDL Chol. (LDL+VLDL) 133 <145 mg/dL LAB CHEMISTRY METHOD 05/21/2025 1:46 PM EDT [facility] Chol/HDL Ratio 3.5 0.0 - 4.4 LAB CHEMISTRY METHOD 05/21/2025 1:46 PM EDT [facility] Blood Venous blood specimen / Unknown Venipuncture / Unknown 05/21/2025 9:57 AM EDT 05/21/2025 9:57 AM EDT Gab ANSARI LAB BLOOD ORDERABLES Kavya l Result Performing Organization Address City/[facility]/ZIP Co de Phone Number [facility] [address] [place] [address], [place] [phone] * Microalbumin creatinine urine ratio (05/21/2025 9:57 AM EDT) Only the most recent of2 resultswithin the time period is included. Creatinine, Urine <13.0 mg/dL LAB CHEMISTRY METHOD 05/21/2025 2:02 PM EDT [facility] Comment:Results verified by repeat testing Microalb, Ur <5.0 0.0 - 29.0 mg/L LAB CHEMISTRY METHOD 05/21/2025 2:02 PM EDT [facility] Microalb/Creat Ratio LAB CHEMISTRY METHOD 05/21/2025 2:02 PM EDT [facility] Comment:Concentrations outsi de detection limits, unable to calculate ratio. Urine Urine specimen obtained by clean catch procedure / Unknown Non-blood Collection / Unknown 05/21/2025 9:57 AM EDT 05/21/2025 9:57 AM EDT Gab ANSARI LAB URINE ORDERABLES Kavya l Result [facility] [address] [place] [address], * (ABNORMAL) Hemoglobin A1c (05/21/2025 9:57 AM EDT) Hemoglobin A1C 6.7(H) <6.5 % LAB CHEMISTRY METHOD 05/21/2025 1:28 PM EDT [facility] Mean Bld Glu Estim. 146 mg/dL LAB CHEMISTRY METHOD 05/21/2025 1:28 PM EDT [facility] Blood Venous blood specimen / Unknown Venipuncture / Unknown 05/21/2025 9:57 AM EDT 05/21/2025 9:57 AM EDT Gab ANSARI LAB BLOOD ORDERABLES Kavya l Result [facility] [address] [place] [address], [place] [phone] * (ABNORMAL) Comprehensive metabolic panel (05/21/2025 9:57 AM EDT) Sodium 134 133 - 145 mmol/L LAB CHEMISTRY METHOD 05/21/2025 1:46 PM [facility] Potassium 4.1 3.5 - 5.5 mmol/L LAB CHEMISTRY METHOD 05/21/2025 1:46 PM [facility] Chloride 100 96 - 110 mmol/L LAB CHEMISTRY METHOD 05/21/2025 1:46 PM [facility] CO2 27 21 - 32 mmol/L LAB CHEMISTRY METHOD 05/21/2025 1:46 PM [facility] Anion Gap 7 3 - 11 LAB CHEMISTRY METHOD 05/21/2025 1:46 PM [facility] Glucose 125(H) 70 - 100 mg/dL LAB CHEMISTRY METHOD 05/21/2025 1:46 PM [facility] BUN 14 5 - 25 mg/dL LAB CHEMISTRY METHOD 05/21/2025 1:46 PM [facility] Creatinine 0.97 0.50 - 1.10 mg/dL LAB CHEMISTRY METHOD 05/21/2025 1:46 PM [facility] eGFR 64 >=60 mL/min/1. 73m2 LAB CHEMISTRY METHOD 05/21/2025 1:46 PM [facility] Comment:Calculation based on the Chronic Kidney Disease Epidemiology Collaboration (CKD-EPI) equation refit without adjustment for race. BUN/Creatinine Ratio 14.4 LAB CHEMISTRY METHOD 05/21/2025 1:46 PM [facility] Calcium 9.6 8.5 - 10.5 mg/dL LAB CHEMISTRY METHOD 05/21/2025 1:46 PM [facility] AST (SGOT) 31 10 - 42 unit/L LAB CHEMISTRY METHOD 05/21/2025 1:46 PM EDT [facility] ALT (SGPT) 51 10 - 60 unit/L LAB CHEMISTRY METHOD 05/21/2025 1:46 PM EDT [facility] Alkaline Phosphatase 50 42 - 121 unit/L LAB CHEMISTRY METHOD 05/21/2025 1:46 PM EDT [facility] Total Protein 7.4 6.0 - 8.0 g/dL LAB CHEMISTRY METHOD 05/21/2025 1:46 PM EDT [facility] Albumin 4.2 3.2 - 5.0 g/dL LAB CHEMISTRY METHOD 05/21/2025 1:46 PM EDT [facility] Total Bilirubin 0.6 0.0 - 1.4 mg/dL LAB CHEMISTRY METHOD 05/21/2025 1:46 PM EDT [facility] Blood Venous blood specimen / Unknown Venipuncture / Unknown 05/21/2025 9:57 AM EDT 05/21/2025 9:57 AM EDT Gab ANSARI LAB BLOOD ORDERABLES Kavya dillon Result [facility] [address] [place] [address], * MG Mammo Digital Diagnostic bilat (04/18/2025 3:18 PM EDT) Anatomical Region Laterality Modality Breast Bilateral Mammography Historical Provider MD ZUNIGA BI PROCEDURES Final R esult * BD Bone Density DXA Axial Skeleton (01/15/2025 8:46 AM EDT) Anatomical Region Laterality Modality Wrist, Hip, L-spine Bone Densito metry 01/15/2025 8:58 AM EDT Impressions 01/15/2025 8:59 AM EDT 1. Osteopenia. 2. FRAX analysis yields a 10-year probability of major osteoporotic fracture of 22.0% and a 10-year probability of hip fracture of 4.6%. Code 87211 -------- FINAL REPORT -------- Dictated By: Chad Davis Dictated Date: 01/15/2025 08:58 ET Assigned Physician: Chad Davis Reviewed and Electronically Signed By: Chad Davis Signed Date: 01/15/2025 08:59 ET Workstation ID: [id number] Transcribed By: Self Edit Transcribed Date: 01/15/2025 08:58 ET Narrative 01/15/2025 8:59 AM EDT HISTORY: The patient is a 69-year-old postmenopausal female with clinical concern for metabolic bone disease. FINDINGS: Dual energy x-ray absorptiometry of the lumbar spine and femurs is performed. The mean bone mineral density at L1-L4 is 0.977 gm/cm2 which is 82% of that of young normals and 95% of that of age matched controls. This yields a T-score of -1.7 and a Z-score of -0.4 which is diagnostic of osteopenia. The mean bone mineral density of the femurs bilaterally is 0.920 gm/cm2 which is 91% of that of young normals and 106% of that of age matched controls. This yields a T-score of -0.7 and a Z-score of 0.4 and there is therefore no evidence of osteoporosis or osteopenia here. However, the T-score of the right femoral neck is -2.4 and that of the left femoral neck is -2.4 which is diagnostic of osteopenia. Procedure Note Chad Davis MD - 01/15/2025 HISTORY: The patient is a 69-year-old postmenopausal female with clinicalconcern for metabolic bone disease. FINDINGS: Dual energy x-ray absorptiometry of the lumbar spine and femursis performed. The mean bone mineral density at L1-L4 is 0.977 gm/cm2 whichis 82% of that of young normals and 95% of that of age matched controls.This yields a T-score of -1.7 and a Z-score of -0.4 which is diagnostic ofosteopenia. The mean bone mineral density of the femurs bilaterally is 0.920 gm/ba2feemz is 91% of that of young normals and 106% of that of age matchedcontrols. This yields a T-score of -0.7 and a Z-score of 0.4 and there istherefore no evidence of osteoporosis or osteopenia here. However, theT-score of the right femoral neck is -2.4 and that of the left femoralneck is -2.4 which is diagnostic of osteopenia. IMPRESSION: 1. Osteopenia. 2. FRAX analysis yields a 10-year probability of major osteoporoticfracture of 22.0% and a 10-year probability of hip fracture of 4.6%. Code 85758 -------- FINAL REPORT -------- Dictated By: Chad Davis Dictated Date: 01/15/2025 08:58 ET Assigned Physician: Chad Davis Reviewed and Electronically Signed By: Chad Davis Signed Date: 01/15/2025 08:59 ET Workstation ID: [id number] Transcribed By: Self Edit Transcribed Date: 01/15/2025 08:58 ET Result [facility] ANSARI IMG DXA PROCEDURES Final Result * Hepatitis C Screening (02/26/2024) [facility] Hepatitis C Screening abstracted Result [facility] HEALTH MAINTENANCE Final Result * Diabetes Foot Exam (01/14/2024) [facility] Diabetes: Annual Foot Exam abstracted Result [facility] HEALTH MAINTENANCE Final Result * Diabetes Eye Exam (12/12/2023) [facility] Diabetes: Annual Retina Eye Exam abstracted Result [facility] Provider HEALTH MAINTENANCE Final Result * Colonoscopy (02/23/2022) [facility] Colonoscopy abstracted, no interpretation Anatomical Region Laterality Modality Other Result [facility] Provider HEALTH MAINTENANCE Final Result from Last 3 Months or Most Recently Relevant to Health Maintenance Insurance MEDICARE [facility] Care Teams Wire Stripper Relationship Specialty Start Date End Date Terry Garnett MD [address] [place] [id number] PCP - General Internal Medicine 01/14/25
== END 2025-08-06 09:44 | disposition home or self-care (01) ==
LOC: HO.HSM 09:19
PROVIDERS: PCP Internal Medicine; Visit Provider Registered Nurse
DX: G43.909 Migraine, unspecified, not intractable, without status migrainosus (principal); G44.209 Tension-type headache, unspecified, not intractable; G47.00 Insomnia, unspecified
CPT/HCPCS: 99214

== ENCOUNTER → 2025-08-06 09:19 | Outpatient (BNVA) | payer OTHER, SELFPAY | PROVIDERS: PCP Internal Medicine; Visit Provider Registered Nurse | DX: G44.209 Tension-type headache, unspecified, not intractable (principal); G43.909 Migraine, unspecified, not intractable, without status migrainosus; G47.00 Insomnia, unspecified | CPT/HCPCS: 99212 ==